=== PATIENT | female | born 1980 | race Two or more races ===

== ENCOUNTER 2020-09-21 13:38 | Outpatient (REF) | payer OTHER, MEDICAID, SELFPAY ==
[2020-09-21 14:56] LABS: Eosinophils Absolute Auto 0.1 X10*3/uL (0.0-0.4); Imm Gran Abs Auto 0.02 X10*3/uL (0.00-0.03); Imm Gran Pct Auto 0.4 % (0.0-0.4); MANUAL DIFF FLAG SCAN; SCAN SMEAR FLAG 1
[2020-09-21 14:58] LABS: Basophils Percent Auto 0.5 % (0-2); Eosinophils Percent Auto 1.9 % (0-4); Hematocrit 33.4 % (37-47); Hemoglobin 10.3 g/dl (12.0-16.0); Lymphocytes Absolute Auto 1.8 X10*3/uL (1.2-4.9); Mean Corpuscular HGB Conc 30.8 g/dl (31.0-35.0); Mean Corpuscular Hemoglobin 25.7 pg (27.0-33.0); Mean Corpuscular Volume 83.3 fL (80-98); Monocytes Absolute Auto 0.4 X10*3/uL (0.1-1.2); Monocytes Percent Auto 7.8 % (2-11); Neutrophils Absolute Auto 3.3 X10*3/uL (2.0-8.3); Neutrophils Percent Auto 58.4 % (45-73); Platelet Count 187 X10*3/uL (160-400); Red Blood Count 4.01 X10*6/uL (4.20-5.50); Red Cell Distribution Width 14.4 % (11.0-16.0); White Blood Count 5.7 X10*3/uL (4.8-10.8)
[2020-09-21 15:04] LABS: PLT ABN DIST 1
[2020-09-21 15:43] LABS: Ferritin 2 ng/mL (10-250)
== END 2020-09-21 13:39 | disposition home or self-care (01) ==
LOC: HO.LAB 13:38
PROVIDERS: Visit Provider Internal Medicine
DX: D64.9 Anemia, unspecified (principal)
CPT/HCPCS: 36415; 82728; 85025

== ENCOUNTER 2020-11-20 10:52 | Outpatient (REF) | payer OTHER, MEDICAID, SELFPAY ==
[2020-11-20 13:19] LABS: Hematocrit 35.5 % (37-47); Mean Corpuscular Hemoglobin 25.4 pg (27.0-33.0); Mean Platelet Volume 12.6 fL (9.4-12.3); Platelet Count 228 X10*3/uL (160-400); Red Blood Count 4.33 X10*6/uL (4.20-5.50)
[2020-11-20 14:15] LABS: Thyroid Stimulating Hormone 2.05 uIU/mL (0.32-4.0)
[2020-11-21 11:32] LABS: BV Int Neg Control Negative (Negative); BV Int Pos Control Positive (Positive)
[2020-11-21 13:52] LABS: C. trachomatis RNA TMA NOT DETECTED (NOT DETECTED); N. gonorrhoeae RNA TMA NOT DETECTED (NOT DETECTED)
[2020-11-22 02:17] LABS: Prolactin 14.9 ng/mL
[2020-11-23 17:56] LABS: DHEA Sulfate 231 mcg/dL (19-231)
[2020-11-26 11:48] LABS: Testosterone, Free 2.1 pg/mL (0.1-6.4); Testosterone, Total 22 ng/dL (2-45)
[2020-11-26 18:32] LABS: HPV mRNA E6/E7 rflx Not Detected (Not Detected)
== END 2020-11-20 10:53 | disposition home or self-care (01) ==
LOC: HO.LAB 10:52
PROVIDERS: PCP Internal Medicine; Referring Provider Internal Medicine; Visit Provider Advanced Practice Midwife
DX: Z12.4 Encounter for screening for malignant neoplasm of cervix (principal); N92.0 Excessive and frequent menstruation with regular cycle; L68.0 Hirsutism
CPT/HCPCS: 36415; 81025; 82627; 83498; 84146; 84402; 84403; 84443; 85027; 87480; 87491; 87510; 87591; 87624; 87660; 88142

== ENCOUNTER 2020-12-01 15:50 | Outpatient (REF) | payer OTHER, MEDICAID, SELFPAY ==
--- NOTE | 2020-12-01 15:55 | US_ITS ---
EXAMINATION: ULTRASOUND PELVIS COMPLETE. CLINICAL INFORMATION: Excessive and frequent menstruation with irregular cycle. COMPARISON: None TECHNIQUE: Transabdominal and transvaginal ultrasound the pelvis is performed. FINDINGS: Uterus is anteverted and heterogenous measuring 14.0 cm in length, 5.8 cm in AP and 6.5 cm in transverse dimension. There is solitary hypoechoic lesion in the posterior body of uterus consistent fibroid measuring 2.4 x 2.2 x 2.1 cm. No additional lesions seen. There are small nabothian cysts in the cervix on transvaginal ultrasound. The right ovary measures 5.1 x 3.2 x 1.8 cm and volume 15.4 mL. Left ovary measures 4.3 x 3.3 x 3.0 cm and volume 22.3 mL. Both ovaries are unremarkable. There is no free fluid in the cul-de-sac. US/US pelvic complete IMPRESSION: 1. Solitary uterine fibroid. Heterogenous and slightly enlarged uterus. 2. Nabothian cysts in cervix. 3. Unremarkable ovaries.
--- NOTE | 2020-12-01 15:55 | US_ITS ---
EXAMINATION: ULTRASOUND PELVIS COMPLETE. CLINICAL INFORMATION: Excessive and frequent menstruation with irregular cycle. COMPARISON: None TECHNIQUE: Transabdominal and transvaginal ultrasound the pelvis is performed. FINDINGS: Uterus is anteverted and heterogenous measuring 14.0 cm in length, 5.8 cm in AP and 6.5 cm in transverse dimension. There is solitary hypoechoic lesion in the posterior body of uterus consistent fibroid measuring 2.4 x 2.2 x 2.1 cm. No additional lesions seen. There are small nabothian cysts in the cervix on transvaginal ultrasound. The right ovary measures 5.1 x 3.2 x 1.8 cm and volume 15.4 mL. Left ovary measures 4.3 x 3.3 x 3.0 cm and volume 22.3 mL. Both ovaries are unremarkable. There is no free fluid in the cul-de-sac. US/US transvaginal IMPRESSION: 1. Solitary uterine fibroid. Heterogenous and slightly enlarged uterus. 2. Nabothian cysts in cervix. 3. Unremarkable ovaries.
== END 2020-12-01 15:51 | disposition home or self-care (01) ==
LOC: HO.US 15:50
PROVIDERS: PCP Internal Medicine; Visit Provider Advanced Practice Midwife
DX: N92.0 Excessive and frequent menstruation with regular cycle (principal)
CPT/HCPCS: 76830; 76856

== ENCOUNTER → 2020-12-07 12:01 | Outpatient (BNVA) | payer OTHER, MEDICAID, SELFPAY | PROVIDERS: PCP Internal Medicine; Visit Provider Advanced Practice Midwife ==

== ENCOUNTER 2020-12-22 13:47 | Outpatient (REF) | payer OTHER, MEDICAID, SELFPAY | END 2020-12-22 13:48 | disposition home or self-care (01) | LOC: HO.LAB 13:47 | PROVIDERS: Visit Provider Advanced Practice Midwife | DX: N93.9 Abnormal uterine and vaginal bleeding, unspecified (principal); Z32.02 Encounter for pregnancy test, result negative | CPT/HCPCS: 88305 ==

== ENCOUNTER 2020-12-22 15:32 | Outpatient (REF) | payer OTHER, MEDICAID, SELFPAY ==
--- NOTE | ~2020-12-22 | MM_ITS ---
EXAMINATION: MM SCREENING DIGITAL BREAST TOMOSYNTHESIS, BILATERAL CLINICAL INFORMATION: Screening. Asymptomatic. The lifetime risk of breast cancer based on the Tyrer-Cuzick Model is 11%. COMPARISON: Mammography: 09/02/2019 (baseline) TECHNIQUE: Digital breast tomosynthesis is performed in both the craniocaudal and mediolateral oblique views along with computer-aided detection (CAD). Synthesized 2D images are generated from the tomosynthesis. Additional exaggerated right CC view is provided. FINDINGS: There are scattered areas of fibroglandular density (ACR BI-RADS breast composition Category b). There are no significant masses, abnormal calcifications, or other abnormalities. Parenchymal pattern is similar to prior baseline exam. The axilla and skin contours are unremarkable. MM/MM tomosynthesis screening BI IMPRESSION: No mammographic evidence of malignancy. ASSESSMENT: BI-RADS 1: Negative RECOMMENDATION: Routine annual mammography screening. This patient's information was entered into a reminder system with a target due date for their next mammogram.
== END 2020-12-22 15:33 | disposition home or self-care (01) ==
LOC: HO.MAMMO 15:32
PROVIDERS: PCP Internal Medicine; Visit Provider Internal Medicine
DX: N93.9 Abnormal uterine and vaginal bleeding, unspecified (principal); Z12.31 Encounter for screening mammogram for malignant neoplasm of breast
CPT/HCPCS: 58100; 77063; 77067; 81025

== ENCOUNTER → 2020-12-29 15:20 | Outpatient (BNVA) | payer OTHER, MEDICAID, SELFPAY | PROVIDERS: PCP Internal Medicine; Visit Provider Advanced Practice Midwife ==

== ENCOUNTER 2021-03-23 11:02 | Emergency (ER) | payer OTHER, MEDICAID, SELFPAY ==
[2021-03-23 11:42] VITALS: BP 131/90; PULSE 86; RESP 18; TEMP 36.4; O2SAT 100; BMI 28.3
--- NOTE | 2021-03-23 12:01 | ED.GENADULT ---
HPI - General Adult General Chief complaint: General Medical Stated complaint: Sinus infection Time Seen by Provider: 03/23/21 12:01 History of Present Illness HPI narrative: Patient complains of frontal sinus headache, mild sinus pain, green nasal discharge, no congestion no other headache no fever no chills, no rash no cough no difficulty breathing no chest pain no sore throat Related Data Home Medications Medication Instructions Recorded Confirmed budesonide-formoterol HFA 80 2 puff INHALATION BID 10/16/20 03/30/21 mcg-4.5 mcg/actuation aerosol inhaler ferrous sulfate 324 mg (65 mg 324 mg PO DAILY 10/23/20 03/30/21 iron) tablet,delayed release Previous Rx's Medication Instructions Recorded ibuprofen 400 mg tablet 400 mg PO BID PRN #60 tab 10/16/20 omeprazole 20 mg capsule,delayed 20 mg PO .qhs 90 Days #90 cap 01/19/21 release amoxicillin 500 mg PO TID 10 Days #30 tab 03/23/21 desogestrel 0.15 mg-ethinyl 1 tab PO DAILY #28 tab 03/29/21 estradiol 0.03 mg tablet albuterol sulfate 90 mcg/actuation 1 puff PO QID PRN #8.5 g 03/30/21 aerosol inhaler cetirizine 10 mg capsule 10 mg PO DAILY PRN 90 Days #90 cap 03/30/21 Allergies Allergy/AdvReac Type Severity Reaction Status Date / Time morphine [Morphine] Allergy Intermediate VOMITING, Verified 03/30/21 15:40 N/V Penicillins Allergy Unknown Rash Verified 03/30/21 15:40 Review of Systems Review of Systems: Positive for frontal headache, sinus pain and green nasal discharge Negatives are no fever no chills no dizziness no weakness no fainting no vision changes no neck pain no stiff neck no sore throat no cough no sputum no shortness of breath PMFSH Past Medical History Source: nursing notes reviewed Medical History Asthma, moderate Chronic GERD Dysfunctional uterine bleeding Iron deficiency anemia Neck pain on left side Paresthesia of hand Surgical History H/O tubal ligation History of carpal tunnel surgery of right wrist Family History Family History Father No problems noted. Mother Breast cancer Diabetes mellitus Brother No problems noted. Brother No problems noted. Son No problems noted. Daughter No problems noted. Social History Social History Alcohol intake: never Smoking Status: Former smoker Sexual orientation: Straight/Heterosexual Physical Exam Vital Signs: Vital Signs: Last Vital Signs Temp 97.5 F 03/23/21 11:42 Pulse 86 03/23/21 11:42 Resp 18 03/23/21 11:42 BP 131/90 H 03/23/21 11:42 Pulse Ox 100 03/23/21 11:42 Body Mass Index 28.3 General appearance no acute distress The pupils equal round reactive to light, extraocular motions are intact, there is no discharge or redness The ears are clear bilaterally The nose there was tenderness over maxillary sinuses bilateral Pain was reproduced by putting the head down Pharynx was clear with no redness swelling or exudate Chest was clear to auscultation bilaterally with full symmetrical equal breath sounds The neck was supple Heart no murmur Skin no rashes Neuro no focal deficit, gait and balance were normal, verbal interaction expression and understanding were normal cranial nerves 2-12 intact as tested Course Course Course Narrative: Patient is treated for possible sinusitis, possible allergies and is well appearing and is discharged Discharge Plan Discharge Clinical Impression: Sinusitis Patient Disposition: Home, Self-Care Additional Instructions: This could be allergy, or possibly sinusitis so we are prescribing antibiotic amoxicillin and antihistamine cetirizine For dry sinuses you can use a humidifier, or if not available you can breathe steam from a warm shower or from boiling water, you can use saline nasal spray you can apply Vaseline inside the nose Return time any concerns Prescriptions: New amoxicillin 500 mg tablet 500 mg PO TID 10 Days Qty: 30 RF: 0 No Action budesonide-formoterol [Symbicort] 80-4.5 mcg/actuation HFA aerosol inhaler 2 puff inhalation BID RF: 0 ibuprofen 400 mg tablet 400 mg PO BID PRN (Reason: pain) Qty: 60 RF: 0 omeprazole 20 mg capsule,delayed release(DR/EC) 20 mg PO .qhs 90 Days Qty: 90 RF: 0 ferrous sulfate 324 mg (65 mg iron) tablet,delayed release (DR/EC) 324 mg PO DAILY RF: 0 cetirizine 10 mg capsule 10 mg PO DAILY PRN (Reason: allergy symptoms) 90 Days Qty: 90 RF: 3 albuterol sulfate 90 mcg/actuation HFA aerosol inhaler 1 puff PO QID PRN (Reason: for dyspnea) Qty: 8.5 RF: 3 desogestrel-ethinyl estradiol [Apri] 0.15-0.03 mg tablet 1 tab PO DAILY Qty: 28 RF: 7 Stand Alone Forms: Work/School Release Interventions: ED Discharge Assessment Last Done: 03/23/21 12:09 Discharge Date/Time: 03/23/21 12:09
== END 2021-03-23 12:09 | disposition home or self-care (01) ==
PROVIDERS: Emergency Provider Emergency Medicine; PCP Internal Medicine
DX: J32.9 Chronic sinusitis, unspecified (principal); Z91.09 Other allergy status, other than to drugs and biological substances; J45.909 Unspecified asthma, uncomplicated; Z87.891 Personal history of nicotine dependence
CPT/HCPCS: 99283

== ENCOUNTER → 2021-03-29 13:37 | Outpatient (BNVA) | payer OTHER, MEDICAID, SELFPAY | PROVIDERS: PCP Internal Medicine; Visit Provider Advanced Practice Midwife ==

== ENCOUNTER 2021-04-27 16:39 | Emergency (ER) | payer OTHER, MEDICAID, SELFPAY ==
[2021-04-27 17:03] VITALS: BP 126/74; PULSE 86; RESP 18; TEMP 35.9; O2SAT 98; BMI 28.8
[2021-04-27 17:58] LABS: MANUAL DIFF FLAG NO
[2021-04-27 18:00] LABS: Basophils Percent Auto 0.3 % (0-2); Eosinophils Absolute Auto 0.2 X10*3/uL (0.0-0.4); Eosinophils Percent Auto 2.1 % (0-4); Hematocrit 37.7 % (37-47); Hemoglobin 12.3 g/dl (12.0-16.0); Imm Gran Abs Auto 0.02 X10*3/uL (0.00-0.03); Imm Gran Pct Auto 0.3 % (0.0-0.4); Lymphocytes Percent Auto 26.3 % (20-40); Mean Corpuscular HGB Conc 32.6 g/dl (31.0-35.0); Mean Corpuscular Hemoglobin 28.9 pg (27.0-33.0); Mean Corpuscular Volume 88.7 fL (80-98); Mean Platelet Volume 12.9 fL (9.4-12.3); Monocytes Absolute Auto 0.6 X10*3/uL (0.1-1.2); Monocytes Percent Auto 7.6 % (2-11); Neutrophils Absolute Auto 4.8 X10*3/uL (2.0-8.3); Neutrophils Percent Auto 63.4 % (45-73); Platelet Count 170 X10*3/uL (160-400); Red Blood Count 4.25 X10*6/uL (4.20-5.50); Red Cell Distribution Width 15.5 % (11.0-16.0); White Blood Count 7.5 X10*3/uL (4.8-10.8)
[2021-04-27 18:28] LABS: Anion Gap 13 (12-20); Blood Urea Nitrogen 9 mg/dL (9-16); Calcium 8.8 mg/dL (8.4-10.2); Carbon Dioxide 25 mmol/L (22-29); Chloride 107 mmol/L (96-108); Creatinine Clr Calc Pharmacy 78.5; Estimated Glomerular Filt Rate > 60; Glucose Random 87 mg/dL (60-115); Potassium 3.9 mmol/L (3.3-5.1); Sodium 141 mmol/L (135-145)
[2021-04-27 22:33] VITALS: BP 118/74; PULSE 91; RESP 16; TEMP 36.9; O2SAT 100
--- NOTE | 2021-04-27 22:34 | ED.SKABFB ---
HPI - Skin/Abscess/Foreign Bdy General Chief complaint: Skin/Abscess/Foreign Body Stated complaint: bug bite Source: patient Mode of arrival: ambulatory Limitations: no limitations History of Present Illness HPI narrative: 40-year-old female presents with pain and swelling to the abdomen after being bit by a bug. She does have a pustule in the center of this area of swelling and redness. She did not report fevers, chills, chest pain or pressure, palpitations, shortness breath, shortness of breath on exertion, abdominal distention, dysuria, hematuria, edema, or any other concerns. MD complaint: insect bite/sting and abscess/boil Onset (ago): day(s) (To) Tetanus up to date: no Location: generalized (Abdomen) Severity: mild Severity scale (1-10): 3 Quality: burning and aching Pain Consistency: constant Relieving factors: none Exacerbating factors: palpation Context: witnessed insect bite Associated symptoms: denies other symptoms Treatments prior to arrival: attempted to drain pus at home and OTC topical medication Related Data Home Medications Medication Instructions Recorded Confirmed budesonide-formoterol HFA 80 2 puff INHALATION BID 10/16/20 03/30/21 mcg-4.5 mcg/actuation aerosol inhaler ferrous sulfate 324 mg (65 mg 324 mg PO DAILY 10/23/20 03/30/21 iron) tablet,delayed release Previous Rx's Medication Instructions Recorded ibuprofen 400 mg tablet 400 mg PO BID PRN #60 tab 10/16/20 omeprazole 20 mg capsule,delayed 20 mg PO .qhs 90 Days #90 cap 01/19/21 release amoxicillin 500 mg PO TID 10 Days #30 tab 03/23/21 desogestrel 0.15 mg-ethinyl 1 tab PO DAILY #28 tab 03/29/21 estradiol 0.03 mg tablet albuterol sulfate 90 mcg/actuation 1 puff PO QID PRN #8.5 g 03/30/21 aerosol inhaler cetirizine 10 mg capsule 10 mg PO DAILY PRN 90 Days #90 cap 03/30/21 doxycycline monohydrate 100 mg PO BID 10 Days #20 tab 04/27/21 Allergies Allergy/AdvReac Type Severity Reaction Status Date / Time morphine [Morphine] Allergy Intermediate VOMITING, Verified 04/27/21 17:03 N/V Penicillins Allergy Unknown Rash Verified 04/27/21 17:03 Review of Systems Review of Systems: Constitutional: No Fever, No Chills ENT/Mouth: No Ear Pain, No Hoarseness, No sore throat Eyes: No Eye Pain, No Swelling, No Redness, No Foreign Body Cardiovascular: No Chest Pain, No SOB Respiratory: No Cough, No Dyspnea Gastrointestinal: No Nausea, No Vomiting, No Diarrhea, No abdominal Pain Genitourinary: No Dysuria, No Hematuria Musculoskeletal: positive joint pain, No Myalgias, No Joint Swelling Skin: Positive cellulitis. No Skin lacerations, No rash Neuro: No Weakness, No Numbness, No Paresthesias, No Loss of Consciousness, No Dizziness, No Headache Psych: No Anxiety/Panic, No Depression Heme/Lymph: no easy bruising, no Lymphadenopathy Endocrine: No Polyuria, No Polydipsia Yes all other systems are reviewed and are negative [facility] Past Medical History Attestation statement: The following information was validated with the patient. Source: old records reviewed Medical History Asthma, moderate Chronic GERD Dysfunctional uterine bleeding Iron deficiency anemia Neck pain on left side Paresthesia of hand Surgical History H/O tubal ligation History of carpal tunnel surgery of right wrist Family History Family History Father No problems noted. Mother Breast cancer Diabetes mellitus Brother No problems noted. Brother No problems noted. Son No problems noted. Daughter No problems noted. Social History Social History Alcohol intake: never Advance Directives: No Advance Directives Information Provided: Yes Patient : No Sexual orientation: Straight/Heterosexual Physical Exam Vital Signs: Vital Signs: Last Vital Signs Temp 98.5 F 04/27/21 22:33 Pulse 91 04/27/21 22:33 Resp 16 04/27/21 22:33 BP 118/74 04/27/21 22:33 Pulse Ox 100 04/27/21 22:33 Body Mass Index 28.8 Appearance: Alert. Oriented X3. No acute distress. Eyes: Pupils equal, round and reactive to light. ENT: Pharynx normal. Neck: Normal inspection. Neck supple. CVS: Normal heart rate and rhythm. Pulses normal. Respiratory: No respiratory distress. Breath sounds normal. Abdomen: Soft and nontender. Skin: 5 cm x 3 cm area of induration and cellulitis to the left side of the abdomen just below the umbilicus. Skin warm and dry. Normal skin color. Normal skin turgor. Extremities: No lower extremity edema. Neuro: No motor deficit. No sensory deficit. Course Course Course Narrative: 40-year-old female presents with cellulitis from insect bite to left lower abdomen beginning at the umbilicus. There is a head, will attempt to incise and drain culture. Prepped and draped in sterile fashion. 0 mL of fluid expressed. Will treat with doxycycline. Patient verbalized understanding of and agrees plan of care discharge home. MDM - Skin/Abscess/Foreign Bdy Differential Diagnosis Differential diagnosis: Likely abscess of skin or subcutaneous tissue and cellulitis Medical Records Attestation: I reviewed the patient's medical records. Lab Data Attestation: I reviewed the patient's lab results. Result diagrams: 04/27/21 17:45 04/27/21 17:45 Labs: Lab Results 04/27/21 04/27/21 Range/Units 17:45 17:45 WBC 7.5 (4.8-10.8) X10*3/uL RBC 4.25 (4.20-5.50) X10*6/uL Hgb 12.3 (12.0-16.0) g/dl Hct 37.7 (37-47) % MCV 88.7 (80-98) fL MCH 28.9 (27.0-33.0) pg MCHC 32.6 (31.0-35.0) g/dl RDW 15.5 (11.0-16.0) % Plt Count 170 D (160-400) X10*3/uL MPV 12.9 H (9.4-12.3) fL Immature Gran % (Auto) 0.3 (0.0-0.4) % Neut % (Auto) 63.4 (45-73) % Lymph % (Auto) 26.3 (20-40) % [place] % (Auto) 7.6 (2-11) % Eos % (Auto) 2.1 (0-4) % Baso % (Auto) 0.3 (0-2) % Lymph # (Auto) 2.0 (1.2-4.9) X10*3/uL [place] # (Auto) 0.6 (0.1-1.2) X10*3/uL Eos # (Auto) 0.2 (0.0-0.4) X10*3/uL Baso # (Auto) 0.0 (0.0-0.2) X10*3/uL Abs Immat Gran (auto) 0.02 (0.00-0.03) X10*3/uL Absolute Neuts (auto) 4.8 (2.0-8.3) X10*3/uL Absolute Nucleated RBC 0.000 (0.0-0.012) X10*3/uL Nucleated RBC % (auto) 0.0 (0.0-0.2) /100WBC Sodium 141 (135-145) mmol/L Potassium 3.9 (3.3-5.1) mmol/L Chloride 107 (96-108) mmol/L Carbon Dioxide 25 (22-29) mmol/L Anion Gap 13 (12-20) BUN 9 (9-16) mg/dL Creatinine 0.94 (0.5-1.4) mg/dL Estim Creat Clear Calc 78.5 Estimated GFR > 60 Random Glucose 87 (60-115) mg/dL Calcium 8.8 (8.4-10.2) mg/dL Discharge Plan Discharge Clinical Impression: Cellulitis Qualifiers: Site of cellulitis: trunk Site of cellulitis of trunk: abdominal wall Qualified Code(s): L03.311 - Cellulitis of abdominal wall Patient Disposition: Home, Self-Care Instructions: Cellulitis (ED) Additional Instructions: you were evaluated for cellulitis around an insect bite to her abdomen. Please take doxycycline twice a day for the next 10 days. Please do not expose Yourself to sunlight as you may experience a significant medication reaction. Thank you for choosing this emergency department for evaluation. Please follow-up with primary care physician as needed. Return to the emergency department for any new, concerning, or worsening symptoms. Prescriptions: New doxycycline monohydrate 100 mg tablet 100 mg PO BID 10 Days Qty: 20 RF: 0 No Action budesonide-formoterol [Symbicort] 80-4.5 mcg/actuation HFA aerosol inhaler 2 puff inhalation BID RF: 0 ibuprofen 400 mg tablet 400 mg PO BID PRN (Reason: pain) Qty: 60 RF: 0 omeprazole 20 mg capsule,delayed release(DR/EC) 20 mg PO .qhs 90 Days Qty: 90 RF: 0 amoxicillin 500 mg tablet 500 mg PO TID 10 Days Qty: 30 RF: 0 ferrous sulfate 324 mg (65 mg iron) tablet,delayed release (DR/EC) 324 mg PO DAILY RF: 0 cetirizine 10 mg capsule 10 mg PO DAILY PRN (Reason: allergy symptoms) 90 Days Qty: 90 RF: 3 albuterol sulfate 90 mcg/actuation HFA aerosol inhaler 1 puff PO QID PRN (Reason: for dyspnea) Qty: 8.5 RF: 3 desogestrel-ethinyl estradiol [Apri] 0.15-0.03 mg tablet 1 tab PO DAILY Qty: 28 RF: 7 Interventions: ED Discharge Assessment Last Done: 04/28/21 00:23 Discharge Date/Time: 04/28/21 00:28
[2021-04-27] MEDS: Diphth,Pertus(ACell),Tet Adult 0.5 ML SYRINGE IM (23:07)
[2021-04-27] MEDS: Lidocaine HCl 2 % MPF 5 ML VIAL SUBCUT (23:07)
== END 2021-04-28 00:28 | disposition home or self-care (01) ==
PROVIDERS: Internal Medicine; Emergency Provider Emergency Medicine; PCP Internal Medicine
DX: L03.311 Cellulitis of abdominal wall (principal); S30.861A Insect bite (nonvenomous) of abdominal wall, initial encounter; L02.211 Cutaneous abscess of abdominal wall; B95.61 Methicillin susceptible Staphylococcus aureus infection as the cause of diseases classified elsewhere; W57.XXXA Bitten or stung by nonvenomous insect and other nonvenomous arthropods, initial encounter; Y93.9 Activity, unspecified; Y92.9 Unspecified place or not applicable; Y99.9 Unspecified external cause status
CPT/HCPCS: 36415; 80048; 85025; 87071; 87147; 87186; 87205; 90471; 90715; 99284

== ENCOUNTER 2021-04-30 13:25 | Emergency (ER) | payer OTHER, MEDICAID, SELFPAY ==
[2021-04-30 15:05] VITALS: BP 108/69; PULSE 77; RESP 18; TEMP 37; O2SAT 100; BMI 28.3
[2021-04-30 16:28] LABS: MANUAL DIFF FLAG NO
[2021-04-30 16:31] LABS: Basophils Percent Auto 0.3 % (0-2); Eosinophils Absolute Auto 0.1 X10*3/uL (0.0-0.4); Hematocrit 37.1 % (37-47); Hemoglobin 12.1 g/dl (12.0-16.0); Imm Gran Abs Auto 0.03 X10*3/uL (0.00-0.03); Imm Gran Pct Auto 0.5 % (0.0-0.4); Lymphocytes Absolute Auto 1.8 X10*3/uL (1.2-4.9); Lymphocytes Percent Auto 29.6 % (20-40); Mean Corpuscular HGB Conc 32.6 g/dl (31.0-35.0); Mean Corpuscular Hemoglobin 28.9 pg (27.0-33.0); Mean Corpuscular Volume 88.5 fL (80-98); Mean Platelet Volume 12.8 fL (9.4-12.3); Monocytes Absolute Auto 0.4 X10*3/uL (0.1-1.2); Monocytes Percent Auto 7.4 % (2-11); Neutrophils Absolute Auto 3.6 X10*3/uL (2.0-8.3); Neutrophils Percent Auto 60.2 % (45-73); Platelet Count 171 X10*3/uL (160-400); Red Blood Count 4.19 X10*6/uL (4.20-5.50); Red Cell Distribution Width 15.2 % (11.0-16.0); White Blood Count 5.9 X10*3/uL (4.8-10.8)
[2021-04-30 16:59] LABS: Alanine Aminotransferase 10 U/L (0-31); Alkaline Phosphatase 74 U/L (39-117); Anion Gap 13 (12-20); Aspartate Amino Transferase 17 U/L (5-31); Bilirubin Total 0.8 mg/dL (0.0-1.0); Blood Urea Nitrogen 9 mg/dL (9-16); Calcium 9.1 mg/dL (8.4-10.2); Carbon Dioxide 24 mmol/L (22-29); Chloride 106 mmol/L (96-108); Creatinine Clr Calc Pharmacy 92.7; Estimated Glomerular Filt Rate > 60; Glucose Random 91 mg/dL (60-115); Potassium 4.2 mmol/L (3.3-5.1); Sodium 139 mmol/L (135-145); Total Protein 7.5 g/dL (6.5-8.0)
--- NOTE | 2021-04-30 17:31 | ED_ITS ---
HPI - General Adult General Chief complaint: Wound/Laceration Stated complaint: wound check Time Seen by Provider: 04/30/21 14:36 Source: patient Mode of arrival: ambulatory Limitations: no limitations History of Present Illness HPI narrative: 1-year-old female here today for wound check. Patient was seen today days ago after she was bit by an insect and was found to have infective wound around her umbilicus. The area was swabbed and sent for micro testing and she was placed on doxycycline b.i.d. for 10 days. Today culture came back showing MRSA. Susceptible to tetracycline patient is already on doxycycline. She was worried that her wound might have been getting worst. Patient reports that it started draining pus. Patient reports that she was called by 1 of that emergency room providers this morning and was told to come back if her symptoms were getting worse. Patient denies any fever or chills. Denies any other concerning symptoms. Reports the area is hard, about 2 cm round with hole in the middle that is draining fluid. Patient denies any odor, blood. Reports to be painful to touch. Related Data Home Medications Medication Instructions Recorded Confirmed budesonide-formoterol HFA 80 2 puff INHALATION BID 10/16/20 03/30/21 mcg-4.5 mcg/actuation aerosol inhaler ferrous sulfate 324 mg (65 mg 324 mg PO DAILY 10/23/20 03/30/21 iron) tablet,delayed release Previous Rx's Medication Instructions Recorded ibuprofen 400 mg tablet 400 mg PO BID PRN #60 tab 10/16/20 omeprazole 20 mg capsule,delayed 20 mg PO .qhs 90 Days #90 cap 01/19/21 release amoxicillin 500 mg PO TID 10 Days #30 tab 03/23/21 desogestrel 0.15 mg-ethinyl 1 tab PO DAILY #28 tab 03/29/21 estradiol 0.03 mg tablet albuterol sulfate 90 mcg/actuation 1 puff PO QID PRN #8.5 g 03/30/21 aerosol inhaler cetirizine 10 mg capsule 10 mg PO DAILY PRN 90 Days #90 cap 03/30/21 doxycycline monohydrate 100 mg PO BID 10 Days #20 tab 04/27/21 cephalexin 500 mg PO BID 10 Days #20 cap 04/30/21 ibuprofen 600 mg PO Q8H PRN #20 tab 06/18/21 Allergies Allergy/AdvReac Type Severity Reaction Status Date / Time morphine [Morphine] Allergy Intermediate VOMITING, Verified 04/27/21 17:03 N/V Penicillins Allergy Unknown Rash Verified 04/27/21 17:03 Review of Systems Review of Systems: Constitutional : No Weight loss, No Fever, No Chills, No Night Sweats, No Fatigue, No Malaise ENT/Mouth : No Hearing loss, No Ear Pain, No Nasal Congestion, No Sinus Pain, No Hoarseness, No sore throat, No Rhinorrhea, No Swallowing Difficulty Eyes: No Eye Pain, No Swelling, No Redness, No Foreign Body, No Discharge, No Vision Changes Cardiovascular : No Chest Pain, No SOB, No Dyspnea on Exertion, No Orthopnea, No Edema, No Palpitations Respiratory : No Cough, No Sputum, No Wheezing, No Smoke Exposure, No Dyspnea Gastrointestinal : No Nausea, No Vomiting, No Diarrhea, No Constipation, No abdominal Pain, No Hematochezia, No Melena Genitourinary : no irregular bleeding, No Dysuria, No Urinary Frequency, No Hematuria, No Urinary Incontinence, No Urgency, No Flank Pain, No Urinary Flow Changes, No Hesitancy Musculoskeletal : No joint pain, No Myalgias, No Joint Swelling Skin : No Skin Lesions, No rash, insect bite to abdominal area Neuro : No Weakness, No Numbness, No Paresthesias, No Loss of Consciousness, No Dizziness, No Headache Psych : No Anxiety/Panic, No Depression, No SI/HI/AH/VH, No Social Issues, Heme/Lymph: No Bruising, No Bleeding,No Lymphadenopathy Endocrine : No Polyuria, No Polydipsia, No Temperature Intolerance Yes all other systems are reviewed and are negative [facility] Past Medical History Medical History Asthma, moderate Chronic GERD Dysfunctional uterine bleeding Iron deficiency anemia Neck pain on left side Paresthesia of hand Surgical History H/O tubal ligation History of carpal tunnel surgery of right wrist Family History Family History Father No problems noted. Mother Breast cancer Diabetes mellitus Brother No problems noted. Brother No problems noted. Son No problems noted. Daughter No problems noted. Social History Social History Alcohol intake: never Advance Directives: No Advance Directives Information Provided: No Patient : No Sexual orientation: Straight/Heterosexual Physical Exam Vital Signs: Vital Signs: Last Vital Signs Temp 98.6 F 04/30/21 15:05 Pulse 77 04/30/21 15:05 Resp 18 04/30/21 15:05 BP 108/69 04/30/21 15:05 Pulse Ox 100 04/30/21 15:05 Body Mass Index 28.3 Const: General: healthy appearing, no acute distress and well developed Nutritional Appearance: well nourished Orientation/consciousness: patient oriented x3 Neck: Neck: Yes normal visual inspection, Yes full ROM and Yes trachea midline Thyroid: Thyroid normal Resp: Auscultation: clear to auscultation bilaterally Cardio: Rate: regular rate Rhythm: regular rhythm GI: Inspection: Yes normal to inspection and No distended Palpation (GI): No hepatosplenomegaly present Auscultation: normal bowel sounds Skin: General skin exam: elasticity normal, turgor normal, dry skin and other (2 cm raised redness with 3 mm open area in the middle that it is draining ) Neuro: General: patient oriented x3 Course Course Course Narrative: 40-year-old here for wound check. Patient was seen here on a 16 for insect bite. She refused states that she scratched the area and the area got infected. Was placed on doxycycline. Today's is 2nd day on it. Results of the culture came back as MRSA. Patient is on appropriate treatment. Wound is draining. Negative for redness or increased warmth. Area painful I will have for go home and continue doxycycline. I will give her script for ibuprofen. Patient was told to monitor her wound. Apply warm compresses to promote drainage. Areas already draining. Patient does not want to have incision to open the area more. She was told to return in 3-4 days if the area will not get better. Patient is agreeable to plan of care and verbalizes understanding. She was given the opportunity to ask questions and all questions answered. Medical Decision Making Lab Data Result diagrams: 04/30/21 16:08 04/30/21 16:08 Labs: Lab Results 04/30/21 04/30/21 Range/Units 16:08 16:08 WBC 5.9 (4.8-10.8) X10*3/uL RBC 4.19 L (4.20-5.50) X10*6/uL Hgb 12.1 (12.0-16.0) g/dl Hct 37.1 (37-47) % MCV 88.5 (80-98) fL MCH 28.9 (27.0-33.0) pg MCHC 32.6 (31.0-35.0) g/dl RDW 15.2 (11.0-16.0) % Plt Count 171 (160-400) X10*3/uL MPV 12.8 H (9.4-12.3) fL Immature Gran % (Auto) 0.5 H (0.0-0.4) % Neut % (Auto) 60.2 (45-73) % Lymph % (Auto) 29.6 (20-40) % [place] % (Auto) 7.4 (2-11) % Eos % (Auto) 2.0 (0-4) % Baso % (Auto) 0.3 (0-2) % Lymph # (Auto) 1.8 (1.2-4.9) X10*3/uL [place] # (Auto) 0.4 (0.1-1.2) X10*3/uL Eos # (Auto) 0.1 (0.0-0.4) X10*3/uL Baso # (Auto) 0.0 (0.0-0.2) X10*3/uL Abs Immat Gran (auto) 0.03 (0.00-0.03) X10*3/uL Absolute Neuts (auto) 3.6 (2.0-8.3) X10*3/uL Absolute Nucleated RBC 0.000 (0.0-0.012) X10*3/uL Nucleated RBC % (auto) 0.0 (0.0-0.2) /100WBC Sodium 139 (135-145) mmol/L Potassium 4.2 (3.3-5.1) mmol/L Chloride 106 (96-108) mmol/L Carbon Dioxide 24 (22-29) mmol/L Anion Gap 13 (12-20) BUN 9 (9-16) mg/dL Creatinine 0.82 (0.5-1.4) mg/dL Estim Creat Clear Calc 92.7 Estimated GFR > 60 Random Glucose 91 (60-115) mg/dL Calcium 9.1 (8.4-10.2) mg/dL Total Bilirubin 0.8 (0.0-1.0) mg/dL AST 17 (5-31) U/L ALT 10 (0-31) U/L Alkaline Phosphatase 74 (39-117) U/L Total Protein 7.5 (6.5-8.0) g/dL Albumin 4.0 (3.5-5.0) g/dL Discharge Plan Discharge Clinical Impression: Abscess, MRSA cellulitis Patient Disposition: Home, Self-Care Instructions: MRSA (Methicillin-Resistant Staphylococcus Aureus) (ED), Abscess (ED) Additional Instructions: You were seen here today for a wound check. Culture came back positive for M RSA. You are on appropriate treatment for that type of an infection. Please apply warm compresses to the area for 15 minutes at the time. Monitor the area for increased redness, fever and chills. Let the wound continue to drain. Please make sure you complete all your antibiotics. You will get script for anti-inflammatory medication that will help with your pain. Please take it as prescribed. Make sure you take the medication on a full stomach. You may return to emergency department if the symptoms will get worse or if he will experience any other concerning symptoms. Prescriptions: New ibuprofen 600 mg tablet 600 mg PO Q8H PRN (Reason: pain) Qty: 20 RF: 0 No Action budesonide-formoterol [Symbicort] 80-4.5 mcg/actuation HFA aerosol inhaler 2 puff inhalation BID RF: 0 ibuprofen 400 mg tablet 400 mg PO BID PRN (Reason: pain) Qty: 60 RF: 0 omeprazole 20 mg capsule,delayed release(DR/EC) 20 mg PO .qhs 90 Days Qty: 90 RF: 0 amoxicillin 500 mg tablet 500 mg PO TID 10 Days Qty: 30 RF: 0 doxycycline monohydrate 100 mg tablet 100 mg PO BID 10 Days Qty: 20 RF: 0 cephalexin 500 mg capsule 500 mg PO BID 10 Days Qty: 20 RF: 0 ferrous sulfate 324 mg (65 mg iron) tablet,delayed release (DR/EC) 324 mg PO DAILY RF: 0 cetirizine 10 mg capsule 10 mg PO DAILY PRN (Reason: allergy symptoms) 90 Days Qty: 90 RF: 3 albuterol sulfate 90 mcg/actuation HFA aerosol inhaler 1 puff PO QID PRN (Reason: for dyspnea) Qty: 8.5 RF: 3 desogestrel-ethinyl estradiol [Apri] 0.15-0.03 mg tablet 1 tab PO DAILY Qty: 28 RF: 7 Interventions: ED Discharge Assessment Last Done: 04/30/21 17:45 Discharge Date/Time: 04/30/21 17:54
== END 2021-04-30 17:54 | disposition home or self-care (01) ==
PROVIDERS: Emergency Provider Internal Medicine; PCP Internal Medicine
DX: L03.316 Cellulitis of umbilicus (principal); B95.62 Methicillin resistant Staphylococcus aureus infection as the cause of diseases classified elsewhere; S30.861D Insect bite (nonvenomous) of abdominal wall, subsequent encounter; W57.XXXD Bitten or stung by nonvenomous insect and other nonvenomous arthropods, subsequent encounter
CPT/HCPCS: 36415; 80053; 85025; 99283

== ENCOUNTER 2021-09-05 10:42 | Emergency (ER) | payer OTHER, MEDICAID, SELFPAY ==
[2021-09-05 10:49] VITALS: BP 120/76; PULSE 88; RESP 18; TEMP 36.1; O2SAT 97; BMI 28.3
--- NOTE | 2021-09-05 11:02 | ED_ITS ---
HPI - General Adult General Chief complaint: Extremity Problem Stated complaint: ?inf toe Time Seen by Provider: 09/05/21 10:52 Source: patient Mode of arrival: ambulatory Limitations: no limitations History of Present Illness HPI narrative: Patient presents to the ED left big toe pain with surround redness near area of pedicure that occurred two days ago. patient states while and soon after pedicure patient had soreness and the day after there was redness. patient denies any pus discharge, fever, chills, blunt trauma, or any other conerning symptoms. Related Data Home Medications Medication Instructions Recorded Confirmed budesonide-formoterol HFA 80 2 puff INHALATION BID 10/16/20 03/30/21 mcg-4.5 mcg/actuation aerosol inhaler (Symbicort) desogestrel 0.15 mg-ethinyl 1 tab PO DAILY 07/12/21 estradiol 0.03 mg tablet (Isibloom) Previous Rx's Medication Instructions Recorded ibuprofen 400 mg tablet 400 mg PO BID PRN #60 tab 10/16/20 amoxicillin 500 mg tablet 500 mg PO TID 10 Days #30 tab 03/23/21 desogestrel 0.15 mg-ethinyl 1 tab PO DAILY #28 tab 03/29/21 estradiol 0.03 mg tablet (Apri) albuterol sulfate 90 mcg/actuation 1 puff PO QID PRN #8.5 g 03/30/21 aerosol inhaler cetirizine 10 mg capsule 10 mg PO DAILY PRN 90 Days #90 cap 03/30/21 doxycycline monohydrate 100 mg 100 mg PO BID 10 Days #20 tab 04/27/21 tablet cephalexin 500 mg capsule 500 mg PO BID 10 Days #20 cap 04/30/21 ibuprofen 600 mg tablet 600 mg PO Q8H PRN #20 tab 04/30/21 prednisone 20 mg tablet 20 mg PO .COMPLEX #18 tab 07/12/21 omeprazole 20 mg capsule,delayed 20 mg PO .qhs 90 Days #90 cap 08/03/21 release ferrous sulfate 325 mg (65 mg 325 mg PO DAILY #30 tab 08/23/21 iron) tablet,delayed release cephalexin 500 mg capsule 500 mg PO QID 7 Days #28 cap 09/05/21 doxycycline hyclate 100 mg tablet 100 mg PO BID 7 Days #14 tab 09/05/21 naproxen 500 mg tablet 500 mg PO BID PRN #28 tab 09/05/21 Allergies Allergy/AdvReac Type Severity Reaction Status Date / Time morphine [Morphine] Allergy Intermediate VOMITING, Verified 07/12/21 14:29 N/V Penicillins Allergy Unknown Rash Verified 04/27/21 17:03 Review of Systems Review of Systems: Yes all other systems are reviewed and are negative Constitutional: Constitutional: Reports as per HPI and Reports no additional constitutional complaints Eyes: Eyes: Reports as per HPI and Reports no additional eye complaints ENT: Reports system reviewed and no additional complaints, except as documented and Reports as per HPI Cardiovascular: Cardiovascular: Reports as per HPI and Reports no additional cardiovascular complaints Respiratory: Respiratory: Reports as per HPI and Reports no additional respiratory complaints Gastrointestinal: Gastrointestinal: Reports as per HPI and Reports no additional gastrointestinal complaints Genitourinary: Genitourinary: Reports no additional female genitourinary complaints and Reports as per HPI Musculoskeletal: Musculoskeletal: Reports no additional musculoskeletal complaints and Reports as per HPI Comments: big toe redness. [facility] [place] Past Medical History Medical History Asthma, moderate Chronic GERD Dysfunctional uterine bleeding Iron deficiency anemia Neck pain on left side Paresthesia of hand Surgical History H/O tubal ligation History of carpal tunnel surgery of right wrist Family History Family History Father No problems noted. Mother Breast cancer Diabetes mellitus Brother No problems noted. Brother No problems noted. Son No problems noted. Daughter No problems noted. Social History Social History Alcohol intake: never Advance Directives: No Patient : No Sexual orientation: Straight/Heterosexual Physical Exam Vital Signs: Vital Signs: Last Vital Signs Temp 97 F 09/05/21 10:49 Pulse 88 09/05/21 10:49 Resp 18 09/05/21 10:49 BP 120/76 09/05/21 10:49 Pulse Ox 97 09/05/21 10:49 Body Mass Index 28.3 Const: General: cooperative, healthy appearing, comfortable, no acute distress, well developed, alert and awake Orientation/consciousness: patient oriented x3 HENMT: Head: Yes normal to inspection, Yes No palpable skull fracture present, Yes normocephalic and Yes atraumatic Eyes: General: appearance normal, both eyes and all related structures Neck: Neck: Yes normal visual inspection, Yes full ROM, Yes no lymphadenopath y, Yes no meningeal signs, Yes trachea midline, Yes supple and No tender Chest: Chest palpation & inspection: normal inspection of the chest and normal palpation of entire chest wall Resp: Effort & Inspection: normal respiratory effort and able to speak in complete sentences Auscultation: clear to auscultation bilaterally Cardio: Jugular venous distension: no JVD Heart sounds: S1 normal heart sound present and S2 normal heart sound present GI: Inspection: Yes normal to inspection and No abdominal wall ecchymosis Palpation (GI): Soft to palpation, not firm, nontender, no guarding and not rigid : General: No CVA tenderness and Yes no CVA tenderness Back/Spine/Pelvis: Back: no CVA tenderness, No CVA tenderness and No back tenderness Neuro: General: patient oriented x3, gait normal, no meningeal signs and CN's II-XI intact bilaterally Extrem: General: Yes normal to inspection and Yes full ROM Ankle/foot/toe images: 1. positive for erythema and tenderness. negative for pus discharge, green disclorcation, deformity, ecchymosis, wounds, ulcers, foul odor, or coldness. motor, neuro, and vascular exam is intact. Psych: Appearance: grossly normal, well kempt and not disheveled Course Course Course Narrative: History and physical exam indicates more early cellulitis vs early parynochia. no I &D indicated. No suspecting ingrown toe nail. No nail extraction indicated. Reevaluation(s) Reevaluation #1: Patient will be discharged with antibiotics, and educated on warm compress and warm soaks. Time: 11:22 Medical Decision Making [facility] [place] Narrative Medical decision making narrative: Early cellulitis vs early paronchia Discharge Plan Discharge Clinical Impression: Cellulitis, Paronychia of great toe Patient Disposition: Home, Self-Care Instructions: Paronychia (ED), Cellulitis (ED), Warm Compress or Soak (ED) Additional Instructions: History and physical exam inidicates more cellulitis vs eary paronychia. No incision or drainage recommedned. Recommed warm compress or warm soaks at least 4 times a day for 15 minutes. Return to the immediately for worsening pain, redness, greeen discloration, pus discharge, foul odor, fever, chills, or any other concerning symptoms. Return to the ED in 4 days if no improvement. Please follow up with PCP. Prescriptions: New cephalexin 500 mg capsule 500 mg PO QID 7 Days Qty: 28 RF: 0 doxycycline hyclate 100 mg tablet 100 mg PO BID 7 Days Qty: 14 RF: 0 naproxen 500 mg tablet 500 mg PO BID PRN (Reason: pain) Qty: 28 RF: 0 No Action budesonide-formoterol [Symbicort] 80-4.5 mcg/actuation HFA aerosol inhaler 2 puff inhalation BID RF: 0 ibuprofen 400 mg tablet 400 mg PO BID PRN (Reason: pain) Qty: 60 RF: 0 omeprazole 20 mg capsule,delayed release(DR/EC) 20 mg PO .qhs 90 Days Qty: 90 RF: 0 ferrous sulfate 325 mg (65 mg iron) tablet,delayed release (DR/EC) 325 mg PO DAILY Qty: 30 RF: 2 amoxicillin 500 mg tablet 500 mg PO TID 10 Days Qty: 30 RF: 0 doxycycline monohydrate 100 mg tablet 100 mg PO BID 10 Days Qty: 20 RF: 0 cephalexin 500 mg capsule 500 mg PO BID 10 Days Qty: 20 RF: 0 ibuprofen 600 mg tablet 600 mg PO Q8H PRN (Reason: pain) Qty: 20 RF: 0 desogestrel-ethinyl estradiol [Isibloom] 0.15-0.03 mg tablet 1 tab PO DAILY RF: 0 prednisone 20 mg tablet 20 mg PO .COMPLEX Qty: 18 RF: 0 cetirizine 10 mg capsule 10 mg PO DAILY PRN (Reason: allergy symptoms) 90 Days Qty: 90 RF: 3 albuterol sulfate 90 mcg/actuation HFA aerosol inhaler 1 puff PO QID PRN (Reason: for dyspnea) Qty: 8.5 RF: 3 desogestrel-ethinyl estradiol [Apri] 0.15-0.03 mg tablet 1 tab PO DAILY Qty: 28 RF: 7 Interventions: ED Discharge Assessment Last Done: 09/05/21 11:41 Discharge Date/Time: 09/05/21 11:41 Print Language: Greenlandic
[2021-09-05] MEDS: Ibuprofen 800 MG TABLET PO (11:12)
== END 2021-09-05 11:41 | disposition home or self-care (01) ==
PROVIDERS: Emergency Provider Emergency Medicine; PCP Internal Medicine
DX: L03.032 Cellulitis of left toe (principal); Z79.899 Other long term (current) drug therapy
CPT/HCPCS: 99283; 99284

== ENCOUNTER 2021-09-15 08:47 | Outpatient (REF) | payer OTHER, MEDICAID, SELFPAY ==
[2021-09-15 11:46] LABS: Basophils Percent Auto 0.4 % (0-2); Imm Gran Abs Auto 0.02 X10*3/uL (0.00-0.03); Imm Gran Pct Auto 0.4 % (0.0-0.4); Red Cell Distribution Width 12.1 % (11.0-16.0)
[2021-09-15 11:48] LABS: Eosinophils Absolute Auto 0.2 X10*3/uL (0.0-0.4); Eosinophils Percent Auto 3.3 % (0-4); Hemoglobin 13.1 g/dl (12.0-16.0); Lymphocytes Absolute Auto 1.5 X10*3/uL (1.2-4.9); Lymphocytes Percent Auto 31.3 % (20-40); Mean Corpuscular HGB Conc 34.5 g/dl (31.0-35.0); Mean Corpuscular Hemoglobin 33.2 pg (27.0-33.0); Mean Corpuscular Volume 96.4 fL (80.0-98.0); Mean Platelet Volume 13.1 fL (9.4-12.3); Monocytes Absolute Auto 0.5 X10*3/uL (0.1-1.2); Monocytes Percent Auto 9.8 % (2-11); Neutrophils Absolute Auto 2.64 x10*3/uL (2.0-8.3); Neutrophils Percent Auto 54.8 % (45-73); Platelet Count 149 X10*3/uL (160-400); Red Blood Count 3.94 X10*6/uL (4.20-5.50); White Blood Count 4.8 X10*3/uL (4.8-10.8)
[2021-09-15 12:34] LABS: Ferritin 45 ng/mL (10-250)
== END 2021-09-15 08:48 | disposition home or self-care (01) ==
LOC: HO.HMGCLDS 08:47
PROVIDERS: Visit Provider Internal Medicine
DX: D64.9 Anemia, unspecified (principal); J45.909 Unspecified asthma, uncomplicated
CPT/HCPCS: 36415; 82728; 85025

== ENCOUNTER 2021-11-11 14:39 | Outpatient (REF) | payer OTHER, MEDICAID, SELFPAY ==
[2021-11-11 16:29] LABS: MANUAL DIFF FLAG NO
[2021-11-11 16:32] LABS: Basophils Percent Auto 0.4 % (0-2); Eosinophils Absolute Auto 0.2 X10*3/uL (0.0-0.4); Eosinophils Percent Auto 2.3 % (0-4); Hematocrit 40.3 % (37.0-47.0); Imm Gran Abs Auto 0.03 X10*3/uL (0.00-0.03); Imm Gran Pct Auto 0.4 % (0.0-0.4); Lymphocytes Absolute Auto 2.4 X10*3/uL (1.2-4.9); Lymphocytes Percent Auto 34.4 % (20-40); Mean Corpuscular HGB Conc 34.7 g/dl (31.0-35.0); Monocytes Absolute Auto 0.6 X10*3/uL (0.1-1.2); Monocytes Percent Auto 8.8 % (2-11); Neutrophils Absolute Auto 3.7 x10*3/uL (2.0-8.3); Neutrophils Percent Auto 53.7 % (45-73); Platelet Count 169 X10*3/uL (160-400); Red Blood Count 4.24 X10*6/uL (4.20-5.50); Red Cell Distribution Width 11.7 % (11.0-16.0)
[2021-11-11 16:43] LABS: Alanine Aminotransferase 49 U/L (0-31); Albumin Level 4.1 g/dL (3.5-5.0); Alkaline Phosphatase 68 U/L (39-117); Anion Gap 11 (12-20); Aspartate Amino Transferase 36 U/L (5-31); Bilirubin Total 0.8 mg/dL (0.0-1.0); Blood Urea Nitrogen 11 mg/dL (9-16); Calcium 9.5 mg/dL (8.4-10.2); Carbon Dioxide 28 mmol/L (22-29); Chloride 103 mmol/L (96-108); Estimated Glomerular Filt Rate > 60; Glucose Random 91 mg/dL (60-115); Potassium 4.1 mmol/L (3.3-5.1); Sodium 138 mmol/L (135-145); Total Protein 7.7 g/dL (6.5-8.0)
== END 2021-11-11 14:40 | disposition home or self-care (01) ==
LOC: HO.HMGCLDS 14:39
PROVIDERS: PCP Internal Medicine; Visit Provider Internal Medicine
DX: J45.909 Unspecified asthma, uncomplicated (principal); K21.9 Gastro-esophageal reflux disease without esophagitis; R21 Rash and other nonspecific skin eruption; Z91.09 Other allergy status, other than to drugs and biological substances
CPT/HCPCS: 36415; 80053; 85025

== ENCOUNTER 2021-11-25 09:01 | Emergency (ER) | payer OTHER, MEDICAID, SELFPAY ==
--- NOTE | ~2021-11-25 | US_ITS ---
EXAMINATION: US PELVIS CLINICAL INFORMATION: Pelvic pain and bleeding. COMPARISON: None TECHNIQUE: Ultrasound of the pelvis is performed using both transabdominal and transvaginal transducers along with Doppler. Patient refused transvaginal ultrasound exam. FINDINGS: UTERUS: The uterus is anteverted, anteflexed and measures 12.0 cm in length, 5.8 cm in AP and 6.5 cm in transverse dimension. The double wall endometrial thickness is 0.3 mm. The uterus is smooth in contour and has normal myometrial echogenicity. There is a hypoechoic lesion in the posterior body of uterus measuring 1.9 x 1.1 x 1.7 cm. Previously it measured 2.4 x 2.2 x 2.1 cm. ADNEXA: Both ovaries are visualized. There is normal color flow to the adnexa. There is no ovarian torsion. There is no pelvic ascites or fluid collection. Right ovary measures 4.2 x 1.4 x 4.1 cm and volume 8.5 Left ovary measures 2.9 x 2.0 x 2.8 cm and volume 12.6 No free fluid in the cul-de-sac. US/US pelvic complete IMPRESSION: Small posterior uterine fibroid, minimally smaller. No new fibroid. Normal ovaries. No free fluid in cul-de-sac.
--- NOTE | ~2021-11-25 | US_ITS ---
EXAMINATION: US PELVIS CLINICAL INFORMATION: Pelvic pain and bleeding. COMPARISON: None TECHNIQUE: Ultrasound of the pelvis is performed using both transabdominal and transvaginal transducers along with Doppler. Patient refused transvaginal ultrasound exam. FINDINGS: UTERUS: The uterus is anteverted, anteflexed and measures 12.0 cm in length, 5.8 cm in AP and 6.5 cm in transverse dimension. The double wall endometrial thickness is 0.3 mm. The uterus is smooth in contour and has normal myometrial echogenicity. There is a hypoechoic lesion in the posterior body of uterus measuring 1.9 x 1.1 x 1.7 cm. Previously it measured 2.4 x 2.2 x 2.1 cm. ADNEXA: Both ovaries are visualized. There is normal color flow to the adnexa. There is no ovarian torsion. There is no pelvic ascites or fluid collection. Right ovary measures 4.2 x 1.4 x 4.1 cm and volume 8.5 Left ovary measures 2.9 x 2.0 x 2.8 cm and volume 12.6 No free fluid in the cul-de-sac. US/US pelvic ovarian doppler IMPRESSION: Small posterior uterine fibroid, minimally smaller. No new fibroid. Normal ovaries. No free fluid in cul-de-sac.
[2021-11-25 09:32] VITALS: BP 127/78; PULSE 74; RESP 16; TEMP 35.9; O2SAT 98; BMI 29.9
[2021-11-25 10:02] LABS: Appearance Urine HAZY; Color Urine YELLOW; Glucose Urine UA NEG (NEG); Leukocyte Esterase Urine TRACE (NEG); Nitrite Urine NEG (NEG); Specific Gravity - Urine >= 1.030 (1.005-1.025); UACC Culture Trigger YES; Urine Blood 3+ (NEG); Urine Ketones 5 MG/DL (NEG); Urine Protein 1+ MG/DL (NEG-TRACE)
[2021-11-25 10:04] LABS: UPreg QC Valid YES; Urine Pregnancy NEGATIVE (NEGATIVE)
[2021-11-25 10:23] LABS: Bacteria Urine 1+ /LPF; Mucus Urine 1+ /LPF; RBC Urine 50-75 /HPF (0); Squamous Epithelial Cell Urine 2+ /LPF
[2021-11-25 14:28] LABS: MANUAL DIFF FLAG NO
[2021-11-25 14:35] LABS: Basophils Percent Auto 0.4 % (0-2); Eosinophils Absolute Auto 0.2 X10*3/uL (0.0-0.4); Eosinophils Percent Auto 2.9 % (0-4); Hematocrit 39.5 % (37.0-47.0); Hemoglobin 13.6 g/dl (12.0-16.0); Imm Gran Abs Auto 0.02 X10*3/uL (0.00-0.03); Imm Gran Pct Auto 0.3 % (0.0-0.4); Lymphocytes Percent Auto 28.7 % (20-40); Mean Corpuscular HGB Conc 34.4 g/dl (31.0-35.0); Mean Corpuscular Hemoglobin 32.6 pg (27.0-33.0); Mean Corpuscular Volume 94.7 fL (80.0-98.0); Mean Platelet Volume 12.3 fL (9.4-12.3); Monocytes Absolute Auto 0.6 X10*3/uL (0.1-1.2); Monocytes Percent Auto 8.1 % (2-11); Neutrophils Absolute Auto 4.1 x10*3/uL (2.0-8.3); Neutrophils Percent Auto 59.6 % (45-73); Platelet Count 172 X10*3/uL (160-400); Red Blood Count 4.17 X10*6/uL (4.20-5.50); Red Cell Distribution Width 11.4 % (11.0-16.0); White Blood Count 6.9 X10*3/uL (4.8-10.8)
[2021-11-25 14:53] LABS: Anion Gap 9 (12-20); Blood Urea Nitrogen 10 mg/dL (9-16); Calcium 9.6 mg/dL (8.4-10.2); Carbon Dioxide 31 mmol/L (22-29); Chloride 106 mmol/L (96-108); Creatinine Clr Calc Pharmacy 89.9; Estimated Glomerular Filt Rate > 60; Glucose Random 93 mg/dL (60-115); Potassium 4.9 mmol/L (3.3-5.1); Sodium 141 mmol/L (135-145)
[2021-11-25 15:05] LABS: IDNOW Serial# 08D9AD1C
[2021-11-25 15:06] LABS: COVID-19 Test Negative (Negative)
--- NOTE | 2021-11-25 15:48 | ED.FEMALEGU ---
HPI - Female Genitourinary General Chief complaint: Vaginal Bleeding Stated complaint: vaginal bleeding Time Seen by Provider: 11/25/21 13:07 History of Present Illness HPI Narrative: Patient complains of prolonged bleeding since last menstruation with crampy pain mild but frequent, no dizziness or weakness, it is been going on for 11 days and most days it is 2 or 3 pads and some clots when she urinates Related Data Previous Rx's Medication Instructions Recorded desogestrel 0.15 mg-ethinyl 1 tab PO DAILY #28 tab 03/29/21 estradiol 0.03 mg tablet (Apri) ibuprofen 600 mg tablet 600 mg PO Q8H PRN #20 tab 04/30/21 ferrous sulfate 325 mg (65 mg 325 mg PO DAILY #30 tab 08/23/21 iron) tablet,delayed release albuterol sulfate 90 mcg/actuation 1 puff PO QID PRN #8.5 g 09/10/21 aerosol inhaler budesonide-formoterol HFA 80 2 puff INHALATION BID 30 Days 09/10/21 mcg-4.5 mcg/actuation aerosol #10.2 g inhaler (Symbicort) cetirizine 10 mg capsule 10 mg PO DAILY PRN 90 Days #90 cap 09/10/21 omeprazole 20 mg capsule,delayed 20 mg PO .qhs 90 Days #90 cap 09/10/21 release fluticasone 232 mcg-salmeterol 14 1 inh INHALATION BID 30 Days #1 ea 09/14/21 mcg/actuation breath activated powdr (AirDuo RespiClick) nitrofurantoin 100 mg PO Q12H 5 Days #10 cap 11/25/21 monohydrate/macrocrystals 100 mg capsule (Macrobid) Allergies Allergy/AdvReac Type Severity Reaction Status Date / Time morphine [Morphine] Allergy Intermediate VOMITING, Verified 09/10/21 15:24 N/V Penicillins Allergy Unknown Rash Verified 09/10/21 15:24 Review of Systems Review of Systems: Positive for vaginal bleeding and crampy pelvic pain Negatives no fever no chills no dizziness no weakness no fainting no feeling faint no headache no neck pain no chest pain no shortness of breath no abdominal pain no nausea vomiting or diarrhea no dysuria no frequency no discharge no skin rashes no bleeding from any other site Yes all other systems are reviewed and are negative PMFSH Past Medical History Source: nursing notes reviewed Medical History Asthma, moderate Chronic GERD Dysfunctional uterine bleeding Iron deficiency anemia Neck pain on left side Paresthesia of hand Surgical History H/O tubal ligation History of carpal tunnel surgery of right wrist Family History Family History Father No problems noted. Mother Breast cancer Diabetes mellitus Brother No problems noted. Brother No problems noted. Son No problems noted. Daughter No problems noted. Social History Social History Housing: House Alcohol intake: never Patient Tobacco Use Status: Former Tobacco user (12 years ) Tobacco use type: Cigarette Years Smoked: 20 years Advance Directives: No Advance Directives Information Provided: No Patient : No Current occupational status: employed Sexual orientation: Straight/Heterosexual Physical Exam Vital Signs: Vital Signs: Last Vital Signs Temp 96.6 F L 11/25/21 09:32 Pulse 74 11/25/21 09:32 Resp 16 11/25/21 09:32 BP 127/78 11/25/21 09:32 Pulse Ox 98 11/25/21 09:32 BMI result Body Mass Index 29.9 General appearance is no acute distress The pupils are anicteric Mucous membranes are moist The neck is supple Chest is clear to auscultation bilateral Abdomen is soft nontender Extremities is full range of motion x4 Pelvic exam was deferred as she has fastener sewing machine operator appointment soon Extremities full range of motion x4 The back no CVA tenderness Skin no rashes Course Course Course Narrative: Pelvic ultrasound showed a fibroid but no evidence of a malignant mass, no evidence of torsion CBC did not show any acute changes or evidence of acute anemia UA did show a number of white cells and patient is treated with Macrobid antibiotic was negative and well-appearing patient tolerating p.o. comfortable throughout visit is discharged to follow next week with her talent acquisition director Pelvic was deferred as patient says she is sexually active with only 1 partner for many years and could follow closely with talent acquisition director for pelvic exam in the clinic MDM - Female Genitourinary Lab Data Attestation: I reviewed the patient's lab results. Result diagrams: 11/25/21 14:19 11/25/21 14:19 Labs: Lab Results 11/25/21 11/25/21 11/25/21 Range/Units 09:46 09:46 14:19 WBC 6.9 (4.8-10.8) X10*3/uL RBC 4.17 L (4.20-5.50) X10*6/uL Hgb 13.6 (12.0-16.0) g/dl Hct 39.5 (37.0-47.0) % MCV 94.7 (80.0-98.0) fL MCH 32.6 (27.0-33.0) pg MCHC 34.4 (31.0-35.0) g/dl RDW 11.4 (11.0-16.0) % Plt Count 172 (160-400) X10*3/uL MPV 12.3 (9.4-12.3) fL Immature Gran % (Auto) 0.3 (0.0-0.4) % Neut % (Auto) 59.6 (45-73) % Lymph % (Auto) 28.7 (20-40) % [place] % (Auto) 8.1 (2-11) % Eos % (Auto) 2.9 (0-4) % Baso % (Auto) 0.4 (0-2) % Lymph # (Auto) 2.0 (1.2-4.9) X10*3/uL [place] # (Auto) 0.6 (0.1-1.2) X10*3/uL Eos # (Auto) 0.2 (0.0-0.4) X10*3/uL Baso # (Auto) 0.0 (0.0-0.2) X10*3/uL Abs Immat Gran (auto) 0.02 (0.00-0.03) X10*3/uL Absolute Neuts (auto) 4.1 (2.0-8.3) x10*3/uL Absolute Nucleated RBC 0.000 (0.0-0.012) X10*3/uL Nucleated RBC % (auto) 0.0 (0.0-0.2) /100WBC Sodium (135-145) mmol/L Potassium (3.3-5.1) mmol/L Chloride (96-108) mmol/L Carbon Dioxide (22-29) mmol/L Anion Gap (12-20) BUN (9-16) mg/dL Creatinine (0.5-1.4) mg/dL Estim Creat Clear Calc Estimated GFR Random Glucose (60-115) mg/dL Calcium (8.4-10.2) mg/dL Urine Color YELLOW Urine Appearance HAZY Urine pH 6.0 (5.0-8.0) Ur Specific [place] >= 1.030 H (1.005-1.025) Urine Protein 1+ H (NEG-TRACE) MG/DL Urine Glucose (UA) NEG (NEG) MG/DL Urine Ketones 5 (NEG) MG/DL Urine Blood 3+ H (NEG) Urine Nitrite NEG (NEG) Ur Leukocyte Esterase TRACE H (NEG) Urine RBC 50-75 H (0) /HPF Urine WBC 1-4 (0-4) /HPF Ur Squamous Epith Cells 2+ /LPF Urine Bacteria 1+ /LPF Urine Mucus 1+ /LPF Urine Test NEGATIVE (NEGATIVE) COVID-19 ([facility]) (Negative) COVID-19 Clin Com 11/25/21 11/25/21 Range/Units 14:19 14:19 WBC (4.8-10.8) X10*3/uL RBC (4.20-5.50) X10*6/uL Hgb (12.0-16.0) g/dl Hct (37.0-47.0) % MCV (80.0-98.0) fL MCH (27.0-33.0) pg MCHC (31.0-35.0) g/dl RDW (11.0-16.0) % Plt Count (160-400) X10*3/uL MPV (9.4-12.3) fL Immature Gran % (Auto) (0.0-0.4) % Neut % (Auto) (45-73) % Lymph % (Auto) (20-40) % [place] % (Auto) (2-11) % Eos % (Auto) (0-4) % Baso % (Auto) (0-2) % Lymph # (Auto) (1.2-4.9) X10*3/uL [place] # (Auto) (0.1-1.2) X10*3/uL Eos # (Auto) (0.0-0.4) X10*3/uL Baso # (Auto) (0.0-0.2) X10*3/uL Abs Immat Gran (auto) (0.00-0.03) X10*3/uL Absolute Neuts (auto) (2.0-8.3) x10*3/uL Absolute Nucleated RBC (0.0-0.012) X10*3/uL Nucleated RBC % (auto) (0.0-0.2) /100WBC Sodium 141 (135-145) mmol/L Potassium 4.9 (3.3-5.1) mmol/L Chloride 106 (96-108) mmol/L Carbon Dioxide 31 H (22-29) mmol/L Anion Gap 9 L (12-20) BUN 10 (9-16) mg/dL Creatinine 0.86 (0.5-1.4) mg/dL Estim Creat Clear Calc 89.9 Estimated GFR > 60 Random Glucose 93 (60-115) mg/dL Calcium 9.6 (8.4-10.2) mg/dL Urine Color Urine Appearance Urine pH (5.0-8.0) Ur Specific [place] (1.005-1.025) Urine Protein (NEG-TRACE) MG/DL Urine Glucose (UA) (NEG) MG/DL Urine Ketones (NEG) MG/DL Urine Blood (NEG) Urine Nitrite (NEG) Ur Leukocyte Esterase (NEG) Urine RBC (0) /HPF Urine WBC (0-4) /HPF Ur Squamous Epith Cells /LPF Urine Bacteria /LPF Urine Mucus /LPF Urine Test (NEGATIVE) COVID-19 ([facility]) Negative (Negative) COVID-19 Clin Com See Note Discharge Plan Discharge Clinical Impression: Abnormal vaginal bleeding Patient Disposition: Home, Self-Care Additional Instructions: Our evaluation today did not show any dangerous condition, but did show likely urinary tract infection We will start antibiotic Macrobid You are not , you are not significantly anemic, your vital signs were fine Ultrasound did show a fibroid so follow with talent acquisition director for further evaluation The irregular bleeding should be evaluated by a talent acquisition director cause there are treatments that can control the bleeding Return to the ER any time for increasing pain, vomiting, fever, feeling dizzy or weak, uncontrolled heavy bleeding any worse condition or any concerns Prescriptions: New nitrofurantoin monohyd/m-cryst [Macrobid] 100 mg capsule 100 mg PO Q12H 5 Days Qty: 10 RF: 0 No Action ferrous sulfate 325 mg (65 mg iron) tablet,delayed release (DR/EC) 325 mg PO DAILY Qty: 30 RF: 2 fluticasone propion-salmeterol [AirDuo RespiClick] 232-14 mcg/actuation aerosol powdr breath activated 1 inh inhalation BID 30 Days Qty: 1 RF: 4 ibuprofen 600 mg tablet 600 mg PO Q8H PRN (Reason: pain) Qty: 20 RF: 0 omeprazole 20 mg capsule,delayed release(DR/EC) 20 mg PO .qhs 90 Days Qty: 90 RF: 0 cetirizine 10 mg capsule 10 mg PO DAILY PRN (Reason: allergy symptoms) 90 Days Qty: 90 RF: 3 budesonide-formoterol [Symbicort] 80-4.5 mcg/actuation HFA aerosol inhaler 2 puff inhalation BID 30 Days Qty: 10.2 RF: 5 albuterol sulfate 90 mcg/actuation HFA aerosol inhaler 1 puff PO QID PRN (Reason: for dyspnea) Qty: 8.5 RF: 3 desogestrel-ethinyl estradiol [Apri] 0.15-0.03 mg tablet 1 tab PO DAILY Qty: 28 RF: 7 Stand Alone Forms: Work/School Release Interventions: ED Discharge Assessment Last Done: 11/25/21 16:27 Discharge Date/Time: 11/25/21 16:28
== END 2021-11-25 16:28 | disposition home or self-care (01) ==
PROVIDERS: Physician Assistant Medical; Emergency Provider Emergency Medicine; PCP Internal Medicine
DX: N93.8 Other specified abnormal uterine and vaginal bleeding (principal); Z20.822 Contact with and (suspected) exposure to COVID-19
CPT/HCPCS: 36415; 76856; 80048; 81001; 81003; 81025; 85025; 87086; 87635; 93975; 99282; 99284

== ENCOUNTER 2021-12-06 07:56 | Outpatient (REF) | payer OTHER, MEDICAID, SELFPAY ==
[2021-12-06 14:09] LABS: CT PCR NOT DETECTED (Not Detect.); NG PCR NOT DETECTED (Not Detect.)
[2021-12-07 09:16] LABS: BV Int Neg Control Negative (Negative); BV Int Pos Control Positive (Positive)
== END 2021-12-06 07:57 | disposition home or self-care (01) ==
LOC: HO.LAB 07:56
PROVIDERS: PCP Internal Medicine; Visit Provider Advanced Practice Midwife
DX: Z30.41 Encounter for surveillance of contraceptive pills (principal); Z20.2 Contact with and (suspected) exposure to infections with a predominantly sexual mode of transmission; N92.1 Excessive and frequent menstruation with irregular cycle; R82.90 Unspecified abnormal findings in urine
CPT/HCPCS: 81003; 87480; 87491; 87510; 87591; 87660

== ENCOUNTER 2022-10-02 08:18 | Emergency (ER) | payer OTHER, MEDICAID, SELFPAY ==
[2022-10-02 08:24] VITALS: BP 120/87; PULSE 87; RESP 16; TEMP 35.6; O2SAT 95; BMI 28.3
[2022-10-02 08:45] VITALS: BP 115/66; PULSE 75; RESP 16; O2SAT 96
--- NOTE | 2022-10-02 10:34 | ED_ITS ---
HPI - Extremity Problem General Chief complaint: Extremity Problem Stated complaint: Ingrown toenail Time Seen by Provider: 10/02/22 08:23 History of Present Illness HPI Narrative: 42-year-old female who presents emergency department for evaluation of right great toe pain. Patient states she has been having pain in the right great toe for 2 days. She states that is constant throbbing pain which is 8/10 at its worst. She has noted redness and swelling over the lateral aspect of the toenail. She states she has had ingrown toenails in the past. The patient denied fever, chills, fatigue or weakness. Related Data Previous Rx's Medication Instructions Recorded ibuprofen 600 mg tablet 600 mg PO Q8H PRN pain #20 tabs 04/30/21 cetirizine 10 mg capsule 10 mg PO DAILY PRN allergy 09/10/21 symptoms 90 days #90 caps omeprazole 20 mg capsule,delayed 20 mg PO .qhs 90 days #90 caps 09/10/21 release ferrous sulfate 325 mg (65 mg 325 mg PO DAILY #30 tabs 12/02/21 iron) tablet,delayed release albuterol sulfate 90 mcg/actuation 1 puff PO QID PRN for dyspnea #8.5 09/16/22 aerosol inhaler grams budesonide-formoterol HFA 80 2 puff inhalation BID 30 days 09/16/22 mcg-4.5 mcg/actuation aerosol #10.2 grams inhaler (Symbicort) cephalexin 500 mg capsule 500 mg PO QID 5 days #20 caps 10/02/22 Allergies Allergy/AdvReac Type Severity Reaction Status Date / Time morphine [Morphine] Allergy Intermediate VOMITING, Verified 03/21/22 09:46 N/V Penicillins Allergy Unknown Rash Verified 03/21/22 09:46 Review of Systems Review of Systems: Yes all other systems are reviewed and are negative [facility] Past Medical History [facility] Narrative: Social history: 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 She denies tobacco and alcohol use. She states she occasionally takes edible marijuana at night for sleep. Medical History Asthma, moderate Chronic GERD Dysfunctional uterine bleeding Iron deficiency anemia Neck pain on left side Paresthesia of hand Surgical History H/O tubal ligation History of carpal tunnel surgery of right wrist Family History Family History Father Colon cancer Mother Diabetes mellitus Brother No problems noted. Brother No problems noted. Son No problems noted. Daughter No problems noted. Social History Social History Housing: House Alcohol intake: never Patient Tobacco Use Status: Former Tobacco user (12 years ) Tobacco use type: Cigarette Years Smoked: 20 years Smoked in Last 30 Days: No Use of substances other than those prescribed or required for medical reasons: No Advance Directives: No Advance Directives Information Provided: No Current occupational status: employed Sexual orientation: Straight/Heterosexual Physical Exam Vital Signs: Vital Signs: Last Vital Signs Temp 96.1 F L 10/02/22 08:24 Pulse 75 10/02/22 08:45 Resp 16 10/02/22 08:45 BP 115/66 10/02/22 08:45 Pulse Ox 96 10/02/22 08:45 O2 Del Method 10/02/22 08:45 BMI result Body Mass Index 28.3 Const: Other: Well-appearing female patient, very pleasant and cooperative, answers all questions appropriately, in no distress Extrem: Other: The patient's right great toe revealed erythema and flocculence over the lateral aspect of the toenail, this area is very tender to palpation is consistent with an ingrown toenail. There is erythema over the tender area as well which is warm to the touch. Course Course Course Narrative: 42-year-old female who presents emergency department for evaluation of pain, swelling and redness in her right great toe. Physical examination is consistent with an infected ingrown toenail over the lateral aspect of the right great toe. The patient's toe was anesthetized using a digital block with 1% lidocaine, the ingrown toenail was elevated and then resected and removed. There is a small amount of purulent material noted as well. The wound was covered with bacitracin and a gauze dressing. Patient was started on Keflex 500 mg 4 times a day for 5 days. She was advised to take Tylenol ibuprofen for pain. She was given printed and verbal instructions and discharged home. She was given a work note as well. Procedures Procedure Narrative Procedure Narrative: Infected ingrown toenail, partial toenail resection/removal. I did discuss the procedure with the patient and she gave me informed verbal consent. The patient's right great toe was prepped with Betadine. The toe is anesthetized using 1% lidocaine, 6 cc was used to obtain a digital block. After the toe was anesthetized I was able to use hemostats and expose the ingrown toenail and this portion was then resected down to its base with removal of the base over the resected part of the toenail as well. A small amount appearance material was expressed from the open area. The patient tolerated the procedure well. The nurse applied bacitracin and a gauze dressing to the toe. Discharge Plan Discharge Clinical Impression: Ingrowing nail, right great toe Patient Disposition: Home, Self-Care Additional Instructions: You had an ingrown toenail that was infected. We removed the ingrown toenail and there was a small amount of pus that drained out of the wound. Apply bacitracin or Neosporin twice a day for 1 week. Keep the wound covered with a Band-Aid. Take Keflex (cephalexin) 500 mg pills, 1 pill 3 times a day for 5 days. Take ibuprofen 200 mg pills, 3 pills every 6 hours as needed for pain. Take Tylenol (acetaminophen) 500 mg pills, 2 pills every 4 to 6 hours as needed for pain. Follow-up with your doctor in 2 days. Please return to the emergency department if your symptoms get worse or if you develop any symptoms that are concerning to you. Please see work note Prescriptions: New cephalexin 500 mg capsule 500 mg PO QID 5 Days Qty: 20 0RF No Action ferrous sulfate 325 mg (65 mg iron) tablet,delayed release (DR/EC) 325 mg PO DAILY Qty: 30 2RF budesonide-formoterol [Symbicort] 80-4.5 mcg/actuation HFA aerosol inhaler 2 puff inhalation BID 30 Days Qty: 10.2 0RF albuterol sulfate 90 mcg/actuation HFA aerosol inhaler 1 puff PO QID PRN (Reason: for dyspnea) Qty: 8.5 0RF ibuprofen 600 mg tablet 600 mg PO Q8H PRN (Reason: pain) Qty: 20 0RF omeprazole 20 mg capsule,delayed release(DR/EC) 20 mg PO .qhs 90 Days Qty: 90 0RF cetirizine 10 mg capsule 10 mg PO DAILY PRN (Reason: allergy symptoms) 90 Days Qty: 90 3RF Stand Alone Forms: Work/School Release
--- NOTE | 2022-10-02 10:41 | PC.NURSE ---
pulled ingrown nail. pt tolerated the procedure well. waiting for disposition.
== END 2022-10-02 10:45 | disposition home or self-care (01) ==
PROVIDERS: Emergency Provider Emergency Medicine Emergency Medical Services; PCP Internal Medicine
DX: L60.0 Ingrowing nail (principal); R60.0 Localized edema; Z79.899 Other long term (current) drug therapy
CPT/HCPCS: 11750; 99284

== ENCOUNTER 2022-11-02 08:27 | Emergency (ER) | payer OTHER, SELFPAY ==
[2022-11-02 08:34] VITALS: BP 136/66; PULSE 92; RESP 18; TEMP 36.9; O2SAT 99; BMI 28.3
--- NOTE | 2022-11-02 09:38 | ED_ITS ---
HPI - Dental/Oral General Chief complaint: Dental/Oral Stated complaint: Dental Infection S/P Root Canal 10/31/22 Time Seen by Provider: 11/02/22 09:18 Source: patient Mode of arrival: ambulatory Limitations: no limitations History of Present Illness HPI Narrative: 42-year-old female who was recently seen by the oral surgeon and had a root canal on 10/31/2022 presenting to the ED with complaints of 2 days of dental pain /left upper jaw swelling now the pain going to her nose/jaw. she reports that she called her oral surgeon yesterday or she went there and they were supposed to prescribe her pain meds and antibiotics although they never did. She woke up this morning with worsening pain therefore she came here for further evaluation treatment. I explained to her why did she not call her oral surgeon she told me that the open up at 09:00. I told her that she is now 930 so she could call them I will only give her 3 pills and she can call them for the rest of her pain medications. MD Complaint: tooth pain Teeth map: 1. Onset (ago): day(s) (2) Duration: constant Severity: moderate Relieving factors: nothing Exacerbating factors: nothing Context: other ( recent root canal on 12) Treatment prior to arrival: none Related Data Previous Rx's Medication Instructions Recorded ibuprofen 600 mg tablet 600 mg PO Q8H PRN pain #20 tabs 04/30/21 cetirizine 10 mg capsule 10 mg PO DAILY PRN allergy 09/10/21 symptoms 90 days #90 caps omeprazole 20 mg capsule,delayed 20 mg PO .qhs 90 days #90 caps 09/10/21 release ferrous sulfate 325 mg (65 mg 325 mg PO DAILY #30 tabs 12/02/21 iron) tablet,delayed release albuterol sulfate 90 mcg/actuation 1 puff PO QID PRN for dyspnea #8.5 09/16/22 aerosol inhaler grams budesonide-formoterol HFA 80 2 puff inhalation BID 30 days 09/16/22 mcg-4.5 mcg/actuation aerosol #10.2 grams inhaler (Symbicort) cephalexin 500 mg capsule 500 mg PO QID 5 days #20 caps 10/02/22 clindamycin HCl 300 mg capsule 300 mg PO TID dental infection 10 12/21/22 days #30 caps ibuprofen 800 mg tablet 800 mg PO Q8H PRN pain #14 tabs 11/02/22 oxycodone 5 mg tablet 5 mg PO Q6H PRN pain #3 tabs 11/02/22 Allergies Allergy/AdvReac Type Severity Reaction Status Date / Time morphine [Morphine] Allergy Intermediate VOMITING, Verified 03/21/22 09:46 N/V Penicillins Allergy Unknown Rash Verified 03/21/22 09:46 Review of Systems Review of Systems: Constitutional : No Fever, No Chills, No changes in PO intake, No difficulty speaking, no recent dental procedure, no heat or cold intolerance while eating, no recent face trauma, ENT/Mouth : + Dental pain, No Sore throat, No Jaw pain, No throat swelling, No swallowing difficulty, no change in voice, No facial swelling, no drooling, no trismus, no bleeding, no lacerations, no tongue swelling, gum swelling, Eyes: No Eye Pain, No periorbital Swelling Cardiovascular : No Chest Pain, No SOB Respiratory : No Cough, No Sputum, No Wheezing, No Smoke Exposure, No Dyspnea Gastrointestinal : No Nausea, No Vomiting, No Diarrhea Genitourinary : No Dysuria Musculoskeletal : No Myalgias Skin : No rash, no facial swelling or redness, Neuro : No Weakness, No Numbness, No Headache Yes all other systems are reviewed and are negative [facility] Past Medical History Attestation statement: The following information was validated with the patient. Source: old records reviewed and nursing notes reviewed Medical History Asthma, moderate Chronic GERD Dysfunctional uterine bleeding Iron deficiency anemia Neck pain on left side Paresthesia of hand Surgical History H/O tubal ligation History of carpal tunnel surgery of right wrist Family History Family History Father Colon cancer Mother Diabetes mellitus Brother No problems noted. Brother No problems noted. Son No problems noted. Daughter No problems noted. Social History Social History Housing: House Alcohol intake: never Patient Tobacco Use Status: Former Tobacco user (12 years ) Tobacco use type: Cigarette Years Smoked: 20 years Advance Directives: No Advance Directives Information Provided: No Current occupational status: employed Sexual orientation: Straight/Heterosexual Physical Exam Vital Signs: Vital Signs: Last Vital Signs Temp 98.4 F 11/02/22 08:34 Pulse 92 11/02/22 08:34 Resp 18 11/02/22 08:34 BP 136/66 11/02/22 08:34 Pulse Ox 99 11/02/22 08:34 O2 Del Method 11/02/22 08:34 BMI result Body Mass Index 28.3 vital signs have been reviewed as normal and appeared to be correct. Blood pressure normal. Heart rate normal. Respiration rate normal. Temperature normal. Oxygen saturation normal. Appearance: Alert. Oriented X3. No acute distress. Head: Normal external exam. Normocephalic. Atraumatic. Eyes: PERRLA. EOMI. Conjunctiva and sclera normal. Eyelids normal. ENT: EAC normal. TM's Normal. Pharynx normal. Uvula midline. Moist mucous membranes. No trismus noted. No drooling noted. No muffled voice noted. Dentition: Patient with poor dentition throughout with multiple old fractured teeth with multiple dental caries. Gingival within normal limits. No fluctuance. Not consistent with peritonsillar abscess. Not consistent with dental abscess. No salivary duct obstruction noted. Neck: Normal inspection. Neck supple. FROM. No adenopathy. Thyroid Normal. No me ningeal signs. No neck mass noted. Trachea midline. CVS: Normal heart rate and rhythm. Heart sound normal. No murmurs noted. Pulses normal throughout. Respiratory: No respiratory distress. Painless inspiration. Breath sounds normal. No wheezes/rales/rhonchi noted. Chest nontender. No accessory muscle usage noted or decreased air movement noted. Back: Full range of motion noted. Skin: Skin warm and dry. Normal skin color. Normal skin turgor. No rashes/lesions/lacerations noted. Extremities:Extremities exhibit normal range of motion. Extremities nontender. Neuro: Oriented X 3. No motor deficit. No sensory deficit. Reflexes normal. Course Course Course Narrative: patient status post root canal x2 days. Did not call her oral surgeon yesterday she called yesterday they were supposed to prescribe her medications and they did not. I explained her that she needs to call them today for the rest the pain meds I will give her 3 pain meds and ibuprofen is and antibiotics and instructions to follow-up with her PCP/ oral surgeon and to return if any new or worsening symptoms. Patient understands agrees with this plan. Discharge Plan Discharge Clinical Impression: Pain, dental Patient Disposition: Home, Self-Care Instructions: Toothache (ED) Prescriptions: New ibuprofen 800 mg tablet 800 mg PO Q8H PRN (Reason: pain) Qty: 14 0RF oxycodone 5 mg tablet 5 mg PO Q6H PRN (Reason: pain) Qty: 3 0RF Rx Instructions: Partial Fill upon patient request. clindamycin HCl 300 mg capsule 300 mg PO TID 10 Days Qty: 30 0RF No Action ferrous sulfate 325 mg (65 mg iron) tablet,delayed release (DR/EC) 325 mg PO DAILY Qty: 30 2RF budesonide-formoterol [Symbicort] 80-4.5 mcg/actuation HFA aerosol inhaler 2 puff inhalation BID 30 Days Qty: 10.2 0RF albuterol sulfate 90 mcg/actuation HFA aerosol inhaler 1 puff PO QID PRN (Reason: for dyspnea) Qty: 8.5 0RF ibuprofen 600 mg tablet 600 mg PO Q8H PRN (Reason: pain) Qty: 20 0RF cephalexin 500 mg capsule 500 mg PO QID 5 Days Qty: 20 0RF omeprazole 20 mg capsule,delayed release(DR/EC) 20 mg PO .qhs 90 Days Qty: 90 0RF cetirizine 10 mg capsule 10 mg PO DAILY PRN (Reason: allergy symptoms) 90 Days Qty: 90 3RF Referrals: Maria R Turner MD [Primary Care Provider] - 11/02/22 ( Follow-up with your dentist today)
== END 2022-11-02 10:21 | disposition home or self-care (01) ==
PROVIDERS: Emergency Provider Student in an Organized Health Care Education/Training Program; PCP Internal Medicine
DX: K08.89 Other specified disorders of teeth and supporting structures (principal); Z87.891 Personal history of nicotine dependence
CPT/HCPCS: 99283

== ENCOUNTER 2023-01-01 13:35 | Emergency (ER) | payer OTHER, SELFPAY ==
--- NOTE | 2023-01-01 13:39 | ED_ITS ---
HPI - Female Genitourinary General Chief complaint: Urogenital-Female Stated complaint: ?uti Related Data Previous Rx's Medication Instructions Recorded ibuprofen 600 mg tablet 600 mg PO Q8H PRN pain #20 tabs 04/30/21 cetirizine 10 mg capsule 10 mg PO DAILY PRN allergy 09/10/21 symptoms 90 days #90 caps omeprazole 20 mg capsule,delayed 20 mg PO .qhs 90 days #90 caps 09/10/21 release ferrous sulfate 325 mg (65 mg 325 mg PO DAILY #30 tabs 12/02/21 iron) tablet,delayed release budesonide-formoterol HFA 80 2 puff inhalation BID 30 days 09/16/22 mcg-4.5 mcg/actuation aerosol #10.2 grams inhaler (Symbicort) cephalexin 500 mg capsule 500 mg PO QID 5 days #20 caps 10/02/22 clindamycin HCl 300 mg capsule 300 mg PO TID dental infection 10 11/02/22 days #30 caps ibuprofen 800 mg tablet 800 mg PO Q8H PRN pain #14 tabs 11/02/22 oxycodone 5 mg tablet 5 mg PO Q6H PRN pain #3 tabs 11/02/22 albuterol sulfate 90 mcg/actuation 1 puff PO QID PRN for dyspnea #8.5 11/08/22 aerosol inhaler grams Allergies Allergy/AdvReac Type Severity Reaction Status Date / Time morphine [Morphine] Allergy Intermediate VOMITING, Verified 03/21/22 09:46 N/V Penicillins Allergy Unknown Rash Verified 03/21/22 09:46 [facility] Past Medical History Medical History Asthma, moderate Chronic GERD Dysfunctional uterine bleeding Iron deficiency anemia Neck pain on left side Paresthesia of hand Surgical History H/O tubal ligation History of carpal tunnel surgery of right wrist Family History Family History Father Colon cancer Mother Diabetes mellitus Brother No problems noted. Brother No problems noted. Son No problems noted. Daughter No problems noted. Social History Social History Housing: House Alcohol intake: never Patient Tobacco Use Status: Former Tobacco user (12 years ) Tobacco use type: Cigarette Years Smoked: 20 years Current occupational status: employed Sexual orientation: Straight/Heterosexual Physical Exam Vital Signs: Vital Signs: Last Vital Signs Temp 97.9 F 01/01/23 13:41 Pulse 76 01/01/23 13:41 Resp 18 01/01/23 13:41 BP 112/57 L 01/01/23 13:41 Pulse Ox 98 01/01/23 13:41 O2 Del Method 01/01/23 13:41 BMI result Body Mass Index 28.3 Course Course Course Narrative: RME - 42 yo female with history of asthma, dysfunctional uterine bleeding, anemia who presents to the ER for evaluation of pain with urination and suprapubic pain that started yesterday. No fever, chills, N/V/D, vaginal discharge or vaginal bleeding. Will get UA for further evaluation. Medical Decision Making Lab Data Labs: Lab Results 01/01/23 Range/Units 13:57 Urine Color Yellow Urine Appearance Clear Urine pH 5.5 (5.0-9.0) Ur Specific [place] 1.020 (1.005-1.025) Urine Protein Negative (Neg-Trace) mg/dL Urine Glucose (UA) Negative (Negative) mg/dL Urine Ketones Negative (Negative) mg/dL Urine Blood Negative (Negative) Urine Nitrite Negative (Negative) Ur Leukocyte Esterase Negative (Negative) Discharge Plan Discharge Clinical Impression: Dysuria Patient Disposition: Elopement Prescriptions: No Action ferrous sulfate 325 mg (65 mg iron) tablet,delayed release (DR/EC) 325 mg PO DAILY Qty: 30 2RF budesonide-formoterol [Symbicort] 80-4.5 mcg/actuation HFA aerosol inhaler 2 puff inhalation BID 30 Days Qty: 10.2 0RF albuterol sulfate 90 mcg/actuation HFA aerosol inhaler 1 puff PO QID PRN (Reason: for dyspnea) Qty: 8.5 0RF ibuprofen 600 mg tablet 600 mg PO Q8H PRN (Reason: pain) Qty: 20 0RF cephalexin 500 mg capsule 500 mg PO QID 5 Days Qty: 20 0RF ibuprofen 800 mg tablet 800 mg PO Q8H PRN (Reason: pain) Qty: 14 0RF oxycodone 5 mg tablet 5 mg PO Q6H PRN (Reason: pain) Qty: 3 0RF Rx Instructions: Partial Fill upon patient request. clindamycin HCl 300 mg capsule 300 mg PO TID 10 Days Qty: 30 0RF omeprazole 20 mg capsule,delayed release(DR/EC) 20 mg PO .qhs 90 Days Qty: 90 0RF cetirizine 10 mg capsule 10 mg PO DAILY PRN (Reason: allergy symptoms) 90 Days Qty: 90 3RF Interventions: LWBS Worksheet Last Done: 01/01/23 17:42 Discharge Date/Time: 01/01/23 17:43
[2023-01-01 13:41] VITALS: BP 112/57; PULSE 76; RESP 18; TEMP 36.6; O2SAT 98; BMI 28.3
[2023-01-01 14:05] LABS: Appearance Urine Clear; Color Urine Yellow; Glucose Urine UA Negative (Negative); Leukocyte Esterase Urine Negative (Negative); Nitrite Urine Negative (Negative); PH 5.5 (5.0-9.0); Urine Blood Negative (Negative); Urine Ketones Negative (Negative); Urine Protein Negative (Neg-Trace)
== END 2023-01-01 17:43 | disposition left against medical advice (07) ==
PROVIDERS: Physician Assistant; Emergency Provider Emergency Medicine; PCP Internal Medicine
DX: R30.0 Dysuria (principal); Z87.891 Personal history of nicotine dependence; Z79.899 Other long term (current) drug therapy
CPT/HCPCS: 81003; 99282

== ENCOUNTER 2023-02-06 05:23 | Emergency (ER) | payer OTHER, SELFPAY ==
--- NOTE | ~2023-02-06 | CT_ITS ---
EXAMINATION: CT ABDOMEN AND PELVIS WITH CONTRAST CLINICAL INFORMATION: Epigastric pain COMPARISON: None available. TECHNIQUE: Multidetector volumetric images were obtained from the superior aspect of the liver through the pubic symphysis following administration 85 mL of Omnipaque 350 intravenous contrast. Sagittal and coronal reformatted images were obtained on the technologist's workstation. Oral contrast: No This CT examination was performed using dose optimization techniques as appropriate, variously including the following: *Automated exposure control *Adjustment of mA and/or kV according to patient size (this includes techniques or standardized protocols for targeted exams where dose is matched to indication/reason for exam; i.e. extremities or head) *Use of iterative reconstruction technique DLP: 508 mGy-cm FINDINGS: LUNG BASES: The visualized lung bases are unremarkable. LIVER, GALLBLADDER, AND BILIARY TREE: The liver is normal in size, shape, and attenuation. No focal hepatic lesion or biliary ductal dilatation is present. The gallbladder is unremarkable with no evidence of radiopaque gallstones, gallbladder wall thickening, or obvious pericholecystic inflammatory changes. PANCREAS: There is focal fatty invagination of the pancreatic tail. The pancreatic parenchyma is otherwise unremarkable. SPLEEN: Unremarkable. ADRENAL GLANDS: Unremarkable. KIDNEYS AND URETERS: The kidneys are normal in size, shape, and attenuation. No hydronephrosis, hydroureter, or calculi seen. No perinephric stranding. BLADDER: Unremarkable. GASTROINTESTINAL TRACT: The stomach is unremarkable. Normal caliber small bowel. No obstruction. No colonic wall thickening or inflammatory change. Normal appendix. No free air or free fluid. ABDOMINAL WALL: No significant hernia is appreciated. LYMPH NODES: Normal. VASCULAR: Unremarkable. PELVIC VISCERA: Anteverted uterus. No adnexal mass. Dominant left ovarian follicle. OSSEOUS STRUCTURES: No acute or suspicious osseous abnormality. CT/CT abdomen pelvis w IV con IMPRESSION: No acute findings of the abdomen or pelvis. No inflammatory changes. Fleischner guidelines were followed.
[2023-02-06 05:38] VITALS: BP 109/76; PULSE 80; RESP 16; TEMP 36.7; O2SAT 98; BMI 28.3
[2023-02-06 05:56] LABS: MANUAL DIFF FLAG NO
[2023-02-06 05:57] LABS: Basophils Percent Auto 0.4 % (0-2); Eosinophils Absolute Auto 0.2 X10*3/uL (0.0-0.4); Eosinophils Percent Auto 3.8 % (0-4); Hemoglobin 11.4 g/dl (12.0-16.0); Imm Gran Abs Auto 0.02 X10*3/uL (0.00-0.03); Imm Gran Pct Auto 0.4 % (0.0-0.4); Lymphocytes Absolute Auto 1.9 X10*3/uL (1.2-4.9); Lymphocytes Percent Auto 40.2 % (20-40); Mean Corpuscular HGB Conc 33.5 g/dl (31.0-35.0); Mean Corpuscular Hemoglobin 29.9 pg (27.0-33.0); Mean Corpuscular Volume 89.2 fL (80.0-98.0); Mean Platelet Volume 12.2 fL (9.4-12.3); Monocytes Absolute Auto 0.5 X10*3/uL (0.1-1.2); Monocytes Percent Auto 10.7 % (2-11); Neutrophils Absolute Auto 2.1 x10*3/uL (2.0-8.3); Neutrophils Percent Auto 44.5 % (45-73); Platelet Count 167 X10*3/uL (160-400); Red Blood Count 3.81 X10*6/uL (4.20-5.50); White Blood Count 4.8 X10*3/uL (4.8-10.8)
--- NOTE | 2023-02-06 06:05 | PC.NURSE ---
20G IV access established R AC.
--- NOTE | 2023-02-06 06:06 | ECG_ITS ---
Test Reason : ABDOMINAL PAIN Blood Pressure : / mmHG Vent. Rate : 077 BPM Atrial Rate : 077 BPM P-R Int : 150 ms QRS Dur : 092 ms QT Int : 424 ms P-R-T Axes : 049 060 063 degrees QTc Int : 479 ms Artifact in tracing Normal sinus rhythm Normal ECG No significant changes when compared with the previous EKG of 14 jun 2005 Referred By: Deena Walden Electronically Signed By:VASU MARTIN
--- NOTE | 2023-02-06 06:15 | ED_ITS ---
HPI - Abdominal Pain General Chief Complaint: Abdominal Pain <Deena Walden MD - Last Filed: 02/06/23 06:34> Stated Complaint: stomach pain <Deena Walden MD - Last Filed: 02/06/23 06:34> Time Seen by Provider: 02/06/23 05:56 <Deena Walden MD - Last Filed: 02/06/23 06:34> History of Present Illness HPI narrative: Patient is a 42-year-old female with a history of borderline diabetes history of GERD presented today with having abdominal pain in the epigastric area burning since Monday. Patient took some Pepto-Bismol on Monday. Doubt a symptom persists. Now the stools black. Patient denies any nausea vomiting. Denies history of being on blood thinners. No fever no chills. No diaphoresis. Not related with food. Seems to be worse on lying down. No chest pain or shortness of breath <Deena Walden MD - Last Filed: 02/06/23 06:34> Related Data Home Medications: Previous Rx's Medication Instructions Recorded ibuprofen 600 mg tablet 600 mg PO Q8H PRN pain #20 tabs 04/30/21 cetirizine 10 mg capsule 10 mg PO DAILY PRN allergy 09/10/21 symptoms 90 days #90 caps omeprazole 20 mg capsule,delayed 20 mg PO .qhs 90 days #90 caps 09/10/21 release ferrous sulfate 325 mg (65 mg 325 mg PO DAILY #30 tabs 12/02/21 iron) tablet,delayed release budesonide-formoterol HFA 80 2 puff inhalation BID 30 days 09/16/22 mcg-4.5 mcg/actuation aerosol #10.2 grams inhaler (Symbicort) cephalexin 500 mg capsule 500 mg PO QID 5 days #20 caps 10/02/22 clindamycin HCl 300 mg capsule 300 mg PO TID dental infection 10 11/02/22 days #30 caps ibuprofen 800 mg tablet 800 mg PO Q8H PRN pain #14 tabs 11/02/22 oxycodone 5 mg tablet 5 mg PO Q6H PRN pain #3 tabs 11/02/22 albuterol sulfate 90 mcg/actuation 1 puff PO QID PRN for dyspnea #8.5 11/08/22 aerosol inhaler grams omeprazole 40 mg capsule,delayed 40 mg PO DAILY #30 caps 02/06/23 release <Deena Walden MD - Last Filed: 02/06/23 06:34> Allergies/Adverse Reactions: Allergies Allergy/AdvReac Type Severity Reaction Status Date / Time morphine [Morphine] Allergy Intermediate VOMITING, Verified 03/21/22 09:46 N/V Penicillins Allergy Unknown Rash Verified 03/21/22 09:46 <Deena Walden MD - Last Filed: 02/06/23 06:34> Review of Systems Review of Systems Positive epigastric pain <Deena Walden MD - Last Filed: 02/06/23 06:34> Yes all other systems are reviewed and are negative <Deena Walden MD - Last Filed: 02/06/23 06:34> [facility] Past Medical History Attestation statement: The following information was validated with the patient. <Deena Walden MD - Last Filed: 02/06/23 06:34> Medical History: Medical History Asthma, moderate Chronic GERD Dysfunctional uterine bleeding Iron deficiency anemia Neck pain on left side Paresthesia of hand <Deena Walden MD - Last Filed: 02/06/23 06:34> Surgical History: Surgical History H/O tubal ligation History of carpal tunnel surgery of right wrist <Deena Walden MD - Last Filed: 02/06/23 06:34> Family History Family History: Family History Father Colon cancer Mother Diabetes mellitus Brother No problems noted. Brother No problems noted. Son No problems noted. Daughter No problems noted. <Deena Walden MD - Last Filed: 02/06/23 06:34> Social History Social History: Social History Housing: House Alcohol intake: never Patient Tobacco Use Status: Former Tobacco user (12 years ) Tobacco use type: Cigarette Years Smoked: 20 years Smoked in Last 30 Days: Yes Use of substances other than those prescribed or required for medical reasons: No Advance Directives: No Patient : No (Tubal ligation 18 years ago) Current occupational status: employed Sexual orientation: Straight/Heterosexual <Deena Walden MD - Last Filed: 02/06/23 06:34> Physical Exam ED Vital Signs: Vital Signs - 24 hr 02/06/23 05:38 Temperature 98.1 F Pulse Rate 80 Respiratory Rate 16 Blood Pressure 109/76 Pulse Oximetry 98 Oxygen Delivery Method Room Air BMI result Body Mass Index 28.3 Appearance: Alert. Oriented X3. No acute distress. Eyes: Pupils equal, round and reactive to light. ENT: Pharynx normal. Neck: Normal inspection. Neck supple. No lymph nodes noted. No crepitus CVS: Normal heart rate and rhythm. Pulses normal. Normal S1 and S2 Respiratory: No respiratory distress. Breath sounds normal. No Wheezing. No rales Abdomen: Soft and nontender. No rigidity. No distention. good BS x4 Rectal the exam done with nurse present. Only mucus was noted. Hemoccult sent off to lab Skin: Skin warm and dry. Normal skin color. Normal skin turgor. Extremities: No lower extremity edema. Neurovascular intact to all extremities. No Lacerations. No Rash Neuro: Oriented X 3. No motor deficit. No sensory deficit. Moving all extermities. No slurred speech <Deena Walden MD - Last Filed: 02/06/23 06:34> Vital Signs - 24 hr 02/06/23 05:38 Temperature 98.1 F Pulse Rate 80 Respiratory Rate 16 Blood Pressure 109/76 Pulse Oximetry 98 Oxygen Delivery Method Room Air BMI result Body Mass Index 28.3 <Jacki Burk MD - Last Filed: 02/06/23 07:13> Course Reevaluation(s) Reevaluation #1: Is a 42-year-old female who was signed out to me for epigastric pain. There was a CT scan to be followed up on, apparently patient was concerned because in addition to the epigastric pain for which she took Pepto-Bismol she noted dark in stools after taking the Pepto-Bismol. I reviewed all of her workup and my interpretation is this is gastritis with the outside possibility of ulcer but this would need to be further evaluated and worked up as an outpatient. This was all communicated with the patient at bedside and she was discharged home on increased acid coverage as well as recommendations for dietary changes. <Jacki Burk MD - Last Filed: 02/06/23 07:13> Time: 07:10 <Jacki Burk MD - Last Filed: 02/06/23 07:13> Medical Decision Making Medical Decision Making [facility] Narrative: Abdominal pain question gastritis versus pancreatitis versus by related issue versus biliary issues. Labs are sent off. Patient less likely to have a GI bleed as she had black stool only after Pepto-Bismol. More likely the black stools caused by the basement. Electrolytes are pending. Will get CT scan of the abdomen as well Patient's hemoglobin came back at 11. Had had previous hemoglobin in the 11 range. Patient's LFTs are normal. Lipase is normal. Making biliary issue less likely unlikely to be secondary to pancreatitis. CT scan of the abdomen still pending. test is pending. Patient's history not consistent with ACS. No chest pain no shortness of breath. Patient's EKG by my interpretation showed a sinus rhythm heart rate is 70 ME QRS QTC within normal limits there is no acute ST segment elevation <Deena Walden MD - Last Filed: 02/06/23 06:34> Differential Diagnosis Differential Diagnoses: The differential diagnosis associated with the presentation includes <Deena Walden MD - Last Filed: 02/06/23 06:34> Gastritis, pancreatitis, biliary issue, related issue, GI bleed <Deena Walden MD - Last Filed: 02/06/23 06:34> Lab Data [facility] Lab Attestation statement: I reviewed the patient's lab results. <Deena Walden MD - Last Filed: 02/06/23 06:34> Result Diagrams: 02/06/23 05:53 02/06/23 05:53 <Deena Walden MD - Last Filed: 02/06/23 06:34> Labs: Lab Results 02/06/23 02/06/23 02/06/23 Range/Units 05:53 05:53 06:18 WBC 4.8 (4.8-10.8) X10*3/uL RBC 3.81 L (4.20-5.50) X10*6/uL Hgb 11.4 L (12.0-16.0) g/dl Hct 34.0 L (37.0-47.0) % MCV 89.2 (80.0-98.0) fL MCH 29.9 (27.0-33.0) pg MCHC 33.5 (31.0-35.0) g/dl RDW 13.0 (11.0-16.0) % Plt Count 167 (160-400) X10*3/uL MPV 12.2 (9.4-12.3) fL Immature Gran % (Auto) 0.4 (0.0-0.4) % Neut % (Auto) 44.5 L (45-73) % Lymph % (Auto) 40.2 H (20-40) % Dolores % (Auto) 10.7 (2-11) % Eos % (Auto) 3.8 (0-4) % Baso % (Auto) 0.4 (0-2) % Lymph # (Auto) 1.9 (1.2-4.9) X10*3/uL Dolores # (Auto) 0.5 (0.1-1.2) X10*3/uL Eos # (Auto) 0.2 (0.0-0.4) X10*3/uL Baso # (Auto) 0.0 (0.0-0.2) X10*3/uL Abs Immat Gran (auto) 0.02 (0.00-0.03) X10*3/uL Absolute Neuts (auto) 2.1 (2.0-8.3) x10*3/uL Absolute Nucleated RBC 0.000 (0.0-0.012) X10*3/uL Nucleated RBC % (auto) 0.0 (0.0-0.2) /100WBC Sodium 140 (135-145) mmol/L Potassium 3.5 D (3.3-5.1) mmol/L Chloride 107 (96-108) mmol/L Carbon Dioxide 24 (22-29) mmol/L Anion Gap 13 (12-20) BUN 8 L (9-16) mg/dL Creatinine 0.79 (0.5-1.4) mg/dL Estim Creat Clear Calc 94.3 Estimated GFR > 60 Random Glucose 107 (60-115) mg/dL Calcium 8.2 L D (8.4-10.2) mg/dL Total Bilirubin 0.6 (0.0-1.0) mg/dL Direct Bilirubin 0.2 (0.0-0.5) mg/dL AST 19 (5-31) U/L ALT 18 (0-31) U/L Alkaline Phosphatase 68 (39-117) U/L Total Protein 6.3 L (6.5-8.0) g/dL Albumin 3.6 (3.5-5.0) g/dL Lipase 35 (8-78) U/L Beta HCG, Quant < 2 mIU/mL Stool Occult Blood NEGATIVE (NEGATIVE) <Deena Walden MD - Last Filed: 02/06/23 06:34> Lab Results 02/06/23 02/06/23 02/06/23 Range/Units 05:53 05:53 06:18 WBC 4.8 (4.8-10.8) X10*3/uL RBC 3.81 L (4.20-5.50) X10*6/uL Hgb 11.4 L (12.0-16.0) g/dl Hct 34.0 L (37.0-47.0) % MCV 89.2 (80.0-98.0) fL MCH 29.9 (27.0-33.0) pg MCHC 33.5 (31.0-35.0) g/dl RDW 13.0 (11.0-16.0) % Plt Count 167 (160-400) X10*3/uL MPV 12.2 (9.4-12.3) fL Immature Gran % (Auto) 0.4 (0.0-0.4) % Neut % (Auto) 44.5 L (45-73) % Lymph % (Auto) 40.2 H (20-40) % Dolores % (Auto) 10.7 (2-11) % Eos % (Auto) 3.8 (0-4) % Baso % (Auto) 0.4 (0-2) % Lymph # (Auto) 1.9 (1.2-4.9) X10*3/uL Dolores # (Auto) 0.5 (0.1-1.2) X10*3/uL Eos # (Auto) 0.2 (0.0-0.4) X10*3/uL Baso # (Auto) 0.0 (0.0-0.2) X10*3/uL Abs Immat Gran (auto) 0.02 (0.00-0.03) X10*3/uL Absolute Neuts (auto) 2.1 (2.0-8.3) x10*3/uL Absolute Nucleated RBC 0.000 (0.0-0.012) X10*3/uL Nucleated RBC % (auto) 0.0 (0.0-0.2) /100WBC Sodium 140 (135-145) mmol/L Potassium 3.5 D (3.3-5.1) mmol/L Chloride 107 (96-108) mmol/L Carbon Dioxide 24 (22-29) mmol/L Anion Gap 13 (12-20) BUN 8 L (9-16) mg/dL Creatinine 0.79 (0.5-1.4) mg/dL Estim Creat Clear Calc 94.3 Estimated GFR > 60 Random Glucose 107 (60-115) mg/dL Calcium 8.2 L D (8.4-10.2) mg/dL Total Bilirubin 0.6 (0.0-1.0) mg/dL Direct Bilirubin 0.2 (0.0-0.5) mg/dL AST 19 (5-31) U/L ALT 18 (0-31) U/L Alkaline Phosphatase 68 (39-117) U/L Total Protein 6.3 L (6.5-8.0) g/dL Albumin 3.6 (3.5-5.0) g/dL Lipase 35 (8-78) U/L Beta HCG, Quant < 2 mIU/mL Stool Occult Blood NEGATIVE (NEGATIVE) <Jacki Burk MD - Last Filed: 02/06/23 07:13> Independent Interpretation I performed an independent interpretation of an: EKG <Deena Walden MD - Last Filed: 02/06/23 06:34> Interpretation: Sinus heart rate is 70 ME QRS QTC within normal limits there is no acute ST segment elevation <Deena Walden MD - Last Filed: 02/06/23 06:34> Medications Administered Discontinued Medications Generic Name Dose Route Start Last Admin Trade Name Freq PRN Reason Stop Dose Admin Iohexol 85 ml 02/06/23 06:42 02/06/23 06:42 Iohexol 350 Mg/Ml 100 Ml Infus..Btl IV 02/06/23 06:43 85 ml ONCE ONE Administration <Deena Walden MD - Last Filed: 02/06/23 06:34> Medications Administered Discontinued Medications Generic Name Dose Route Start Last Admin Trade Name Freq PRN Reason Stop Dose Admin Iohexol 85 ml 02/06/23 06:42 02/06/23 06:42 Iohexol 350 Mg/Ml 100 Ml Infus..Btl IV 02/06/23 06:43 85 ml ONCE ONE Administration <Jacki Burk MD - Last Filed: 02/06/23 07:13> Discharge Plan Discharge Clinical Impression: Gastritis, Epigastric abdominal pain <Deena Walden MD - Last Filed: 02/06/23 06:34> Patient Disposition: Home, Self-Care <Deena Walden MD - Last Filed: 02/06/23 06:34> Instructions: Gastritis (ED), Diet for Stomach Ulcers and Gastritis (ED) <Deena Walden MD - Last Filed: 02/06/23 06:34> Additional Instructions: 1. Limit the amount of NSAIDs that you take as this can contribute to your epigastric pain. 2. Will write a prescription for increased dosage of your omeprazole. 3. Follow-up with your primary care provider to further discuss further outpatient workup/management. Return to the ER for any worsening symptoms. <Deena Walden MD - Last Filed: 02/06/23 06:34> Prescriptions: New omeprazole 40 mg capsule,delayed release(DR/EC) 40 mg PO DAILY Qty: 30 0RF No Action ferrous sulfate 325 mg (65 mg iron) tablet,delayed release (DR/EC) 325 mg PO DAILY Qty: 30 2RF budesonide-formoterol [Symbicort] 80-4.5 mcg/actuation HFA aerosol inhaler 2 puff inhalation BID 30 Days Qty: 10.2 0RF albuterol sulfate 90 mcg/actuation HFA aerosol inhaler 1 puff PO QID PRN (Reason: for dyspnea) Qty: 8.5 0RF ibuprofen 600 mg tablet 600 mg PO Q8H PRN (Reason: pain) Qty: 20 0RF cephalexin 500 mg capsule 500 mg PO QID 5 Days Qty: 20 0RF ibuprofen 800 mg tablet 800 mg PO Q8H PRN (Reason: pain) Qty: 14 0RF oxycodone 5 mg tablet 5 mg PO Q6H PRN (Reason: pain) Qty: 3 0RF Rx Instructions: Partial Fill upon patient request. clindamycin HCl 300 mg capsule 300 mg PO TID 10 Days Qty: 30 0RF omeprazole 20 mg capsule,delayed release(DR/EC) 20 mg PO .qhs 90 Days Qty: 90 0RF cetirizine 10 mg capsule 10 mg PO DAILY PRN (Reason: allergy symptoms) 90 Days Qty: 90 3RF <Deena Walden MD - Last Filed: 02/06/23 06:34>
[2023-02-06 06:17] LABS: Alanine Aminotransferase 18 U/L (0-31); Albumin Level 3.6 g/dL (3.5-5.0); Alkaline Phosphatase 68 U/L (39-117); Anion Gap 13 (12-20); Aspartate Amino Transferase 19 U/L (5-31); Bilirubin Direct 0.2 mg/dL (0.0-0.5); Bilirubin Total 0.6 mg/dL (0.0-1.0); Blood Urea Nitrogen 8 mg/dL (9-16); Calcium 8.2 mg/dL (8.4-10.2); Carbon Dioxide 24 mmol/L (22-29); Chloride 107 mmol/L (96-108); Creatinine Clr Calc Pharmacy 94.3; Estimated Glomerular Filt Rate > 60; Glucose Random 107 mg/dL (60-115); Lipase 35 U/L (8-78); Potassium 3.5 mmol/L (3.3-5.1); Sodium 140 mmol/L (135-145); Total Protein 6.3 g/dL (6.5-8.0)
[2023-02-06 06:23] LABS: OBS Int Ctl Valid YES; OBS1 NEGATIVE (NEGATIVE)
--- NOTE | 2023-02-06 06:30 | PC.NURSE ---
Pt presents to the ED this morning for evaluation of ongoing abd pain since Monday, unrelieved by OTC methods. Pt reports taking Pepto on Monday with no decrease in pain. Pain is presently rated a 7/10, improves with ambulation and direct pressure over the affected area, and worsens with food consumption and lying flat. No similar episodes in the past. Dark stools present since Monday. Some nausea, but denies vomiting. No fever and no recent trauma. PO intake decreased due to discomfort.
[2023-02-06] MEDS: iohexoL 350 MG/ML 100 ML INFUS..BTL 85 ML IV (06:42)
[2023-02-06 06:53] LABS: HCG Quantitative < 2 mIU/mL
--- NOTE | 2023-02-06 07:18 | PC.NURSE ---
Medications given by previous nurse, unable to chart against.
== END 2023-02-06 07:29 | disposition home or self-care (01) ==
PROVIDERS: Emergency Provider Emergency Medicine Emergency Medical Services
DX: K29.70 Gastritis, unspecified, without bleeding (principal); R10.13 Epigastric pain; R07.89 Other chest pain; Z79.899 Other long term (current) drug therapy; Z87.891 Personal history of nicotine dependence
CPT/HCPCS: 36415; 74177; 80053; 80076; 82248; 82272; 83690; 84702; 85025; 93005; 99284; Q9967

== ENCOUNTER 2023-05-21 14:17 | Emergency (ER) | payer OTHER, SELFPAY ==
[2023-05-21 16:08] VITALS: BP 125/86; PULSE 74; RESP 18; TEMP 36.6; O2SAT 100; BMI 28.3
--- NOTE | 2023-05-21 16:12 | ED_ITS ---
HPI - General Adult General Chief complaint: General Medical Stated complaint: SOB. chest pain Time Seen by Provider: 05/21/23 17:47 Source: patient Mode of arrival: ambulatory Limitations: no limitations History of Present Illness HPI narrative: 42-year-old female with a history of asthma, active smoker, anemia, environmental allergies, GERD, dysfunctional uterine bleeding who presents to the ER for evaluation of chest congestion, chest tightness, sore throat and coughing for the last 3 days. 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 She denies any fevers. She reports history of asthma but does not have any inhalers at home. She feels like the congestion settled in her chest and she is unable to get up. She has tried [id number] cold medication and expectorants without any relief. She denies any chest pain or difficulty breathing. MD complaint: Chest congestion Onset (ago): day(s) (3) Location: chest Radiation: non-radiation Severity: moderate Severity scale (1-10): 5 Quality: aching Pain Consistency: intermittent Relieving factors: none Exacerbating factors: other (Coughing) Associated symptoms: cough and shortness of breath Treatments prior to arrival: none Related Data Previous Rx's Medication Instructions Recorded ibuprofen 600 mg tablet 600 mg PO Q8H PRN pain #20 tabs 04/30/21 cetirizine 10 mg capsule 10 mg PO DAILY PRN allergy 09/10/21 symptoms 90 days #90 caps omeprazole 20 mg capsule,delayed 20 mg PO .qhs 90 days #90 caps 09/10/21 release ferrous sulfate 325 mg (65 mg 325 mg PO DAILY #30 tabs 12/02/21 iron) tablet,delayed release budesonide-formoterol HFA 80 2 puff inhalation BID 30 days 09/16/22 mcg-4.5 mcg/actuation aerosol #10.2 grams inhaler (Symbicort) cephalexin 500 mg capsule 500 mg PO QID 5 days #20 caps 10/02/22 clindamycin HCl 300 mg capsule 300 mg PO TID dental infection 10 11/02/22 days #30 caps ibuprofen 800 mg tablet 800 mg PO Q8H PRN pain #14 tabs 11/02/22 oxycodone 5 mg tablet 5 mg PO Q6H PRN pain #3 tabs 11/02/22 albuterol sulfate 90 mcg/actuation 1 puff PO QID PRN for dyspnea #8.5 11/08/22 aerosol inhaler grams omeprazole 40 mg capsule,delayed 40 mg PO DAILY #30 caps 02/06/23 release albuterol sulfate 90 mcg/actuation 1 inh inhalation QID PRN shortness 05/21/23 aerosol inhaler of breath or wheezing #6.7 grams azithromycin 250 mg tablet See Rx Instructions PO .COMPLEX #6 05/21/23 (Zithromax Z-Pascual) tabs benzonatate 100 mg capsule 100 mg PO TID PRN cough #30 caps 05/21/23 prednisone 20 mg tablet 40 mg PO DAILY #10 tabs 05/21/23 Allergies Allergy/AdvReac Type Severity Reaction Status Date / Time morphine [Morphine] Allergy Intermediate VOMITING, Verified 03/21/22 09:46 N/V Penicillins Allergy Unknown Rash Verified 03/21/22 09:46 Review of Systems Review of Systems: Yes all other systems are reviewed and are negative PMFSH Past Medical History Attestation statement: The following information was validated with the patient. Medical History Asthma, moderate Chronic GERD Dysfunctional uterine bleeding Iron deficiency anemia Neck pain on left side Paresthesia of hand Surgical History H/O tubal ligation History of carpal tunnel surgery of right wrist Family History Family History Father Colon cancer Mother Diabetes mellitus Brother No problems noted. Brother No problems noted. Son No problems noted. Daughter No problems noted. Social History Social History Housing: House Alcohol intake: never Patient Tobacco Use Status: Former Tobacco user (12 years ) Tobacco use type: Cigarette Years Smoked: 20 years Smoked in Last 30 Days: Yes Use of substances other than those prescribed or required for medical reasons: Yes Substance Use Type: Marijuana Advance Directives: No Advance Directives Information Provided: No Current occupational status: employed Sexual orientation: Straight/Heterosexual Physical Exam ED Vital Signs: Vital Signs - 24 hr 05/21/23 16:08 05/21/23 18:05 05/21/23 18:29 Temperature 98 F 98.2 F Pulse Rate 74 67 Respiratory Rate 18 18 18 Blood Pressure 125/86 107/75 Pulse Oximetry 100 99 Oxygen Delivery Method Room Air Room Air BMI result Body Mass Index 28.3 Course Course Course Narrative: RME: 42 yold female presents to the ED for sore throat, coughing, nasal congestion, and chest tighness for 3 days. Swabs/chest xray ordered Reevaluation(s) Reevaluation #1: Significant improvement in aeration after nebulizer treatment. Chest x-ray rev iewed, no pneumonia. Stable for discharge home with treatment for acute bronchitis. Time: 19:40 Medications Administered Discontinued Medications Generic Name Dose Route Start Last Admin Trade Name Freq PRN Reason Stop Dose Admin Albuterol Sulfate 10 mg 05/21/23 18:11 05/21/23 18:27 Albuterol Sulfate (0.083%) 2.5 Mg/3 Ml Vial.Neb INHALE 05/21/23 18:12 10 mg ONCE ONE Administration Guaifenesin 1,200 mg 05/21/23 18:11 05/21/23 18:48 Guaifenesin La 600 Mg Tab.Er.12h PO 05/21/23 18:12 1,200 mg ONCE ONE Administration Prednisone 40 mg 05/21/23 18:11 05/21/23 18:48 Prednisone 20 Mg Tablet PO 05/21/23 18:12 40 mg ONCE ONE Administration Medical Decision Making Medical Decision Making [facility] Narrative: 42-year-old female with history of asthma, smoking, anemia, allergies who presents to the ER for evaluation of 3 days of cough, chest tightness, sore throat, wheezing and feeling unwell. Her vital signs are stable, she is saturating 100% on room air. She is able to speak in complete sentences, no respiratory distress. She does have diffuse rhonchi and scattered wheezes on examination. She was given steroids and albuterol nebulizer with improvement in her symptoms. Her chest x-ray was negative for pneumonia. She is negative for COVID, flu, strep. Stable for discharge home with treatment for acute bronchitis. Differential Diagnosis Differential Diagnoses: The differential diagnosis associated with the presentation includes strep, covid, flu, rsv, other viral syndrome, bronchitis, pneumonia, no evidence of peritonsillar abcsess or retropharyngeal abscess Admission/Observation Consideration of admission/observation: Escalation of care including admission/observation considered 42-year-old asthmatic with rhonchi and wheezing requiring 10 mg nebulized treatment in the emergency department nose well as steroids. Considered observation. Lab Data MDM Lab Attestation statement: I reviewed the patient's lab results. Labs: Lab Results 05/21/23 05/21/23 05/21/23 Range/Units 16:27 16:27 16:27 COVID-19 ([facility]) Negative (Negative) COVID-19 Clin Com See Note Influenza Type A ([facility]) Negative (Negative) Influenza Type B ([facility]) Negative (Negative) Influenza A & B Note See Note S. pyogenes GrpA [facility] Negative (Negative) Independent Interpretation I performed an independent interpretation of an: EKG and Plain X-Ray Interpretation: CXR - lungs clear EKG normal sinus rhythm, HR 80 bpm, no ST segment elevations or depressions, no change from prior Radiology Impression Discussion of test interpretation with radiology: I have reviewed the radiologist's reading. Radiologist Impression: XR/XR chest 1V IMPRESSION: Unremarkable chest examination. External Record Review External record reviewed: Office record, Outpatient record, Prior outpatient labs and Prior outpatient radiology Prescription Management I considered prescription management with: Antibiotic Chronic Conditions Patient?s care impacted by: Other (asthma) Critical Care Time Critical Care Time Critical Care Time: No Discharge Plan Discharge Clinical Impression: Acute bronchitis, Asthma Patient Disposition: Home, Self-Care Instructions: Asthma (DC), Acute Bronchitis (ED) Additional Instructions: Your chest x-ray was normal. Your EKG was normal. You tested negative for COVID, influenza, strep throat. Your symptoms most likely viral in etiology. Take the prescribed medications as directed. Rest and drink plenty of fluids. Do your best to quit smoking. Follow-up with your doctor. If you develop new or worsening symptoms call 911 or come back to the ER for further evaluation. Prescriptions: New prednisone 20 mg tablet 40 mg PO DAILY Qty: 10 0RF azithromycin [Zithromax Z-Pascual] 250 mg tablet See Rx Instructions .ROUTE .COMPLEX Qty: 6 0RF Rx Instructions: take 500 mg today (day 1), then 250 mg for 4 days (days 2-5) benzonatate 100 mg capsule 100 mg PO TID PRN (Reason: cough) Qty: 30 0RF albuterol sulfate 90 mcg/actuation HFA aerosol inhaler 1 inh inhalation QID PRN (Reason: shortness of breath or wheezing) Qty: 6.7 0RF No Action ferrous sulfate 325 mg (65 mg iron) tablet,delayed release (DR/EC) 325 mg PO DAILY Qty: 30 2RF budesonide-formoterol [Symbicort] 80-4.5 mcg/actuation HFA aerosol inhaler 2 puff inhalation BID 30 Days Qty: 10.2 0RF albuterol sulfate 90 mcg/actuation HFA aerosol inhaler 1 puff PO QID PRN (Reason: for dyspnea) Qty: 8.5 0RF ibuprofen 600 mg tablet 600 mg PO Q8H PRN (Reason: pain) Qty: 20 0RF cephalexin 500 mg capsule 500 mg PO QID 5 Days Qty: 20 0RF ibuprofen 800 mg tablet 800 mg PO Q8H PRN (Reason: pain) Qty: 14 0RF oxycodone 5 mg tablet 5 mg PO Q6H PRN (Reason: pain) Qty: 3 0RF Rx Instructions: Partial Fill upon patient request. clindamycin HCl 300 mg capsule 300 mg PO TID 10 Days Qty: 30 0RF omeprazole 40 mg capsule,delayed release(DR/EC) 40 mg PO DAILY Qty: 30 0RF omeprazole 20 mg capsule,delayed release(DR/EC) 20 mg PO .qhs 90 Days Qty: 90 0RF cetirizine 10 mg capsule 10 mg PO DAILY PRN (Reason: allergy symptoms) 90 Days Qty: 90 3RF Stand Alone Forms: Work/School Release Interventions: ED Discharge Assessment Last Done: 05/21/23 19:45 Discharge Date/Time: 05/21/23 19:45
[2023-05-21 18:05] VITALS: BP 107/75; RESP 18; TEMP 36.8; O2SAT 99
[2023-05-21 18:29] VITALS: PULSE 67; RESP 18; O2SAT 100
== END 2023-05-21 19:45 | disposition home or self-care (01) ==
PROVIDERS: Emergency Provider Internal Medicine
DX: J40 Bronchitis, not specified as acute or chronic (principal); R07.89 Other chest pain; R06.02 Shortness of breath; R05.9 Cough, unspecified; Z20.822 Contact with and (suspected) exposure to COVID-19; Z20.828 Contact with and (suspected) exposure to other viral communicable diseases; Z87.891 Personal history of nicotine dependence; Z79.899 Other long term (current) drug therapy
CPT/HCPCS: 71045; 87502; 87635; 87651; 93005; 94640; 99284; 99285

== ENCOUNTER → 2023-05-21 14:18 | Outpatient (BNV) | payer SELFPAY | PROVIDERS: Emergency Provider Internal Medicine; Visit Provider Internal Medicine Cardiovascular Disease | DX: R07.9 Chest pain, unspecified (principal) | CPT/HCPCS: 93010 ==

== ENCOUNTER 2023-06-14 11:38 | Emergency (ER) | payer OTHER, SELFPAY ==
[2023-06-14 12:06] VITALS: BP 144/65; PULSE 84; RESP 18; TEMP 35.8; O2SAT 100; BMI 35.1
--- NOTE | 2023-06-14 12:08 | ED.GENADULT ---
HPI - General Adult General Chief complaint: Extremity Problem Stated complaint: Toe infection ? Time Seen by Provider: 06/14/23 12:51 Source: patient and old records reviewed Mode of arrival: ambulatory Limitations: no limitations History of Present Illness HPI narrative: 42-year-old female with a past medical history of asthma, GERD, anemia, presenting to the ED complaining of painful ingrown toenail to right great toe x2 days. Admits to similar symptoms in the past. States tried to cut out herself at home. Denies fever/chills Onset (ago): day(s) Related Data Previous Rx's Medication Instructions Recorded ibuprofen 600 mg tablet 600 mg PO Q8H PRN pain #20 tabs 04/30/21 cetirizine 10 mg capsule 10 mg PO DAILY PRN allergy 09/10/21 symptoms 90 days #90 caps omeprazole 20 mg capsule,delayed 20 mg PO .qhs 90 days #90 caps 09/10/21 release ferrous sulfate 325 mg (65 mg 325 mg PO DAILY #30 tabs 12/02/21 iron) tablet,delayed release budesonide-formoterol HFA 80 2 puff inhalation BID 30 days 09/16/22 mcg-4.5 mcg/actuation aerosol #10.2 grams inhaler (Symbicort) cephalexin 500 mg capsule 500 mg PO QID 5 days #20 caps 10/02/22 clindamycin HCl 300 mg capsule 300 mg PO TID dental infection 10 11/02/22 days #30 caps ibuprofen 800 mg tablet 800 mg PO Q8H PRN pain #14 tabs 11/02/22 oxycodone 5 mg tablet 5 mg PO Q6H PRN pain #3 tabs 11/02/22 albuterol sulfate 90 mcg/actuation 1 puff PO QID PRN for dyspnea #8.5 11/08/22 aerosol inhaler grams omeprazole 40 mg capsule,delayed 40 mg PO DAILY #30 caps 02/06/23 release albuterol sulfate 90 mcg/actuation 1 inh inhalation QID PRN shortness 05/21/23 aerosol inhaler of breath or wheezing #6.7 grams azithromycin 250 mg tablet See Rx Instructions PO .COMPLEX #6 05/21/23 (Zithromax Z-Pascual) tabs benzonatate 100 mg capsule 100 mg PO TID PRN cough #30 caps 05/21/23 prednisone 20 mg tablet 40 mg PO DAILY #10 tabs 05/21/23 Allergies Allergy/AdvReac Type Severity Reaction Status Date / Time morphine [Morphine] Allergy Intermediate VOMITING, Verified 03/21/22 09:46 N/V Penicillins Allergy Unknown Rash Verified 03/21/22 09:46 Review of Systems Review of Systems: Constitutional: No Fever, No Chills ENT/Mouth: No Ear Pain, No Nasal Congestion, No sore throat, No Rhinorrhea, No Swallowing Difficulty Cardiovascular: No Chest Pain, No SOB Respiratory: No Cough, No Sputum, No Wheezing Musculoskeletal: No joint pain, No Myalgias, No Joint Swelling Skin: + Skin Lesions, No rash Neuro: No Weakness Yes all other systems are reviewed and are negative Constitutional: Constitutional: Reports as per [facility] Past Medical History Attestation statement: The following information was validated with the patient. Source: old records reviewed Medical History Asthma, moderate Chronic GERD Dysfunctional uterine bleeding Iron deficiency anemia Neck pain on left side Paresthesia of hand Surgical History H/O tubal ligation History of carpal tunnel surgery of right wrist Family History Family History Father Colon cancer Mother Diabetes mellitus Brother No problems noted. Brother No problems noted. Son No problems noted. Daughter No problems noted. Social History Social History Housing: House Alcohol intake: never Patient Tobacco Use Status: Former Tobacco user (12 years ) Tobacco use type: Cigarette Years Smoked: 20 years Substance Use Type: Marijuana Advance Directives: No Current occupational status: employed Sexual orientation: Straight/Heterosexual Physical Exam ED Vital Signs: Vital Signs - 24 hr 06/14/23 12:06 Temperature 96.5 F L Pulse Rate 84 Respiratory Rate 18 Blood Pressure 144/65 H Pulse Oximetry 100 Oxygen Delivery Method Room Air BMI result Body Mass Index 35.1 Const General: cooperative, healthy appearing and no acute distress Orientation/consciousness: patient oriented x3 Limitations: no limitations HENMT Head: Yes normal to inspection and Yes atraumatic Ears: hearing grossly normal bilaterally General nose exam: Normal external nose present Face and sinus: Yes normal facial exam Eyes General: appearance normal, both eyes and all related structures EOM: EOMs intact bilaterally Neck Neck: Yes normal visual inspection and Yes no meningeal signs Resp Effort & Inspection: normal respiratory effort and no respiratory distress Cardio Rate: regular rate Skin Rashes: no rashes Neuro General: patient oriented x3, tone normal and no meningeal signs Gait exam (Neuro): Normal gait present Extrem Other: + ingrown toenail to medial aspect of right great toe with surrounding swelling / erythema and slight expressible pus drainage. No fluctuance/induration, warmth or circumferential erythema Course Course Course Narrative: This is an RME: Additional HPI, ROS, PE not included below will be deferred to primary provider. This is a [id number]-female presenting to the ER with complaints of right great toe ingrown nails x 2 days. - ingrown toenail removed with a nail elevator and cuticle cutters without complications. Xeroform dressing applied, recommended podiatry follow-up Medications Administered Discontinued Medications Generic Name Dose Route Start Last Admin Trade Name Aman PRN Reason Stop Dose Admin Lidocaine HCl 5 ml 06/14/23 12:34 06/14/23 12:48 Lidocaine Hcl 1 % Mpf 5 Ml Vial INFILTRATI 06/14/23 12:35 5 ml ONCE ONE Administration Procedures Abscess I/D Site: foot Side (if applicable): right Local Anesthetic: lidocaine 1% ( digital block) Amount of anesthesia used (mL): 5 Technique: other ( nail elevator and cuticle cautery is used) Packing used?: none Medical Decision Making Medical Decision Making MDM Narrative: 42-year-old female with a past medical history of asthma, GERD, anemia, presenting to the ED complaining of painful ingrown toenail to right great toe x2 days. on exam vital signs stable, NAD, nontoxic appearing, physical exam as noted above with ingrown toe nail to right great toe. No evidence of cellulitis / abscess, septic drain/arthritis discussed with patient I&D in the ED vs with Podiatry would rather have it performed today Please refer to course for remaining clinical decision making, interpretation of labs/imaging results, and discussions with consultants and/or family members. Differential Diagnosis Differential Diagnoses: The differential diagnosis associated with the presentation includes As above External Record Review External record reviewed: Inpatient record, Office record, Outpatient record, Prior outpatient labs, Prior outpatient radiology, Primary care record and Outside ED record Tests considered The following testing was considered but not selected: As above Prescription Management I considered prescription management with: Pain Medication and Antibiotic Discharge Plan Discharge Clinical Impression: IGTN (ingrowing toe nail) Patient Disposition: Home, Self-Care Instructions: Ingrown Nail (ED) Additional Instructions: Perform daily wound checks and dressing changes. Do NOT soak the affected area. Follow up with your primary care provider and a mold capper helper. Return to the emergency department immediately if your symptoms worsen or if you develop any dizziness, shortness of breath, difficulty breathing, chest pain, blurry vision, loss of vision, nausea, vomiting, abdominal pain, fever, chills, back pain, or any other complaints. Prescriptions: No Action ferrous sulfate 325 mg (65 mg iron) tablet,delayed release (DR/EC) 325 mg PO DAILY Qty: 30 2RF budesonide-formoterol [Symbicort] 80-4.5 mcg/actuation HFA aerosol inhaler 2 puff inhalation BID 30 Days Qty: 10.2 0RF albuterol sulfate 90 mcg/actuation HFA aerosol inhaler 1 puff PO QID PRN (Reason: for dyspnea) Qty: 8.5 0RF ibuprofen 600 mg tablet 600 mg PO Q8H PRN (Reason: pain) Qty: 20 0RF cephalexin 500 mg capsule 500 mg PO QID 5 Days Qty: 20 0RF ibuprofen 800 mg tablet 800 mg PO Q8H PRN (Reason: pain) Qty: 14 0RF oxycodone 5 mg tablet 5 mg PO Q6H PRN (Reason: pain) Qty: 3 0RF Rx Instructions: Partial Fill upon patient request. clindamycin HCl 300 mg capsule 300 mg PO TID 10 Days Qty: 30 0RF omeprazole 40 mg capsule,delayed release(DR/EC) 40 mg PO DAILY Qty: 30 0RF prednisone 20 mg tablet 40 mg PO DAILY Qty: 10 0RF azithromycin [Zithromax Z-Pascual] 250 mg tablet See Rx Instructions .ROUTE .COMPLEX Qty: 6 0RF Rx Instructions: take 500 mg today (day 1), then 250 mg for 4 days (days 2-5) benzonatate 100 mg capsule 100 mg PO TID PRN (Reason: cough) Qty: 30 0RF albuterol sulfate 90 mcg/actuation HFA aerosol inhaler 1 inh inhalation QID PRN (Reason: shortness of breath or wheezing) Qty: 6.7 0RF omeprazole 20 mg capsule,delayed release(DR/EC) 20 mg PO .qhs 90 Days Qty: 90 0RF cetirizine 10 mg capsule 10 mg PO DAILY PRN (Reason: allergy symptoms) 90 Days Qty: 90 3RF Referrals: [facility] [place] [facility] [Provider Group] (Call to establish and follow up with a primary care provider. If you already have a primary care provider, please follow up with them.) [facility] [place] [facility] [place] [Provider Group] (Call to establish and follow up with a primary care provider. If you already have a primary care provider, please follow up with them.) [facility] [place] [facility] [Provider Group] (Call to establish and follow up with a primary care provider. If you already have a primary care provider, please follow up with them.) Aneesh Bernal DPM [Physician] - (Call to establish and follow up with a mold capper helper (counseling specialist).) Stand Alone Forms: Work/School Release Interventions: ED Discharge Assessment Last Done: 06/14/23 13:31 Discharge Date/Time: 06/14/23 13:31 Print Language: Korean
[2023-06-14] MEDS: Lidocaine HCl 1 % MPF 5 ML VIAL INFILTRATI (12:48)
== END 2023-06-14 13:31 | disposition home or self-care (01) ==
PROVIDERS: Emergency Provider Emergency Medicine
DX: L60.0 Ingrowing nail (principal); Z87.891 Personal history of nicotine dependence; Z79.899 Other long term (current) drug therapy
CPT/HCPCS: 11750; 99282; 99284

== ENCOUNTER 2023-08-14 11:43 | Outpatient (REF) | payer OTHER, SELFPAY | END 2023-08-14 11:44 | disposition home or self-care (01) | LOC: HO.MAMMO 11:43 | PROVIDERS: PCP Internal Medicine; Visit Provider Internal Medicine | DX: Z12.31 Encounter for screening mammogram for malignant neoplasm of breast (principal) | CPT/HCPCS: 77063; 77067 ==

== ENCOUNTER → 2023-08-14 12:15 | Outpatient (BNV) | payer OTHER, SELFPAY | PROVIDERS: PCP Internal Medicine; Visit Provider Radiology Diagnostic Radiology | DX: Z12.31 Encounter for screening mammogram for malignant neoplasm of breast (principal) | CPT/HCPCS: 77063; 77067 ==

== ENCOUNTER 2023-12-06 13:32 | Outpatient (AMB) | payer OTHER, SELFPAY ==
[2023-12-06 13:50] VITALS: BP 122/84; PULSE 83; O2SAT 99; BMI 35.0
--- NOTE | 2023-12-06 13:50 | A.OFFPC_ITS ---
Vital Signs 12/06/23 13:50 Height 5 ft Weight 179 lb BMI 35.0 BP 122/84 Blood Pressure Location Rt brachial Position Sitting Pulse 83 Pulse Source Pulse Oximeter Pulse Oximetry (%) 99 Oxygen Delivery Method Room Air Intake Visit Reasons: Annual PE Allergies morphine [Morphine] Allergy (Intermediate, Verified 12/06/23 13:50) VOMITING, N/V Penicillins Allergy (Unknown, Verified 12/06/23 13:50) Rash Medication List - Last Reconciled 12/06/23 by Maria R Turner MD albuterol sulfate 90 mcg/actuation 1 inh inhalation QID PRN albuterol sulfate 90 mcg/actuation 1 puff PO QID PRN benzonatate 100 mg PO TID PRN budesonide-formoterol 80-4.5 mcg/actuation (Symbicort) 2 puffs inhalation BID 30 days cetirizine 10 mg PO DAILY PRN 90 days ibuprofen 600 mg PO Q8H PRN omeprazole 40 mg PO DAILY Tobacco use date assessed: 12/06/23 Dental Screening Dental Screen Date: 12/06/23 Did you have a dental visit in the last 12 months?: No Did you have a dental problem in the last 6 months where you did not have access to dental care?: No Was dental information given to patient?: Patient has dentist HPI Annual PE HPI Details Patient is a 43-year-old female with a history of obesity, chronic skin rash which has been evaluated by dermatology long time ago but no treatment was provided as per patient History of asthma, Iron-deficiency anemia, thrombocytopenia, complaining of bilateral ingrown toenail which is recurrent and is requesting podiatry referral Complaining of pain in her left hand, 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, she has developed a little cyst in the palm of her hand I have placed a referral for her to be evaluated by Orthopedic For her rash which looks like tinea corporis I have prescribed terbinafine for 2 weeks to 50 mg Patient will return in 2 weeks for re-evaluation Symbicort refill sent for asthma Continue omeprazole She is also complaining of dysuria we did a urinalysis-today which shows no signs of infection Need to lose weight BMI is 35.0 PFSH Medical History Dysfunctional uterine bleeding Neck pain on left side Paresthesia of hand Chronic GERD Asthma, moderate Iron deficiency anemia Surgical History H/O tubal ligation History of carpal tunnel surgery of right wrist Family History Father Colon cancer Mother Diabetes mellitus Brother No problems noted. Brother No problems noted. Son No problems noted. Daughter No problems noted. Social History Housing: House Alcohol intake: never Patient Tobacco Use Status: Former Tobacco user Tobacco use type: Cigarette Years Smoked: 20 years e-Cigarette/Vaping Use: Never Used Substance Use Type: Marijuana Current occupational status: employed Sexual orientation: Straight/Heterosexual Cognitive needs: No Hearing needs: No Vision needs: No Female Reproductive History Menstrual Age of Menarche: 13 Questionnaire PHQ-9 Over the last 2 weeks, how often have you been bothered by any of the following problems? 1. Little interest or pleasure in doing things: several days 2. Feeling down, depressed, or hopeless: not at all 3. Trouble falling or staying asleep, or sleeping too much: not at all 4. Feeling tired or having little energy: several days 5. Poor appetite or overeating: not at all 6. Feeling bad about yourself - or that you are a failure or have let yourself or your family down: not at all 7. Trouble concentrating on things, such as reading the newspaper or watching television: not at all 8. Moving or speaking so slowly that other people could have noticed. Or the opposite - being so fidgety or restless that you have been moving around a lot more than usual: not at all 9. Thoughts that you would be better off or of hurting yourself in some way: not at all Total score: 2 Depression Screening Interpretation: Negative Depression Screening Done: Yes 69115 - PHQ-9 Billing: Yes Source: Developed by Drs. Cam Garcia, Lizzie Bridges, Godwin Rodgers and colleagues, with an educational lydia from [employer]. Thrive Questionnaire Date Thrive assessed: 12/06/23 I am a: Patient What is your living situation today?: I have a steady place to live Within the past 12 months, did the food you bought not last and you didn't have the money to get more?: Never true Within the past 12 months, did you worry whether your food would run out before you got money to buy more?: Never true Do you have trouble paying for medicines?: No Do you have trouble getting transportation to medical appointments?: No Do you have trouble paying your heating and electricity bill?: No Do you have trouble taking care of your child, family member or friend?: No Do you have trouble with day-to-day activities such as bathing, preparing meals, shopping, managing finances, etc.?: No Are you currently unemployed and looking for a job?: No Are you interested in more education?: No Please select the resources that you would like help with: None THRIVE Score: 0 AUDIT C Alcohol Use Questionnaire (AUDIT-C) 1. How often do you have a drink containing alcohol?: Never 3. How often do you have six or more drinks on one occasion?: Never Total Score: 0 Score Reviewed/Action Taken: Yes WHIT-7 AMB Questionnaire WHIT-7 Date WHTI - 7 assessed: 12/06/23 Feeling nervous, anxious, or on edge: 0 = Not at all Not being able to stop or control worryin = Not at all Worrying too much about different things: 0 = Not at all Trouble relaxin = Not at all Being so restless that it is hard to sit still: 0 = Not at all Becoming easily annoyed or irritable: 0 = Not at all Feeling afraid as if something awful might happen: 0 = Not at all Total WHIT-7 score (0-4 normal; 5-9 mild; 10-14 moderate; 15-21 severe): 0 Source: Developed by Drs. Cam Garcia, Lizzie Bridges, Godwin Rodgers and colleagues, with an educational lydia from [employer]. WHIT-7 Assessment Billing WHIT-7 Assessment Tool: WHIT-7 Assessment 84957 Review of Systems Const Denies chills, Denies fever(s) and Denies headache(s) Eyes Denies blurry vision ENT Denies headache(s), Denies nasal discharge, Denies nasal obstruction, Denies odynophagia and Denies sinus pain Card Denies chest pain at rest and Denies chest pain with activity Resp Denies cough and Denies hemoptysis GI Denies diarrhea, Denies odynophagia, Denies vomiting and Denies hematemesis Reports as per HPI Musc Denies abnormal gait Skin/Breast Reports as per HPI Neuro Denies Neuro-related abnormal movements, Denies Abnormal speech present, Denies abnormal gait, Denies headache(s) and Denies Sensory deficit (Neuro) Psych Denies mood swings and Denies paranoia Endo Reports as per HPI Jorge L/Lymph Reports as per HPI Aller/Immun Reports as per HPI Physical exam (Primary Care) Vital Signs: Last Vital Signs Pulse 83 12/06/23 13:50 BP 122/84 12/06/23 13:50 Pulse Ox 99 12/06/23 13:50 Oxygen Delivery Method Room Air 12/06/23 13:50 BMI result Body Mass Index 35.0 Tobacco/Smoking Status: Tobacco use Status Tobacco use date assessed 12/06/23 12/06/23 13:57 Patient Tobacco Use Status Former Tobacco user 12/06/23 13:57 Tobacco use type Cigarette 12/06/23 13:57 e-Cigarette/Vaping Use Never Used 12/06/23 13:57 PHQ-9: PHQ-9 Score PHQ-9: Total score 2 12/06/23 14:27 Depression Screening Interpretation: Negative Thrive Assessment: Date of Thrive Assessment Date Thrive assessed 12/06/23 12/06/23 14:16 Const General: cooperative, comfortable and no acute distress Orientation/consciousness: patient oriented x3 HENMT Head: Yes normocephalic and Yes atraumatic Eyes General: appearance normal, both eyes and all related structures Pupils: Equal, round and reactive pupils present EOM: EOMs intact bilaterally Neck Neck: Yes supple and No lymphadenopathy Thyroid: Thyroid normal Lymphatic: no lymphadenopathy noted Resp Effort & Inspection: normal respiratory effort and able to speak in complete sentences Auscultation: clear to auscultation bilaterally Cardio Heart sounds: S1 normal heart sound present and S2 normal heart sound present GI Palpation (GI): Soft to palpation and nontender Auscultation: normal bowel sounds General: Yes no CVA tenderness Back/Spine/Pelvis Back: no CVA tenderness Skin Other: Patchy discolored rash mostly on chest area General skin exam: elasticity normal and turgor normal Neuro General: patient oriented x3 and gait normal Cranial nerves: Yes Equal, round and reactive pupils present Speech: No Abnormal speech present Sensory Exam: No Sensory deficit (Neuro) Coordination: tandem gait normal and Romberg test negative Extrem General: Yes normal exam except as noted and No edema Results AMB Urinalysis, Automated UA Leukoctes 0 [place]/uL Last Edit by Enid Levy CMA on 12/06/23 14:29 UA Nitrite Negative Last Edit by Enid Levy CMA on 12/06/23 14:29 UA Urobilinogen 0.2 mg/dL Last Edit by Enid Levy CMA on 12/06/23 14:29 UA Protein 0 mg/dL Last Edit by Enid Levy CMA on 12/06/23 14: UA pH 6.0 Last Edit by Enid Levy CMA on 12/06/23 14: UA Blood 0 Bert/uL Last Edit by Enid Levy, MANUELA on 12/06/23 14:29 UA Specific [place] 1.005 Last Edit by Enid Levy CMA on 12/06/23 14:29 UA Ketone Negative Last Edit by Enid Levy CMA on 12/06/23 14:29 UA Bilirubin 0 mg/dL Last Edit by Enid Levy CMA on 12/06/23 14:29 UA Glucose 0 mg/dL Last Edit by Enid Levy CMA on 12/06/23 14:29 Results Reviewed Results Reviewed: Laboratory Last Values Urine pH (Auto) 6.0 12/06/23 14: Specific [place] (Auto) 1.005 12/06/23 14:27 Urine Protein (Auto) 0 mg/dL 12/06/23 14:27 Glucose (UA)(Auto) 0 mg/dL 12/06/23 14:27 Urine Ketones (Auto) Negative 12/06/23: Urine Blood (Auto) 0 Bert/uL 12/06/23: Urine Nitrite (Auto) Negative 12/06/23 14:27 Urine Bilirubin (Auto) 0 mg/dL 12/06/23 14:27 Urine Urobilinogen (Auto) 0.2 mg/dL 12/06/23 14:27 Leukocyte Esterase (Auto) 0 [place]/uL 12/06/23 14:27 Assessment and Plan Assessment & Plan (1) Encounter for general adult medical examination with abnormal findings: Code(s): Z00.01 - Encounter for general adult medical examination with abnormal findings (2) Thrombocytopenia: Code(s): D69.6 - Thrombocytopenia, unspecified (3) Obesity due to excess calories: Code(s): E66.09 - Other obesity due to excess calories Qualifiers: Obesity classification: adult class 2 (BMI 35 - 39.9) Serious obesity comorbidity presence: without serious comorbidity Body mass index: BMI 35.0- 35.9 Qualified Code(s): E66.09 - Other obesity due to excess calories; Z68.35 - Body mass index [BMI] 35.0-35.9, adult (4) Environmental allergies: Code(s): Z91.09 - Other allergy status, other than to drugs and biological substances (5) Chronic GERD: Code(s): K21.9 - Gastro-esophageal reflux disease without esophagitis (6) Iron deficiency anemia: Code(s): D50.9 - Iron deficiency anemia, unspecified Qualifiers: Iron deficiency anemia type: other iron deficiency Qualified Code(s): D50.8 - Other iron deficiency anemias (7) Hand pain, right: Code(s): M79.641 - Pain in right hand (8) Ingrown toenail of both feet: Code(s): L60.0 - Ingrowing nail (9) Asthma, moderate: Code(s): J45.909 - Unspecified asthma, uncomplicated Qualifiers: Asthma persistence: persistent Asthma complication type: uncomplicated Qualified Code(s): J45.40 - Moderate persistent asthma, uncomplicated (10) Tinea corporis: Code(s): B35.4 - Tinea corporis (11) Dysuria: Code(s): R30.0 - Dysuria Plan Patient is a 43-year-old female with a history of obesity, chronic skin rash which has been evaluated by dermatology long time ago but no treatment was provided as per patient History of asthma, Iron-deficiency anemia, thrombocytopenia, complaining of bilateral ingrown toenail which is recurrent and is requesting podiatry referral Complaining of pain in her left hand, 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 Panel Fast Today D69.6 - Thrombocytopenia, unspecified, E66.09 - Other obesity due to excess calories, K21.9 - Gastro-esophageal reflux disease without esophagitis, Z00.01 - Encounter for general adult medical examination with abnormal findings, Z91.09 - Other allergy status, other than to drugs and biological substances TSH reflex Free T4 Today D69.6 - Thrombocytopenia, unspecified, E66.09 - Other obesity due to excess calories, K21.9 - Gastro-esophageal reflux disease without esophagitis, Z00.01 - Encounter for general adult medical examination with abnormal findings, Z91.09 - Other allergy status, other than to drugs and biological substances Complete Blood Count Auto Diff Today D69.6 - Thrombocytopenia, unspecified, E66.09 - Other obesity due to excess calories, K21.9 - Gastro-esophageal reflux disease without esophagitis, Z00.01 - Encounter for general adult medical examination with abnormal findings, Z91.09 - Other allergy status, other than to drugs and biological substances Lipid Panel Today D69.6 - Thrombocytopenia, unspecified, E66.09 - Other obesity due to excess calories, K21.9 - Gastro-esophageal reflux disease without esophagitis, Z00.01 - Encounter for general adult medical examination with abnormal findings, Z91.09 - Other allergy status, other than to drugs and biological substances AMB Urinalysis Automated Today Z13.9 - Encounter for screening, unspecified Referrals Podiatry Referral L60.0 - Ingrowing nail Hand Surgery Referral M79.641 - Pain in right hand Medications: New terbinafine HCl 250 mg PO DAILY 14 tabs 0RF Skin rash Changed From budesonide-formoterol 80-4.5 mcg/actuation (Symbicort) 2 puffs inhalation BID 30 days 10.2 grams 0RF To fluticasone propion-salmeterol 100-50 mcg/dose 1 inh inhalation BID 60 ea 3RF 30 days Refilled omeprazole 40 mg PO DAILY 90 caps 1RF Discontinued ibuprofen Discontinued Reason: Doctor's Order 600 mg PO Q8H PRN 20 tabs 0RF pain albuterol sulfate 90 mcg/actuation Discontinued Reason: Doctor's Order 1 inh inhalation QID PRN 6.7 grams 0RF shortness of breath or wheezing benzonatate Discontinued Reason: Doctor's Order 100 mg PO TID PRN 30 caps 0RF cough budesonide-formoterol 80-4.5 mcg/actuation (Symbicort) Discontinued Reason: Doctor's Order 2 puffs inhalation BID 30 days 10.2 grams 0RF J45.909 - Unspecified asthma, uncomplicated Coding Level of Care Code Est Pt Prev Care 40-64y(27772) Diagnoses Encounter for general adult medical examination with abnormal findings Z00.01 Thrombocytopenia D69.6 Class 2 obesity due to excess calories without serious comorbidity with body mass index (BMI) of 35.0 to 35.9 in adult E66.09; Z68.35 Obesity classification: adult class 2 (BMI 35 - 39.9) Serious obesity comorbidity presence: without serious comorbidity Body mass index: BMI 35.0-35.9 Environmental allergies Z91.09 Chronic GERD K21.9 Other iron deficiency anemia D50.8 Iron deficiency anemia type: other iron deficiency Hand pain, right M79.641 Ingrown toenail of both feet L60.0 Moderate persistent asthma without complication J45.40 Asthma persistence: persistent Asthma complication type: uncomplicated Tinea corporis B35.4 Dysuria R30.0 Additional Codes WHIT-7 Assessment Billing - WHIT-7 Assessment Tool: WHIT-7 Assessment 40225 ([id number])
== END 2023-12-06 14:25 | disposition home or self-care (01) ==
PROVIDERS: Visit Provider Internal Medicine
DX: Z00.00 Encounter for general adult medical examination without abnormal findings (principal); D69.6 Thrombocytopenia, unspecified; E66.09 Other obesity due to excess calories; Z68.35 Body mass index [BMI] 35.0-35.9, adult; Z91.09 Other allergy status, other than to drugs and biological substances; K21.9 Gastro-esophageal reflux disease without esophagitis; D50.8 Other iron deficiency anemias; M79.641 Pain in right hand; L60.0 Ingrowing nail; J45.40 Moderate persistent asthma, uncomplicated; B35.4 Tinea corporis; R30.0 Dysuria
CPT/HCPCS: 81003; 99396

== ENCOUNTER 2023-12-08 09:03 | Emergency (ER) | payer OTHER, SELFPAY ==
[2023-12-08 09:20] VITALS: BP 120/75; PULSE 81; RESP 16; TEMP 36.8; O2SAT 99; BMI 28.6
[2023-12-08] MEDS: Lidocaine HCl 1 % MPF 5 ML VIAL INFILTRATI (10:17)
--- NOTE | 2023-12-08 10:27 | ED_ITS ---
HPI - Skin/Abscess/Foreign Bdy General Chief complaint: Skin/Abscess/Foreign Body Stated complaint: Ingrown Nail R Toe Time Seen by Provider: 12/08/23 09:30 Source: patient, RN notes reviewed and old records reviewed Mode of arrival: ambulatory History of Present Illness HPI narrative: 43-year-old female with a past medical history of thrombocytopenia, anemia, GERD, asthma, iron deficiency anemia, presenting to ED complaining of painful ingrown toenail to right great toe x few days. Reports this is reoccurring. Denies numbness, tingling, drainage from area, fever. Denies following up with Podiatry Related Data Previous Rx's Medication Instructions Recorded cetirizine 10 mg capsule 10 mg PO DAILY PRN allergy 09/10/21 symptoms 90 days #90 caps albuterol sulfate 90 mcg/actuation 1 puff PO QID PRN for dyspnea #8.5 11/08/22 aerosol inhaler grams fluticasone 100 mcg-salmeterol 50 1 inh inhalation BID 30 days #60 ea 12/06/23 mcg/dose blistr powdr for inhalation omeprazole 40 mg capsule,delayed 40 mg PO DAILY #90 caps 12/06/23 release terbinafine HCl 250 mg tablet 250 mg PO DAILY Skin rash #14 tabs 12/06/23 bacitracin 500 unit/gram topical 1 appl topical BID #30 grams 12/08/23 ointment Allergies Allergy/AdvReac Type Severity Reaction Status Date / Time morphine [Morphine] Allergy Intermediate VOMITING, Verified 12/06/23 13:50 N/V Penicillins Allergy Unknown Rash Verified 12/06/23 13:50 Review of Systems Review of Systems: Constitutional: No Fever, No Chills ENT/Mouth: No Ear Pain, No Nasal Congestion, No sore throat, No Rhinorrhea, No Swallowing Difficulty Cardiovascular: No Chest Pain, No SOB Respiratory: No Cough, No Sputum, No Wheezing Gastrointestinal: No Nausea, No Vomiting, No Abdominal pain Musculoskeletal: No joint pain, No Myalgias, No Joint Swelling Skin: No Skin Lesions, No rash, +ingrown toenail Neuro: No Weakness, No Numbness, No Paresthesias Yes all other systems are reviewed and are negative Constitutional: Constitutional: Reports as per [facility] Past Medical History Attestation statement: The following information was validated with the patient. Source: old records reviewed Medical History Dysfunctional uterine bleeding Neck pain on left side Paresthesia of hand Chronic GERD Asthma, moderate Iron deficiency anemia Surgical History H/O tubal ligation History of carpal tunnel surgery of right wrist Family History Family History Father Colon cancer Mother Diabetes mellitus Brother No problems noted. Brother No problems noted. Son No problems noted. Daughter No problems noted. Social History Social History Housing: House Alcohol intake: never Patient Tobacco Use Status: Former Tobacco user Tobacco use type: Cigarette Years Smoked: 20 years e-Cigarette/Vaping Use: Never Used Use of substances other than those prescribed or required for medical reasons: Yes Substance Use Type: Marijuana Advance Directives: No Advance Directives Information Provided: No Current occupational status: employed Sexual orientation: Straight/Heterosexual Cognitive needs: No Hearing needs: No Vision needs: No Physical Exam Vital Signs: Vital Signs: Last Vital Signs Temp 98.3 F 12/08/23 09:20 Pulse 81 12/08/23 09:20 Resp 16 12/08/23 09:20 BP 120/75 12/08/23 09:20 Pulse Ox 99 12/08/23 09:20 O2 Del Method Room Air 12/08/23 09:20 BMI result Body Mass Index 28.6 Const: General: cooperative, healthy appearing and no acute distress Limitations: no limitations HEENT: Head: Yes normal to inspection and Yes atraumatic Ears: hearing grossly normal bilaterally General nose exam: Normal external nose present Face and sinus: Yes normal facial exam Eyes: General: appearance normal, both eyes and all related structures EOM: EOMs intact bilaterally Neck: Neck: Yes normal visual inspection Resp: Effort & Inspection: normal respiratory effort and no respiratory distress Cardio: Rate: regular rate Skin: Other: + ingrown toenail medial aspect of right great toe. + surrounding swelling /erythema and slight pus drainage Rashes: no rashes Wounds: no wounds Extrem: General: Yes normal to inspection Medications Administered Discontinued Medications Generic Name Dose Route Start Last Admin Trade Name Freq PRN Reason Stop Dose Admin Lidocaine HCl 5 ml 12/08/23 09:45 12/08/23 10:17 Lidocaine Hcl 1 % Mpf 5 Ml Vial INFILTRATI 12/08/23 09:46 5 ml ONCE ONE Administration Medical Decision Making Medical Decision Making MDM Narrative: 43-year-old female with a past medical history of thrombocytopenia, anemia, GERD, asthma, iron deficiency anemia, presenting to ED complaining of painful ingrown toenail to right great toe x few days. On exam VSS, NAD, nontoxic appearing, PE as above. Low suspicion for cellulitis/abscess Will I&D Please refer to course for remaining clinical decision making, interpretation of labs/imaging results, and discussions with consultants and/or family members. Results discussed with patient including worrisome signs and symptoms and strict return precautions, and when to return to the emergency department. They verbalized understanding and feel safe for discharge at this time. Differential Diagnosis Differential Diagnoses: The differential diagnosis associated with the presentation includes As above External Record Review External record reviewed: Inpatient record, Office record, Outpatient record, Prior outpatient labs, Prior outpatient radiology, Primary care record and Outside ED record Tests considered The following testing was considered but not selected: As above Prescription Management I considered prescription management with: Pain Medication Procedures Procedure Narrative Procedure Narrative: Ingrown Toenail Removal: 4 mL of 1% lidocaine, digital block Scissors and nail elevator used No complications Dressing applied Discharge Plan Discharge Clinical Impression: Ingrowing toenail Patient Disposition: Home, Self-Care Instructions: Ingrown Nail (ED) Additional Instructions: Apply topical bacitracin twice daily You need to follow-up with podiatry If area begins to look infected, is red, there is drainage return to the ED Please take Tylenol and Motrin Prescriptions: New bacitracin 500 unit/gram ointment 1 appl topical BID Qty: 30 0RF No Action albuterol sulfate 90 mcg/actuation HFA aerosol inhaler 1 puff PO QID PRN (Reason: for dyspnea) Qty: 8.5 0RF cetirizine 10 mg capsule 10 mg PO DAILY PRN (Reason: allergy symptoms) 90 Days Qty: 90 3RF fluticasone propion-salmeterol 100-50 mcg/dose blister with device 1 inh inhalation BID 30 Days Qty: 60 3RF omeprazole 40 mg capsule,delayed release(DR/EC) 40 mg PO DAILY Qty: 90 1RF terbinafine HCl 250 mg tablet 250 mg PO DAILY Qty: 14 0RF Referrals: Maria R Turner MD [Primary Care Provider] - Og Lares DPM [Physician] - Stand Alone Forms: Work/School Release
[2023-12-08 10:43] VITALS: RESP 16
== END 2023-12-08 10:48 | disposition home or self-care (01) ==
PROVIDERS: Emergency Provider Emergency Medicine; PCP Internal Medicine
DX: L60.0 Ingrowing nail (principal); M79.674 Pain in right toe(s)
CPT/HCPCS: 64450; 99284

== ENCOUNTER 2023-12-14 10:51 | Outpatient (REF) | payer OTHER, SELFPAY ==
[2023-12-14 11:08] LABS: MANUAL DIFF FLAG NO
[2023-12-14 12:00] LABS: Basophils Percent Auto 0.6 % (0-2); Eosinophils Absolute Auto 0.1 X10*3/uL (0.0-0.4); Eosinophils Percent Auto 2.3 % (0-4); Hematocrit 33.8 % (37.0-47.0); Hemoglobin 10.4 g/dl (12.0-16.0); Imm Gran Abs Auto 0.02 X10*3/uL (0.00-0.03); Imm Gran Pct Auto 0.4 % (0.0-0.4); Lymphocytes Absolute Auto 1.9 X10*3/uL (1.2-4.9); Lymphocytes Percent Auto 38.5 % (20-40); Mean Corpuscular HGB Conc 30.8 g/dl (31.0-35.0); Mean Corpuscular Hemoglobin 25.2 pg (27.0-33.0); Mean Platelet Volume 13.4 fL (9.4-12.3); Monocytes Absolute Auto 0.5 X10*3/uL (0.1-1.2); Monocytes Percent Auto 9.4 % (2-11); Neutrophils Absolute Auto 2.3 x10*3/uL (2.0-8.3); Neutrophils Percent Auto 48.8 % (45-73); Platelet Count 177 X10*3/uL (160-400); Red Blood Count 4.12 X10*6/uL (4.20-5.50); Red Cell Distribution Width 15.2 % (11.0-16.0); White Blood Count 4.8 X10*3/uL (4.8-10.8)
[2023-12-14 12:52] LABS: Alanine Aminotransferase 23 U/L (0-31); Albumin Level 4.1 g/dL (3.5-5.0); Alkaline Phosphatase 77 U/L (39-117); Anion Gap 9 (12-20); Aspartate Amino Transferase 21 U/L (5-31); Bilirubin Total 0.8 mg/dL (0.0-1.0); Blood Urea Nitrogen 12 mg/dL (9-16); Calcium 8.1 mg/dL (8.4-10.2); Carbon Dioxide 29 mmol/L (22-29); Chloride 105 mmol/L (96-108); Cholesterol 173 mg/dL (<200); Estimated Glomerular Filt Rate > 60; Glucose Fasting 91 mg/dL (60-99); HDL Cholesterol 49 mg/dL (>40); LDL Cholesterol Calculated 101 mg/dL (<100); Potassium 3.8 mmol/L (3.3-5.1); Sodium 139 mmol/L (135-145); Total Protein 7.4 g/dL (6.5-8.0); Triglycerides 119 mg/dL (<150)
[2023-12-14 13:08] LABS: TSH reflex Free T4 0.97 uIU/mL (0.32-4.0)
== END 2023-12-14 10:52 | disposition home or self-care (01) ==
LOC: HO.LAB 10:51
PROVIDERS: PCP Internal Medicine; Visit Provider Internal Medicine
DX: Z00.01 Encounter for general adult medical examination with abnormal findings (principal); D69.6 Thrombocytopenia, unspecified; E66.09 Other obesity due to excess calories; K21.9 Gastro-esophageal reflux disease without esophagitis; Z91.09 Other allergy status, other than to drugs and biological substances
CPT/HCPCS: 36415; 80053; 80061; 84443; 85025

== ENCOUNTER 2023-12-20 08:21 | Outpatient (AMB) | payer OTHER, SELFPAY ==
--- NOTE | 2023-12-20 08:24 | MHC.PC.OV ---
Vital Signs 12/20/23 08:26 Height 5 ft 5 in Intake Visit Reasons: Discuss Labs~ Allergies morphine [Morphine] Allergy (Intermediate, Verified 12/20/23 08:26) VOMITING, N/V Penicillins Allergy (Unknown, Verified 12/20/23 08:26) Rash Medication List - Last Reconciled 12/20/23 by Maria R Turner MD albuterol sulfate 90 mcg/actuation 1 puff PO QID PRN cetirizine 10 mg PO DAILY PRN 90 days fluticasone propion-salmeterol 100-50 mcg/dose 1 inh inhalation BID 30 days omeprazole 40 mg PO DAILY Tobacco use date assessed: 12/20/23 Dental Screening Dental Screen Date: 12/20/23 Did you have a dental visit in the last 12 months?: No Did you have a dental problem in the last 6 months where you did not have access to dental care?: No Was dental information given to patient?: Patient has dentist HPI Discuss Labs~ HPI Details Patient is 43-year-old female this is a telemedicine video conference to go over her labs and to follow-up on her asthma Patient says that Symbicort co-pay was too high she could not afford that so she is not using it, still feeling short of breath off and on and is requesting just ProAir inhaler which I have sent for her, she declined a course of prednisone. Her CBC shows iron level of 10.4 it was 11.4 last year Patient have heavy menstrual flow, she has not seen OBGYN since early 2021 but has appointment coming up Meanwhile I have sent iron supplement patient is to take that daily as long as she is having heavy menstrual flow I have also sent MiraLax script to avoid constipation She also have appointment coming up with healthcare management and had specialist Tinea corporis is getting better, patient has started using powder wherever she has a rash. Follow-up after the labs in 3 months [facility] Medical History Dysfunctional uterine bleeding Neck pain on left side Paresthesia of hand Chronic GERD Asthma, moderate Iron deficiency anemia Surgical History H/O tubal ligation History of carpal tunnel surgery of right wrist Family History Father Colon cancer Mother Diabetes mellitus Brother No problems noted. Brother No problems noted. Son No problems noted. Daughter No problems noted. Social History Housing: House Alcohol intake: never Patient Tobacco Use Status: Former Tobacco user Tobacco use type: Cigarette Years Smoked: 20 years e-Cigarette/Vaping Use: Never Used Substance Use Type: Marijuana Current occupational status: employed Sexual orientation: Straight/Heterosexual Cognitive needs: No Hearing needs: No Vision needs: No Female Reproductive History Menstrual Age of Menarche: 13 Questionnaire Thrive Questionnaire Date Thrive assessed: 12/06/23 AUDIT C Alcohol Use Questionnaire (AUDIT-C) 1. How often do you have a drink containing alcohol?: Never 3. How often do you have six or more drinks on one occasion?: Never Total Score: 0 Score Reviewed/Action Taken: Yes WHIT-7 AMB Questionnaire WHIT-7 Date WHIT - 7 assessed: 12/06/23 Source: Developed by Drs. Cam Garcia, Lizzie Bridges, Godwin Rodgers and colleagues, with an educational lydia from [employer]. Review of Systems Const Denies chills and Denies fever(s) ENT Denies epistaxis and Denies nasal discharge Card Denies chest pain Resp Denies chest congestion, Denies cough and Denies hemoptysis GI Denies diarrhea and Denies nausea Skin/Breast Denies rash Neuro Reports no additional complaints Psych Reports no additional complaints Endo Reports no additional complaints Physical exam (Primary Care) Tobacco/Smoking Status: Tobacco use Status Tobacco use date assessed 12/20/23 12/20/23 08:27 Patient Tobacco Use Status Former Tobacco user 12/20/23 08:27 Tobacco use type Cigarette 12/20/23 08:27 e-Cigarette/Vaping Use Never Used 12/20/23 08:27 Thrive Assessment: Date of Thrive Assessment Date Thrive assessed 12/06/23 12/20/23 08:27 Telehealth Telehealth Location of provider rendering services: practice address Location of patient: address on file Patient Identification confirmed using: Name, : Yes Telehealth method: video Patient verbally consented to treatment: Yes Patient verbally consented to billing insurance company: Yes Patient informed of any privacy concerns related to visit: Yes Minutes spent on Phone/Video with Pt.: 14 Assessment and Plan Assessment & Plan (1) Iron deficiency anemia: Code(s): D50.9 - Iron deficiency anemia, unspecified Qualifiers: Iron deficiency anemia type: other iron deficiency Qualified Code(s): D50.8 - Other iron deficiency anemias (2) Hand pain, right: Code(s): M79.641 - Pain in right hand (3) Asthma, moderate: Code(s): J45.909 - Unspecified asthma, uncomplicated Qualifiers: Asthma persistence: persistent Asthma complication type: uncomplicated Qualified Code(s): J45.40 - Moderate persistent asthma, uncomplicated (4) Tinea corporis: Code(s): B35.4 - Tinea corporis (5) Heavy menstrual bleeding: Code(s): N92.0 - Excessive and frequent menstruation with regular cycle Qualifiers: Menorrhagia type: with regular cycle Qualified Code(s): N92.0 - Excessive and frequent menstruation with regular cycle Plan Patient is 43-year-old female this is a telemedicine video conference to go over her labs and to follow-up on her asthma Patient says that Symbicort co-pay was too high she could not afford that so she is not using it, still feeling short of breath off and on and is requesting just ProAir inhaler which I have sent for her, she declined a course of prednisone. Her CBC shows iron level of 10.4 it was 11.4 last year Patient have heavy menstrual flow, she has not seen OBGYN since early 2021 but has appointment coming up Meanwhile I have sent iron supplement patient is to take that daily as long as she is having heavy menstrual flow I have also sent MiraLax script to avoid constipation She also have appointment coming up with healthcare management and had specialist Tinea corporis is getting better, patient has started using powder wherever she has a rash. Follow-up after the labs in 3 months Medications: New ferrous sulfate 324 mg PO BID 90 days 180 tabs 0RF polyethylene glycol 3350 (Miralax) 17 grams PO DAILY 90 days 1,530 grams 0RF Refilled albuterol sulfate 90 mcg/actuation 1 puff PO QID PRN 8.5 grams 2RF for dyspnea Coding Level of Care Code Tele Est Pt Level 3 (39152) Diagnoses Other iron deficiency anemia D50.8 Iron deficiency anemia type: other iron deficiency Hand pain, right M79.641 Moderate persistent asthma without complication J45.40 Asthma persistence: persistent Asthma complication type: uncomplicated Tinea corporis B35.4 Menorrhagia with regular cycle N92.0 Menorrhagia type: with regular cycle
== END 2023-12-20 13:06 | disposition home or self-care (01) ==
LOC: HO.HMGC 08:22
PROVIDERS: PCP Internal Medicine; Visit Provider Internal Medicine
DX: D50.8 Other iron deficiency anemias (principal); M79.641 Pain in right hand; J45.40 Moderate persistent asthma, uncomplicated; B35.4 Tinea corporis; N92.0 Excessive and frequent menstruation with regular cycle
CPT/HCPCS: 99213

== ENCOUNTER 2024-01-10 12:52 | Outpatient (AMB) | payer OTHER, SELFPAY ==
[2024-01-10 12:55] VITALS: BP 100/66; BMI 28.6
--- NOTE | 2024-01-10 12:55 | MHC.OFFVIS ---
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 Doing well with no concerns: fungal skin rash treated by her PCP. Started iron supplementations due to her anemia. She tries to eat healthy and stays active with exercise. Regular monthly menses x 4-5d, heavy in the first few days, overall shorter than in the past. Currently is sexually active. She denies vaginal itching and irritation. STI screening offered; she accepts. Denies family history of breast or ovarian. FH colon cancer-father. Last pap smear 2020, negative. Mammogram: 08/2023. [facility] Medical History Dysfunctional uterine bleeding Neck pain on left side Paresthesia of hand Chronic GERD Asthma, moderate Iron deficiency anemia Surgical History H/O tubal ligation History of carpal tunnel surgery of right wrist Family History Father Colon cancer Mother Diabetes mellitus Brother No problems noted. Brother No problems noted. Son No problems noted. Daughter No problems noted. Paternal Aunt History of breast cancer Social History Housing: House Alcohol intake: never Patient Tobacco Use Status: Former Tobacco user Tobacco use type: Cigarette Years Smoked: 20 years e-Cigarette/Vaping Use: Never Used Substance Use Type: Marijuana Current occupational status: employed Sexual orientation: Straight/Heterosexual Cognitive needs: No Hearing needs: No Vision needs: No Female Reproductive History Menstrual Age of Menarche: 13 Duration of menses: 3-5 days Date of last menstrual period: 01/02/24 control method: permanent sterilization Permanent Sterilization: BTL Total pregnancies: 5 Full term: 3 Number of Living Children: 3 Date of last pap smear: 11/23/20 (neg pap and hpv) Date of Mammogram: 08/14/23 (Birad 1) Review of Systems Const All systems reviewed & are unremarkable except as noted in HPI and below Reports as per HPI Eyes Reports no additional complaints ENT Reports no additional complaints Card Reports no additional complaints Resp Reports no additional complaints GI Reports as per HPI and Reports no additional complaints Reports as per HPI Musc Reports no additional complaints Skin/Breast Reports as per HPI Neuro Reports no additional complaints Psych Reports no additional complaints Endo Reports no additional complaints Jorge L/Lymph Reports no additional complaints Aller/Immun Reports no additional complaints Physical Exam Vital Signs: Last Vital Signs BP 100/66 01/10/24 12:55 BMI result Body Mass Index 28.6 Const General: cooperative, healthy appearing, no acute distress, well developed and alert Orientation/consciousness: patient oriented x3 HEENT Head: Yes normal to inspection Eyes General: appearance normal, both eyes and all related structures Neck Neck: Yes normal visual inspection Thyroid: Thyroid normal Chest Chest palpation & inspection: normal inspection of the chest and other (no puckering, dimpling, peau de orange, retraction, discharge, masses) Breast/axilla inspection: normal inspection of the breasts Breast/axilla palpation: normal palpation of the breasts Resp Effort & Inspection: normal respiratory effort GI Inspection: Yes normal to inspection Palpation (GI): Soft to palpation Rectal Exam - Female: deferred Other: Tinea rash extended to the mons pubis region General: Yes bladder normal to palpation External Female Exam: normal external appearance and normal appearance of the urethra Speculum Exam - Vagina: normal appearance of the vagina, normal palpation and normal vaginal discharge Speculum Exam - Cervix: normal appearance of the cervix and normal palpation Bimanual exam- vagina & uterus: normal bimanual exam, normal palpation, uterine size normal, bladder normal to palpation, normal palpation and non-tender Bimanual Exam- Adnexa, other: no masses Skin General skin exam: no rashes or lesions noted Rashes: no rashes Neuro General: patient oriented x3 Cognition (Neuro): normal cognition Extrem General: Yes normal to inspection Psych Attitude: cooperative Thought process: Normal thought process present Assessment & Plan Assessment & Plan (1) Encounter for well woman exam with routine gynecological exam: Code(s): Z01.419 - Encounter for gynecological examination (general) (routine) without abnormal findings (2) Heavy menstrual bleeding: Code(s): N92.0 - Excessive and frequent menstruation with regular cycle Qualifiers: Menorrhagia type: with regular cycle Qualified Code(s): N92.0 - Excessive and frequent menstruation with regular cycle Plan Discussed: Current recommendations for pap smears per ASCCP guidelines. Breast awareness and periodic breast exams. Maintain a healthy lifestyle including a well balanced diet and routine exercise. Follow up with Dr. Turner for other medical concerns. Strongly encouraged her to consider having the Mirena IUD for cycle control. Handout given, advised to call the office if she decides she wants to do the Mirena for a consult visit. Skin rash: Can try Selsun blue shampoo on her skin per recommendations Web ., also consider seeing Dr. Turner again for treatment. Mammogram yearly. Colonoscopy >45, or at risk sooner. Patient verbalizes understanding and agrees to the plan of care. She was given opportunity to ask questions and all questions were answered to the best of my ability. RTO in one year for annual orthotics prosthetics assistant examination. This note is constructed using voice recognition software. While every effort has been made to ensure accuracy, criminal justice program director errors may have been included. Coding Level of Care Code Est Pt Prev Care 40-64y(91398) Diagnoses Encounter for well woman exam with routine gynecological exam Z01.419 Menorrhagia with regular cycle N92.0 Menorrhagia type: with regular cycle
== END 2024-01-10 14:12 | disposition home or self-care (01) ==
PROVIDERS: PCP Internal Medicine; Visit Provider Advanced Practice Midwife
DX: Z01.419 Encounter for gynecological examination (general) (routine) without abnormal findings (principal); N92.0 Excessive and frequent menstruation with regular cycle
CPT/HCPCS: 99396

== ENCOUNTER → 2024-01-10 12:52 | Outpatient (BNVA) | payer OTHER, SELFPAY | PROVIDERS: PCP Internal Medicine; Visit Provider Advanced Practice Midwife | DX: Z01.419 Encounter for gynecological examination (general) (routine) without abnormal findings (principal); N92.0 Excessive and frequent menstruation with regular cycle | CPT/HCPCS: 99396 ==

== ENCOUNTER 2024-01-17 07:54 | Outpatient (AMB) | payer OTHER, SELFPAY ==
--- NOTE | 2024-01-17 08:20 | A.OFFVIS_ITS ---
Intake Vital Signs 01/17/24 08:24 Height 5 ft 5 in Weight 172 lb BMI 28.6 Intake Visit Reasons: N/P left hand pain Intake Note: Genie 43 yr old right hand dominant female presents today for a new patient visit for pain in her left hand. States her pain is between index and middle finger at base of her MCP on volar aspect of hand. Patient reports a painful lump present for about a year, in between her IF and MF at her MCP. States numbness and tingling in her whole hand. Denies injury. No previous tx. 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 She complains of a painful mass between her index & middle finger, which has been present for ~1 year and has been causing her pain. She says she feels pain throughout her hand She also complains of numbness to all digits of her left hand. Symptoms intermittent, but daily, primarily with activity. She reports having a prior right carpal tunnel release in ~2013 She works as a [employer] and says she has discomfort and pain when driving or pushing a wheelchair. N/P left hand pain HPI Details Genie is a 43 year old year old right hand dominant woman who presents with complaints of left hand pain & numbness. She complains of a painful mass in the volar aspect of the 2nd webspace, as well as pain around the base of the left thumb. She says this mass causes her pain and discomfort throughout her hand with use, or when the mass is bumped against something. She also complains of numbness to all digits of her left hand, but primarily affecting the ring & small fingers. Symptoms intermittent, but daily, worse primarily with activities. She has a hx of a right carpal tunnel release in ~2013. 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 She has difficulty pushing heavy wheelchairs and with driving due to her pain & numbness. [facility] Medical History Dysfunctional uterine bleeding Neck pain on left side Paresthesia of hand Chronic GERD Asthma, moderate Iron deficiency anemia Surgical History H/O tubal ligation History of carpal tunnel surgery of right wrist Family History Father Colon cancer Mother Diabetes mellitus Brother No problems noted. Brother No problems noted. Son No problems noted. Daughter No problems noted. 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, [employer], right hand dominant Sexual orientation: Straight/Heterosexual Cognitive needs: No Hearing needs: No Vision needs: No Female Reproductive History Menstrual Age of Menarche: 13 Review of Systems Const All systems reviewed & are unremarkable except as noted in HPI and below Physical Exam Vital Signs: BMI result Body Mass Index 28.6 Const General: cooperative, healthy appearing and no acute distress Orientation/consciousness: patient oriented x3 HEENT Head: Yes normocephalic and Yes atraumatic Eyes EOM: EOMs intact bilaterally Resp Effort & Inspection: normal respiratory effort and able to speak in complete sentences Cardio Jugular venous distension: no JVD Skin General skin exam: turgor normal Rashes: no rashes Neuro General: patient oriented x3 Extrem Other: Evaluation of Right Upper Extremity: The patient is alert, oriented, and in no acute distress Neuro: Median, Ulnar, Radial nerves motor and sensory intact and sensation is normal to the tips of all digits No intrinsic or thenar wasting Vascular: Cap refill brisk ROM: She can make a fist and extend all of her digits. No locking or catching. Skin: No lacerations or abrasions. General: No Ecchymosis. No Erythema or evidence of infection. She has a spherical shaped mass measuring perhaps 6 mm in diameter deep in the volar aspect of the left hand 2nd webspace. The mass is somewhat mobile and mildly tender. No Tinel's sign when palpating the mass. No numbness in the distribution of the 2nd common digital nerve. It is not sitting on either the index or middle flexor tendon sheaths, but rather is in between the metacarpal heads. No overlying skin changes. She also has some mild tenderness over the basal joint of the left thumb. Good active range of motion of the thumb. Radiographs: 3 views of the right hand were taken and viewed by me today in clinic. They show no fractures or dislocations. She has some basal joint arthritis with joint space narrowing, subluxation and early osteophyte formation. Psych Appearance: grossly normal Affect: normal affect Attitude: cooperative Assessment & Plan Assessment & Plan (1) Mass of left hand: Code(s): R22.32 - Localized swelling, mass and lump, left upper limb (2) Mass of left hand: Code(s): R22.32 - Localized swelling, mass and lump, left upper limb (3) Numbness of left hand: Code(s): R20.0 - Anesthesia of skin (4) Osteoarthritis of carpometacarpal joint of left thumb: Code(s): M18.12 - Unilateral primary osteoarthritis of first carpometacarpal joint, left hand Plan Assessment & Plan: 1. Left hand mass In the volar aspect of the 2nd webspace Measuring ~6mm in diameter I educated her about this condition I discussed operative and non-operative treatment options I ordered an MRI, with contrast, of her right hand to better identify this mass before discussing surgery in greater detail 2. Left hand numbness In all digits Symptoms intermittent, but daily, worse with activity I ordered a NCS to assess for peripheral nerve compression She will follow up when completed for review 3. Left basal joint arthritis I educated her about this condition I discussed activity modification, she should limit or avoid any heavy or r epetitive pinching or gripping activities She will follow up when completed for MRI review, as well as review of her NCS. This should be a 30 minute appointment. Scribed for Emmy Lane MD by Lio Ugalde, medical assistant dermatology, on 01/17/24 at 8:46 AM, EST. Orders: Orders NE nerve conduction velocity Today R20.0 - Anesthesia of skin, R20.2 - Paresthesia of skin MR hand RT wo/w con Today R22.32 - Localized swelling, mass and lump, left upper limb Coding Level of Care Code New Pt Level 3 (67991) Diagnoses Mass of left hand R22.32 Numbness of left hand R20.0 Osteoarthritis of carpometacarpal joint of left thumb M18.12
[2024-01-17 08:24] VITALS: BMI 28.6
== END 2024-01-17 08:45 | disposition home or self-care (01) ==
PROVIDERS: PCP Internal Medicine; Visit Provider Orthopaedic Surgery
DX: R22.32 Localized swelling, mass and lump, left upper limb (principal); R20.0 Anesthesia of skin; M18.12 Unilateral primary osteoarthritis of first carpometacarpal joint, left hand
CPT/HCPCS: 99203

== ENCOUNTER 2024-01-17 12:03 | Outpatient (REF) | payer OTHER, SELFPAY ==
--- NOTE | ~2024-01-17 | XR_ITS ---
EXAMINATION: XR HAND, LEFT CLINICAL INFORMATION: Pain. COMPARISON: None available. TECHNIQUE: PA, lateral, and oblique views of the left hand. FINDINGS: Bony alignment and mineralization are normal. There is a neutral ulnar variance. There is moderate osteoarthritic change of the first carpometacarpal joint. No fracture or dislocation is seen. The proximal and distal carpal rows are intact. There is no abnormal bony erosive change. No focal soft tissue swelling, gas or foreign body is seen. XR/XR hand LT min 3V IMPRESSION: 1. No fracture or dislocation is seen. 2. There is no abnormal bone erosion. 3. There is moderate osteoarthritic change of the left first carpometacarpal joint..
== END 2024-01-17 12:04 | disposition home or self-care (01) ==
LOC: HO.HOSX 12:03
PROVIDERS: Visit Provider Orthopaedic Surgery
DX: R22.32 Localized swelling, mass and lump, left upper limb (principal); R20.0 Anesthesia of skin; M18.12 Unilateral primary osteoarthritis of first carpometacarpal joint, left hand
CPT/HCPCS: 73130; 99202

== ENCOUNTER 2024-02-01 14:28 | Outpatient (REF) | payer OTHER, SELFPAY ==
--- NOTE | 2024-02-01 14:32 | EMG_ITS ---
Chief complaint: Left hand numbness Reason for referral: Evaluate for Carpal Tunnel Syndrome Referred by: Dr. Lane Procedure done: Left upper extremity NCS/EMG Precautions and/or limitations: None The limb temperature was monitored continuously and remained between 32-36 degrees C during the performance of the NCS. Nerve Conduction Studies Anti Sensory Summary Table ?Stim Site NR Onset (ms) Norm Onset (ms) Peak (ms) Norm Peak (ms) O-P Amp (?V) Norm O-P Amp Site1 Site2 Delta-0 (ms) Dist (cm) Ishmael (m/s) Norm Ishmael (m/s) Left Median Anti Sensory (2nd Digit) Wrist ? 4.3 5.0 <3.6 15.3 >10 Wrist 2nd Digit 4.3 14.0 33 Left Radial Anti Sensory (Thumb) Forearm ? 1.9 2.1 <3.1 14.8 Forearm Thumb 1.9 0.0 Left Ulnar Anti Sensory (5th Digit) Wrist ? 2.8 3.2 <3.7 15.9 >15.0 Wrist 5th Digit 2.8 14.0 50 Motor Summary Table ?Stim Site NR Onset (ms) Norm Onset (ms) O-P Amp (mV) Norm O-P Amp iAmp (mV) Amp (1st) (%) Site1 Site2 Delta-0 (ms) Dist (cm) Ishmael (m/s) Norm Ishmael (m/s) Left Median Motor (Abd Poll Brev) Wrist ? 7.2 <3.9 9.3 >4.5 11.1 100.0 Elbow Wrist 4.0 18.5 46 >45 Elbow ? 11.2 8.2 9.6 88.2 Left Ulnar Motor (Abd Dig Minimi) Wrist ? 2.9 <3.0 9.7 >5 11.0 100.0 B Elbow Wrist 2.9 18.0 62 >45 B Elbow ? 5.8 8.7 10.3 89.7 A Elbow B Elbow 1.1 10.0 91 >45 A Elbow ? 6.9 8.7 10.3 89.7 EMG ?Side Muscle Nerve Root Ins Act Fibs Psw Amp Dur Poly Recrt Int Pat Comment Left 1stDorInt Ulnar C8-T1 Nml Nml Nml Nml Nml 0 Nml Complete Left FlexCarRad Median C6-7 Nml Nml Nml Nml Nml 0 Nml Complete Left Biceps Musculocut C5-6 Nml Nml Nml Nml Nml 0 Nml Complete Left Triceps Radial C6-7-8 Nml Nml Nml Nml Nml 0 Nml Complete Left Deltoid Axillary C5-6 Nml Nml Nml Nml Nml 0 Nml Complete FINDINGS: Left median motor nerve showed prolonged distal latency, normal amplitude and normal conduction velocity. Left median sensory nerve showed prolonged peak latency. All other nerves tested were within normal. Concentric needle EMG was performed in selected muscles of the left upper extremity. Study did not reveal signs of electric abnormalities as shown in the table below. IMPRESSION: 1. This is an abnormal study. 2. There is electrodiagnostic evidence for left moderate-severe median neuropathy at the wrist, consistent with carpal tunnel syndrome. 3. There is no electrodiagnostic evidence for ulnar neuropathy, brachial plexopathy, or cervical radiculopathy. Thank you for your kind referral. Daniela Mauricio MD, CHRISTIANO Board Certified, [place] Board [employer] and Rehabilitation (ABPMR) Board Certified, [place] Board of Electrodiagnostic Medicine (ABEM) [place] [id number] [facility]
== END 2024-02-01 14:29 | disposition home or self-care (01) ==
LOC: HO.NEURO 14:28
PROVIDERS: PCP Internal Medicine; Visit Provider Orthopaedic Surgery
DX: R20.0 Anesthesia of skin (principal); R20.2 Paresthesia of skin
CPT/HCPCS: 95886; 95909

== ENCOUNTER → 2024-02-01 14:32 | Outpatient (BNV) | payer OTHER, SELFPAY | PROVIDERS: PCP Internal Medicine; Visit Provider Physical Medicine & Rehabilitation | DX: G56.02 Carpal tunnel syndrome, left upper limb (principal); G56.12 Other lesions of median nerve, left upper limb | CPT/HCPCS: 95886; 95909 ==

== ENCOUNTER 2024-02-19 15:03 | Outpatient (REF) | payer OTHER, SELFPAY ==
--- NOTE | ~2024-02-19 | MR_ITS ---
EXAMINATION: MR HAND WITHOUT AND WITH CONTRAST, LEFT CLINICAL INFORMATION: Pain and soft tissue mass at the volar aspect of the second web space. COMPARISON: Left hand radiographs dated 01/17/2024. TECHNIQUE: Multisequence MR imaging of the left hand was obtained before and after the IV administration of 7.5 mL Gadavist contrast on a high-field strength scanner. FINDINGS: BONE: No acute fracture or dislocation. Normal carpal alignment. Articular cartilage loss with small marginal osteophytes and mild subchondral cystic change at the 1st carpometacarpal joint. No concerning lytic or blastic osseous lesion. No postcontrast marrow enhancement. MUSCLES/TENDONS: The visualized flexor and extensor tendons are intact. Along the ulnar aspect of the second flexor digitorum tendon at the level of the interphalangeal joint there is an ovoid focus of slightly increased T2 and isointense T1 signal measuring 0.5 x 0.4 x 0.6 cm. This demonstrates mild homogeneous postcontrast enhancement. This is in the region of the overlying skin markers. LIGAMENTS: Intact collateral ligaments. SOFT TISSUES: No additional soft tissue mass or fluid collection. No significant joint effusion. MR/MR hand LT wo/w con IMPRESSION: 1. Ovoid, mildly enhancing soft tissue mass along the ulnar aspect of the second flexor digitorum tendon at the level of the interphalangeal joint measuring up to 0.6 cm. This is in the region of the overlying skin markers. Differential diagnosis includes a giant cell tumor of the tendon sheath or a fibroma of the tendon sheath. 2. [id number] osteoarthritis at the 1st carpometacarpal joint.
[2024-02-19] MEDS: gadobutroL 7.5 ML VIAL IVPUSH (16:04)
== END 2024-02-19 15:04 | disposition home or self-care (01) ==
LOC: HO.MRI 15:03
PROVIDERS: PCP Internal Medicine; Visit Provider Orthopaedic Surgery
DX: R22.32 Localized swelling, mass and lump, left upper limb (principal)
CPT/HCPCS: 73220; A9585

== ENCOUNTER 2024-08-19 10:46 | Outpatient (REF) | payer OTHER, SELFPAY | END 2024-08-19 10:47 | disposition home or self-care (01) | LOC: HO.MAMMO 10:46 | PROVIDERS: PCP Internal Medicine; Visit Provider Internal Medicine | DX: Z13.89 Encounter for screening for other disorder (principal) ==

== ENCOUNTER 2024-08-28 09:55 | Outpatient (AMB) | payer OTHER, SELFPAY ==
[2024-08-28 09:56] VITALS: BP 110/70; PULSE 86; O2SAT 99; BMI 29.5
--- NOTE | 2024-08-28 09:56 | A.OFFPC_ITS ---
Vital Signs 08/28/24 09:56 Height 5 ft 5 in Weight 177 lb 8 oz BMI 29.5 BP 110/70 Blood Pressure Location Rt brachial Position Sitting Pulse 86 Pulse Source Pulse Oximeter Pulse Oximetry (%) 99 Oxygen Delivery Method Room Air Intake Visit Reasons: mammogram F/U Allergies morphine [Morphine] Allergy (Intermediate, Verified 08/28/24 09:57) VOMITING, N/V Penicillins Allergy (Unknown, Verified 08/28/24 09:57) Rash Medication List - Last Reconciled 08/28/24 by Maria R Turner MD albuterol sulfate 90 mcg/actuation 1 puff PO QID PRN budesonide-formoterol 160-4.5 mcg/actuation (Symbicort) 1 inh inhalation BID cetirizine (Zyrtec) 10 mg PO DAILY 90 days ferrous sulfate 324 mg PO BID 90 days omeprazole 40 mg PO DAILY Tobacco use date assessed: 08/28/24 Dental Screening Dental Screen Date: 08/28/24 Did you have a dental visit in the last 12 months?: Yes Did you have a dental problem in the last 6 months where you did not have access to dental care?: No Was dental information given to patient?: Patient has dentist HPI mammogram F/U HPI Details Patient is a 43-year-old female who was last seen in December came in today to talk about multiple medical problems Patient says that she snores very loud at night, and wake up frequently And then she feels tired all day and feel fatigued She also feel very dry in her mouth and have to take sip of water all night long I am ordering home sleep study for the patient She also have a GERD and is taking omeprazole 40 mg which she is not taking regularly We talked about it and I would recommend that she start taking it regularly, and keep a food diary, avoid the foods which making her symptoms worse Patient says that at time she feels tingling around her breast She went for mammogram and mentioned that, and they said that they can not do the mammogram she need to have doctor's exam 1st Breast exam is benign today, patient will go ahead and book her mammogram Lab order placed Patient is also anemic We need to monitor that Patient need to return in 3 months for follow-up [facility] Medical History Dysfunctional uterine bleeding Neck pain on left side Paresthesia of hand Chronic GERD Asthma, moderate Iron deficiency anemia Surgical History H/O tubal ligation History of carpal tunnel surgery of right wrist Family History Father Colon cancer Mother Diabetes mellitus Brother No problems noted. Brother No problems noted. Son No problems noted. Daughter No problems noted. Paternal Aunt History of breast cancer Social History Housing: House Alcohol intake: never Patient Tobacco Use Status: Former Tobacco user Tobacco use type: Cigarette Years Smoked: 20 years e-Cigarette/Vaping Use: Never Used Substance Use Type: Marijuana service: No Current occupational status: employed Current occupation: [employer], [employer], right hand dominant Sexual orientation: Straight/Heterosexual Cognitive needs: No Hearing needs: No Vision needs: No Female Reproductive History Menstrual Age of Menarche: 13 Questionnaire PHQ-9 Over the last 2 weeks, how often have you been bothered by any of the following problems? 1. Little interest or pleasure in doing things: several days 2. Feeling down, depressed, or hopeless: not at all 3. Trouble falling or staying asleep, or sleeping too much: several days 4. Feeling tired or having little energy: several days 5. Poor appetite or overeating: several days 6. Feeling bad about yourself - or that you are a failure or have let yourself or your family down: not at all 7. Trouble concentrating on things, such as reading the newspaper or watching television: not at all 8. Moving or speaking so slowly that other people could have noticed. Or the opposite - being so fidgety or restless that you have been moving around a lot more than usual: not at all 9. Thoughts that you would be better off or of hurting yourself in some way: not at all Total score: 4 Depression Screening Interpretation: Negative Depression Screening Done: Yes 27163 - PHQ-9 Billing: Yes Source: Developed by Drs. Cam Garcia, Lizzie Bridges, Godwin Rodgers and colleagues, with an educational lydia from [employer]. Thrive Questionnaire Date Thrive assessed: 08/28/24 I am a: Patient What is your living situation today?: I have a steady place to live Within the past 12 months, did the food you bought not last and you didn't have the money to get more?: Never true Within the past 12 months, did you worry whether your food would run out before you got money to buy more?: Never true Do you have trouble paying for medicines?: Yes Do you have trouble getting transportation to medical appointments?: No Do you have trouble paying your heating and electricity bill?: No Do you have trouble taking care of your child, family member or friend?: No Do you have trouble with day-to-day activities such as bathing, preparing meals, shopping, managing finances, etc.?: No Are you interested in more education?: No Please select the resources that you would like help with: None Currently or been in a relationship where the following occur: No concerns reported THRIVE Score: 0 AUDIT C Alcohol Use Questionnaire (AUDIT-C) 1. How often do you have a drink containing alcohol?: Monthly or less 2. How many drinks containing alcohol do you have on a typical day when you are drinking?: 1 or 2 3. How often do you have six or more drinks on one occasion?: Never Total Score: 1 Score Reviewed/Action Taken: Yes WHIT-7 AMB Questionnaire WHIT-7 Date WHIT - 7 assessed: 08/28/24 Feeling nervous, anxious, or on edge: 0 = Not at all Not being able to stop or control worryin = Not at all Worrying too much about different things: 0 = Not at all Trouble relaxin = Several days Being so restless that it is hard to sit still: 1 = Several days Becoming easily annoyed or irritable: 1 = Several days Feeling afraid as if something awful might happen: 0 = Not at all Total WHIT-7 score (0-4 normal; 5-9 mild; 10-14 moderate; 15-21 severe): 3 Source: Developed by Drs. Cam Garcia, Lizzie Bridges, Godwin Rodgers and colleagues, with an educational lydia from [employer]. WHIT-7 Assessment Billing WHIT-7 Assessment Tool: WHIT-7 Assessment 44411 Review of Systems Const Denies chills and Denies fever(s) ENT Denies epistaxis and Denies nasal discharge Card Denies chest pain Resp Denies chest congestion, Denies cough and Denies hemoptysis GI Denies diarrhea and Denies nausea Skin/Breast Denies rash Neuro Reports no additional complaints Psych Reports no additional complaints Endo Reports no additional complaints Physical exam (Primary Care) Vital Signs: Last Vital Signs Pulse 86 08/28/24 09:56 BP 110/70 08/28/24 09:56 Pulse Ox 99 08/28/24 09:56 Oxygen Delivery Method Room Air 08/28/24 09:56 BMI result Body Mass Index 29.5 Tobacco/Smoking Status: Tobacco use Status Tobacco use date assessed 08/28/24 08/28/24 10:05 Patient Tobacco Use Status Former Tobacco user 08/28/24 10:05 Tobacco use type Cigarette 08/28/24 10:05 e-Cigarette/Vaping Use Never Used 08/28/24 10:05 PHQ-9: PHQ-9 Score PHQ-9: Total score 4 08/28/24 10:23 Depression Screening Interpretation: Negative Thrive Assessment: Date of Thrive Assessment Date Thrive assessed 08/28/24 08/28/24 10:05 Currently or been in a relationship where the following occur: No concerns reported Const General: cooperative, comfortable and no acute distress Orientation/consciousness: patient oriented x3 [facility] Head: Yes normocephalic Eyes General: appearance normal, both eyes and all related structures Neck Neck: Yes supple Chest Breast/axilla palpation: normal palpation of the breasts Resp Effort & Inspection: normal respiratory effort, no cough and no stridor Cardio Rhythm: regular rhythm Heart sounds: S1 normal heart sound present and S2 normal heart sound present Skin General skin exam: turgor normal Neuro General: patient oriented x3, tone normal and moves all extremities Extrem Right lower extremity: no edema Left lower extremity: no edema Coding Level of Care Code Est Pt Level 4 (89977) Diagnoses Other iron deficiency anemia D50.8 Iron deficiency anemia type: other iron deficiency Moderate persistent asthma without complication J45.40 Asthma complication type: uncomplicated Asthma persistence: persistent Chronic GERD K21.9 Environmental allergies Z91.09 Class 2 obesity due to excess calories without serious comorbidity with body mass index (BMI) of 35.0 to 35.9 in adult E66.09; Z68.35 Body mass index: BMI 35.0-35.9 Obesity classification: adult class 2 (BMI 35 - 39.9) Serious obesity comorbidity presence: without serious comorbidity Loud snoring R06.83 Daytime somnolence R40.0 Other fatigue R53.83 Fatigue type: other Additional Codes WHIT-7 Assessment Billing - WHIT-7 Assessment Tool: WHIT-7 Assessment 58200 ([id number]) Assessment & Plan Assessment & Plan (1) Iron deficiency anemia: Code(s): D50.9 - Iron deficiency anemia, unspecified Category: Medical Qualifiers: Iron deficiency anemia type: other iron deficiency Qualified Code(s): D50.8 - Other iron deficiency anemias (2) Asthma, moderate: Code(s): J45.909 - Unspecified asthma, uncomplicated Category: Medical Qualifiers: Asthma complication type: uncomplicated Asthma persistence: persistent Qualified Code(s): J45.40 - Moderate persistent asthma, uncomplicated (3) Chronic GERD: Code(s): K21.9 - Gastro-esophageal reflux disease without esophagitis Category: Medical (4) Environmental allergies: Code(s): Z91.09 - Other allergy status, other than to drugs and biological substances Category: Medical (5) Obesity due to excess calories: Code(s): E66.09 - Other obesity due to excess calories Category: Medical Qualifiers: Body mass index: BMI 35.0-35.9 Obesity classification: adult class 2 (BMI 35 - 39.9) Serious obesity comorbidity presence: without serious comorbidity Qualified Code(s): E66.09 - Other obesity due to excess calories; Z68.35 - Body mass index [BMI] 35.0-35.9, adult (6) Loud snoring: Code(s): R06.83 - Snoring Category: Medical (7) Daytime somnolence: Code(s): R40.0 - Somnolence Category: Medical (8) Fatigue: Code(s): R53.83 - Other fatigue Category: Medical Qualifiers: Fatigue type: other Qualified Code(s): R53.83 - Other fatigue Plan Patient is a 43-year-old female who was last seen in December came in today to talk about multiple medical problems Patient says that she snores very loud at night, and wake up frequently And then she feels tired all day and feel fatigued She also feel very dry in her mouth and have to take sip of water all night long I am ordering home sleep study for the patient She also have a GERD and is taking omeprazole 40 mg which she is not taking regularly We talked about it and I would recommend that she start taking it regularly, and keep a food diary, avoid the foods which making her symptoms worse Patient says that at time she feels tingling around her breast She went for mammogram and mentioned that, and they said that they can not do the mammogram she need to have doctor's exam 1st Breast exam is benign today, patient will go ahead and book her mammogram Lab order placed Patient is also anemic We need to monitor that Patient need to return in 3 months for follow-up Orders: Orders Comprehensive Met. Panel Today D50.8 - Other iron deficiency anemias, E66.09 - Other obesity due to excess calories, J45.40 - Moderate persistent asthma, uncomplicated, K21.9 - Gastro-esophageal reflux disease without esophagitis, Z68.35 - Body mass index [BMI] 35.0-35.9, adult, Z91.09 - Other allergy status, other than to drugs and biological substances TSH reflex Free T4 Today D50.8 - Other iron deficiency anemias, E66.09 - Other obesity due to excess calories, J45.40 - Moderate persistent asthma, uncomplicated, K21.9 - Gastro-esophageal reflux disease without esophagitis, Z68.35 - Body mass index [BMI] 35.0-35.9, adult, Z91.09 - Other allergy status, other than to drugs and biological substances Complete Blood Count Auto Diff Today D50.8 - Other iron deficiency anemias, E66.09 - Other obesity due to excess calories, J45.40 - Moderate persistent asthma, uncomplicated, K21.9 - Gastro-esophageal reflux disease without esophagitis, Z68.35 - Body mass index [BMI] 35.0-35.9, adult, Z91.09 - Other allergy status, other than to drugs and biological substances Vitamin D 25-OH (D2 and D3) Today D50.8 - Other iron deficiency anemias, E66.09 - Other obesity due to excess calories, J45.40 - Moderate persistent asthma, uncomplicated, K21.9 - Gastro-esophageal reflux disease without esophagitis, Z68.35 - Body mass index [BMI] 35.0-35.9, adult, Z91.09 - Other allergy status, other than to drugs and biological substances RT home sleep study Today R06.83 - Snoring, R40.0 - Somnolence, R53.83 - Other fatigue
== END 2024-08-28 10:26 | disposition home or self-care (01) ==
PROVIDERS: PCP Internal Medicine; Visit Provider Internal Medicine
DX: D50.8 Other iron deficiency anemias (principal); J45.40 Moderate persistent asthma, uncomplicated; K21.9 Gastro-esophageal reflux disease without esophagitis; Z91.09 Other allergy status, other than to drugs and biological substances; E66.09 Other obesity due to excess calories; Z68.35 Body mass index [BMI] 35.0-35.9, adult; R06.83 Snoring; R40.0 Somnolence; R53.83 Other fatigue

== ENCOUNTER → 2024-08-28 09:55 | Outpatient (BNVA) | payer OTHER, SELFPAY | PROVIDERS: PCP Internal Medicine; Visit Provider Internal Medicine | DX: D50.8 Other iron deficiency anemias (principal); J45.40 Moderate persistent asthma, uncomplicated; K21.9 Gastro-esophageal reflux disease without esophagitis; Z91.09 Other allergy status, other than to drugs and biological substances; E66.09 Other obesity due to excess calories; Z68.35 Body mass index [BMI] 35.0-35.9, adult; Z71.3 Dietary counseling and surveillance; R06.83 Snoring; R40.0 Somnolence; R53.83 Other fatigue | CPT/HCPCS: 96127; 99212 ==

== ENCOUNTER 2024-08-28 10:27 | Outpatient (REF) | payer OTHER, SELFPAY ==
[2024-08-28 13:13] LABS: MANUAL DIFF FLAG NO
[2024-08-28 13:52] LABS: Basophils Percent Auto 0.4 % (0-2); Eosinophils Absolute Auto 0.1 X10*3/uL (0.0-0.4); Eosinophils Percent Auto 2.6 % (0-4); Hematocrit 36.9 % (37.0-47.0); Hemoglobin 11.8 g/dl (12.0-16.0); Imm Gran Abs Auto 0.02 X10*3/uL (0.00-0.03); Imm Gran Pct Auto 0.4 % (0.0-0.4); Lymphocytes Absolute Auto 1.2 X10*3/uL (1.2-4.9); Lymphocytes Percent Auto 22.6 % (20-40); Mean Corpuscular Hemoglobin 28.1 pg (27.0-33.0); Mean Corpuscular Volume 87.9 fL (80.0-98.0); Mean Platelet Volume 13.2 fL (9.4-12.3); Monocytes Absolute Auto 0.5 X10*3/uL (0.1-1.2); Monocytes Percent Auto 9.9 % (2-11); Neutrophils Absolute Auto 3.4 x10*3/uL (2.0-8.3); Neutrophils Percent Auto 64.1 % (45-73); Platelet Count 175 X10*3/uL (160-400); Red Cell Distribution Width 13.7 % (11.0-16.0); White Blood Count 5.4 X10*3/uL (4.8-10.8)
[2024-08-28 14:25] LABS: Alanine Aminotransferase 64 U/L (0-31); Albumin Level 4.2 g/dL (3.5-5.0); Alkaline Phosphatase 72 U/L (39-117); Anion Gap 10 (12-20); Aspartate Amino Transferase 43 U/L (5-31); Blood Urea Nitrogen 11 mg/dL (9-16); Calcium 9.3 mg/dL (8.4-10.2); Carbon Dioxide 25 mmol/L (22-29); Chloride 108 mmol/L (96-108); Estimated Glomerular Filt Rate > 60; Glucose Random 130 mg/dL (60-115); Potassium 3.9 mmol/L (3.3-5.1); Sodium 139 mmol/L (135-145); Total Protein 7.6 g/dL (6.5-8.0)
[2024-08-28 14:27] LABS: TSH reflex Free T4 1.05 uIU/mL (0.32-4.0)
[2024-09-01 16:58] LABS: Vitamin D 25-OH, D2 <4 ng/mL; Vitamin D 25-OH, D3 36 ng/mL; Vitamin D 25-OH, Total 36 ng/mL (30-100)
== END 2024-08-28 10:28 | disposition home or self-care (01) ==
LOC: HO.HMGCLDS 10:27
PROVIDERS: PCP Internal Medicine; Visit Provider Internal Medicine
DX: D50.8 Other iron deficiency anemias (principal); J45.40 Moderate persistent asthma, uncomplicated; K21.9 Gastro-esophageal reflux disease without esophagitis; Z91.09 Other allergy status, other than to drugs and biological substances; E66.09 Other obesity due to excess calories; Z68.35 Body mass index [BMI] 35.0-35.9, adult
CPT/HCPCS: 36415; 80053; 82306; 84443; 85025

== ENCOUNTER 2024-09-28 10:22 | Outpatient (REF) | payer OTHER, SELFPAY ==
--- NOTE | ~2024-09-28 | MM_ITS ---
EXAMINATION: MM SCREENING DIGITAL BREAST TOMOSYNTHESIS, BILATERAL CLINICAL INFORMATION: Screening. Asymptomatic. COMPARISON: Mammography: Comparison is made with available priors TECHNIQUE: Digital breast mammography with tomosynthesis is performed in both the craniocaudal and mediolateral oblique views along with computer-aided detection (CAD). FINDINGS: The breasts are heterogeneously dense, which may obscure small masses (ACR BI-RADS breast composition Category c). There are no significant masses, abnormal calcifications, or other abnormalities. MM/MM tomosynthesis screening BI IMPRESSION: No mammographic evidence of malignancy. ASSESSMENT: BI-RADS BI-RADS 1 - Negative RECOMMENDATION: Routine annual mammography screening. 1 year F/U This examination should not preclude the clinical evaluation of a suspicious palpable abnormality. This patient's information was entered into a reminder system with a target due date for their next mammogram. Electronically signed by: Gege Jc DO 10/08/2024 11:06 AM [facility]
== END 2024-09-28 10:23 | disposition home or self-care (01) ==
LOC: HO.MAMMO 10:22
PROVIDERS: PCP Internal Medicine; Visit Provider Internal Medicine
DX: Z12.31 Encounter for screening mammogram for malignant neoplasm of breast (principal)
CPT/HCPCS: 77063; 77067

== ENCOUNTER → 2024-09-28 10:30 | Outpatient (BNV) | payer OTHER, SELFPAY | PROVIDERS: PCP Internal Medicine; Visit Provider Internal Medicine | DX: Z12.31 Encounter for screening mammogram for malignant neoplasm of breast (principal) | CPT/HCPCS: 77063; 77067 ==

== ENCOUNTER 2024-12-13 14:16 | Outpatient (AMB) | payer OTHER, SELFPAY ==
--- NOTE | 2024-12-13 14:21 | MHC.PC.OV ---
Vital Signs 12/13/24 14:23 Height 5 ft 5 in Weight 175 lb 6 oz BMI 29.2 BP 120/66 Blood Pressure Location Rt brachial Position Sitting Pulse 86 Pulse Source Pulse Oximeter Pulse Oximetry (%) 97 Oxygen Delivery Method Room Air Intake Visit Reasons: Annual PE Allergies morphine [Morphine] Allergy (Intermediate, Verified 12/13/24 14:26) VOMITING, N/V Penicillins Allergy (Unknown, Verified 12/13/24 14:26) Rash Medication List - Last Reconciled 12/13/24 by Maria R Turner MD albuterol sulfate 90 mcg/actuation 1 puff PO QID PRN budesonide-formoterol 160-4.5 mcg/actuation (Symbicort) 1 inh inhalation BID cetirizine (Zyrtec) 10 mg PO DAILY 90 days ferrous sulfate 324 mg PO BID 90 days omeprazole 40 mg PO DAILY Tobacco use date assessed: 12/13/24 Dental Screening Dental Screen Date: 12/13/24 Did you have a dental visit in the last 12 months?: Yes Did you have a dental problem in the last 6 months where you did not have access to dental care?: No Was dental information given to patient?: Patient has dentist HPI Annual PE HPI Details Physical exam appointment - The patient is a 44-year-old female presenting with concerns about elevated blood sugar readings. Patient is prediabetic without diagnosis of diabetes - Reports elevated blood glucose levels during episodes of shakiness, with specific readings of 311 mg/dL, 305 mg/dL, and 295 mg/dL. Used [id number] glucometer - Symptoms manifest as shakiness in hands and knees, prompting self-monitoring before meals which demonstrates stable readings. - Reports chronic fatigue and low energy, despite implementing sleep aids and iron supplements - No sleep study completed; cited aversion to using potential sleep apnea treatment equipment. Order was placed but patient never picked up the equipment and she does not want to pursue - Asthma managed effectively regarding nocturnal issues, except occasional mild coughing episodes. 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 Health Maintenance - Flu vaccine administered with patient's job. - Mammogram completed in August. - OBGYN appointment required; not recently consulted. Patient will give them a call [facility] - Asthma successfully managed, reports improvement in symptoms. - Encouraged to schedule and complete pending sleep study to explore fatigue cause. - Upcoming COVID-19 vaccination discussed. 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 - Book an appointment with OBGYN for annual exam. - Consider setting up a sleep study to assess possible sleep apnea. - Continue taking current medications as prescribed. Review of Systems - General: Reports feeling consistently fatigued and low energy. - Cardiovascular: Reports intermittent shakiness. - Respiratory: Denies recent asthma exacerbations; reports occasional nocturnal coughing. - Musculoskeletal: Reports pain in knees and shoulder. - Gastrointestinal: Reports ongoing GERD; managed with medication. - Neurological: No headaches no dizziness - Ear nose throat: No sore throat no hearing difficulty no ear pain - Endocrine: No polyuria polydipsia no heat intolerance - Genitourinary: No dysuria - Skin: No new complaints Physical Exam General: Cooperative, healthy appearing, comfortable, no acute distress Orientation: Patient oriented x3 Limitations: None Head: Normal to inspection Ears: Within normal limit visually Nose: Normal external nose present Face and sinus: Normal facial exam Eyes: Appearance normal, extraocular movement intact pupils reactive Neck: Normal visual inspection and supple Respiratory: Normal respiratory effort and able to speak in complete sentences. Clear to auscultation, no stridor Breast exam through OBGYN as per patient Cardiovascular: S1 and S2 GI: Normal to inspection. Soft to palpation and nontender Skin: Turgor normal, no acute findings Neuro: Patient oriented x3, motor sensory intact, balance intact, tandem pass Extremities: Knees are still bothering the patient, otherwise normal to inspection [facility] Medical History Dysfunctional uterine bleeding Neck pain on left side Paresthesia of hand Chronic GERD Asthma, moderate Iron deficiency anemia Surgical History H/O tubal ligation History of carpal tunnel surgery of right wrist Family History Father Colon cancer Mother Diabetes mellitus Brother No problems noted. Brother No problems noted. Son No problems noted. Daughter No problems noted. 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 1. Little interest or pleasure in doing things: not at all 2. Feeling down, depressed, or hopeless: not at all 3. Trouble falling or staying asleep, or sleeping too much: several days 4. Feeling tired or having little energy: several days 5. Poor appetite or overeating: not at all 6. Feeling bad about yourself - or that you are a failure or have let yourself or your family down: not at all 7. Trouble concentrating on things, such as reading the newspaper or watching television: not at all 8. Moving or speaking so slowly that other people could have noticed. Or the opposite - being so fidgety or restless that you have been moving around a lot more than usual: not at all 9. Thoughts that you would be better off or of hurting yourself in some way: not at all Total score: 2 Depression Screening Interpretation: Negative Depression Screening Done: Yes 33435 - PHQ-9 Billing: Yes Source: Developed by Drs. Cam Garcia, Lizzie Bridges, Godwin Rodgers and colleagues, with an educational lydia from [employer]. Thrive Questionnaire Date Thrive assessed: 12/13/24 I am a: Patient What is your living situation today?: I have a steady place to live Within the past 12 months, did the food you bought not last and you didn't have the money to get more?: Never true Within the past 12 months, did you worry whether your food would run out before you got money to buy more?: Never true Do you have trouble paying for medicines?: No Do you have trouble getting transportation to medical appointments?: No Do you have trouble paying your heating and electricity bill?: No Do you have trouble taking care of your child, family member or friend?: No Do you have trouble with day-to-day activities such as bathing, preparing meals, shopping, managing finances, etc.?: No Are you currently unemployed and looking for a job?: No Are you interested in more education?: No Please select the resources that you would like help with: None Currently or been in a relationship where the following occur: No concerns reported THRIVE Score: 0 AUDIT C Alcohol Use Questionnaire (AUDIT-C) 1. How often do you have a drink containing alcohol?: Monthly or less 2. How many drinks containing alcohol do you have on a typical day when you are drinking?: 1 or 2 3. How often do you have six or more drinks on one occasion?: Never Total Score: 1 Score Reviewed/Action Taken: Yes WHIT-7 AMB Questionnaire WHIT-7 Date WHIT - 7 assessed: 12/13/24 Feeling nervous, anxious, or on edge: 0 = Not at all Not being able to stop or control worryin = Not at all Worrying too much about different things: 0 = Not at all Trouble relaxin = Several days Being so restless that it is hard to sit still: 1 = Several days Becoming easily annoyed or irritable: 1 = Several days Feeling afraid as if something awful might happen: 0 = Not at all Total WHIT-7 score (0-4 normal; 5-9 mild; 10-14 moderate; 15-21 severe): 3 Source: Developed by Drs. Cam Garcia, Lizzie Bridges, Godwin Rodgers and colleagues, with an educational lydia from [employer]. WHIT-7 Assessment Billing WHIT-7 Assessment Tool: WHIT-7 Assessment 98601 Physical exam (Primary Care) Vital Signs: Last Vital Signs Pulse 86 12/13/24 14:23 BP 120/66 12/13/24 14:23 Pulse Ox 97 12/13/24 14:23 Oxygen Delivery Method Room Air 12/13/24 14:23 BMI result Body Mass Index 29.2 Tobacco/Smoking Status: Tobacco use Status Tobacco use date assessed 12/13/24 12/13/24 14:26 Patient Tobacco Use Status Former Tobacco user 12/13/24 14:22 Tobacco use type Cigarette 12/13/24 14:22 e-Cigarette/Vaping Use Never Used 12/13/24 14:22 PHQ-9: PHQ-9 Score PHQ-9: Total score 2 12/13/24 14:26 Depression Screening Interpretation: Negative Thrive Assessment: Date of Thrive Assessment Date Thrive assessed 12/13/24 12/13/24 14:26 Currently or been in a relationship where the following occur: No concerns reported Coding Level of Care Code Est Pt Level 4 (86703) Est Pt Prev Care 40-64y(45311) Diagnoses Encounter for general adult medical examination with abnormal findings Z00.01 Thrombocytopenia D69.6 Class 2 obesity due to excess calories without serious comorbidity with body mass index (BMI) of 35.0 to 35.9 in adult E66.09; Z68.35 Body mass index: BMI 35.0-35.9 Obesity classification: adult class 2 (BMI 35 - 39.9) Serious obesity comorbidity presence: without serious comorbidity Environmental allergies Z91.09 Chronic GERD K21.9 LFT elevation R79.89 Other iron deficiency anemia D50.8 Iron deficiency anemia type: other iron deficiency Moderate persistent asthma without complication J45.40 Asthma complication type: uncomplicated Asthma persistence: persistent Daytime somnolence R40.0 Additional Codes WHIT-7 Assessment Billing - WHIT-7 Assessment Tool: WHIT-7 Assessment 89994 ([id number]) PHQ-9 - 14885 - PHQ-9 Billing: Yes ([id number]) Assessment & Plan Assessment & Plan (1) Encounter for general adult medical examination with abnormal findings: Code(s): Z00.01 - Encounter for general adult medical examination with abnormal findings Category: Medical (2) Thrombocytopenia: Code(s): D69.6 - Thrombocytopenia, unspecified Category: Medical (3) Obesity due to excess calories: Code(s): E66.09 - Other obesity due to excess calories Category: Medical Qualifiers: Body mass index: BMI 35.0-35.9 Obesity classification: adult class 2 (BMI 35 - 39.9) Serious obesity comorbidity presence: without serious comorbidity Qualified Code(s): E66.09 - Other obesity due to excess calories; Z68.35 - Body mass index [BMI] 35.0-35.9, adult (4) Environmental allergies: Code(s): Z91.09 - Other allergy status, other than to drugs and biological substances Category: Medical (5) Chronic GERD: Code(s): K21.9 - Gastro-esophageal reflux disease without esophagitis Category: Medical (6) LFT elevation: Code(s): R79.89 - Other specified abnormal findings of blood chemistry Category: Medical (7) Iron deficiency anemia: Code(s): D50.9 - Iron deficiency anemia, unspecified Category: Medical Qualifiers: Iron deficiency anemia type: other iron deficiency Qualified Code(s): D50.8 - Other iron deficiency anemias (8) Asthma, moderate: Code(s): J45.909 - Unspecified asthma, uncomplicated Category: Medical Qualifiers: Asthma complication type: uncomplicated Asthma persistence: persistent Qualified Code(s): J45.40 - Moderate persistent asthma, uncomplicated (9) Daytime somnolence: Code(s): R40.0 - Somnolence Category: Medical Plan Physical exam appointment - The patient is a 44-year-old female presenting with concerns about elevated blood sugar readings. Patient is prediabetic without diagnosis of diabetes - Reports elevated blood glucose levels during episodes of shakiness, with specific readings of 311 mg/dL, 305 mg/dL, and 295 mg/dL. Used [id number] glucometer - Symptoms manifest as shakiness in hands and knees, prompting self-monitoring before meals which demonstrates stable readings. - Reports chronic fatigue and low energy, despite implementing sleep aids and iron supplements - No sleep study completed; cited aversion to using potential sleep apnea treatment equipment. Order was placed but patient never picked up the equipment and she does not want to pursue - Asthma managed effectively regarding nocturnal issues, except occasional mild coughing episodes. 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 Health Maintenance - Flu vaccine administered with patient's job. - Mammogram completed in August. - OBGYN appointment required; not recently consulted. Patient will give them a call [facility] - Asthma successfully managed, reports improvement in symptoms. - Encouraged to schedule and complete pending sleep study to explore fatigue cause. - Upcoming COVID-19 vaccination discussed. 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 - Book an appointment with OBGYN for annual exam. - Consider setting up a sleep study to assess possible sleep apnea. - Continue taking current medications as prescribed. Orders: Orders Complete Blood Count Auto Diff Today D69.6 - Thrombocytopenia, unspecified, E66.09 - Other obesity due to excess calories, K21.9 - Gastro-esophageal reflux disease without esophagitis, R79.89 - Other specified abnormal findings of blood chemistry, Z00.01 - Encounter for general adult medical examination with abnormal findings, Z68.35 - Body mass index [BMI] 35.0-35.9, adult, Z91.09 - Other allergy status, other than to drugs and biological substances Hemoglobin A1c Today D69.6 - Thrombocytopenia, unspecified, E66.09 - Other obesity due to excess calories, K21.9 - Gastro-esophageal reflux disease without esophagitis, R79.89 - Other specified abnormal findings of blood chemistry, Z00.01 - Encounter for general adult medical examination with abnormal findings, Z68.35 - Body mass index [BMI] 35.0-35.9, adult, Z91.09 - Other allergy status, other than to drugs and biological substances TSH reflex Free T4 Today D69.6 - Thrombocytopenia, unspecified, E66.09 - Other obesity due to excess calories, K21.9 - Gastro-esophageal reflux disease without esophagitis, R79.89 - Other specified abnormal findings of blood chemistry, Z00.01 - Encounter for general adult medical examination with abnormal findings, Z68.35 - Body mass index [BMI] 35.0-35.9, adult, Z91.09 - Other allergy status, other than to drugs and biological substances Comprehensive Met. Panel Today D69.6 - Thrombocytopenia, unspecified, E66.09 - Other obesity due to excess calories, K21.9 - Gastro-esophageal reflux disease without esophagitis, R79.89 - Other specified abnormal findings of blood chemistry, Z00.01 - Encounter for general adult medical examination with abnormal findings, Z68.35 - Body mass index [BMI] 35.0-35.9, adult, Z91.09 - Other allergy status, other than to drugs and biological substances LDL Cholesterol Direct Today D69.6 - Thrombocytopenia, unspecified, E66.09 - Other obesity due to excess calories, K21.9 - Gastro-esophageal reflux disease without esophagitis, R79.89 - Other specified abnormal findings of blood chemistry, Z00.01 - Encounter for general adult medical examination with abnormal findings, Z68.35 - Body mass index [BMI] 35.0-35.9, adult, Z91.09 - Other allergy status, other than to drugs and biological substances UA CC w/rflx Micro + Cult Today D69.6 - Thrombocytopenia, unspecified, E66.09 - Other obesity due to excess calories, K21.9 - Gastro-esophageal reflux disease without esophagitis, R79.89 - Other specified abnormal findings of blood chemistry, Z00.01 - Encounter for general adult medical examination with abnormal findings, Z68.35 - Body mass index [BMI] 35.0-35.9, adult, Z91.09 - Other allergy status, other than to drugs and biological substances Ferritin Today D50.8 - Other iron deficiency anemias, J45.40 - Moderate persistent asthma, uncomplicated, R40.0 - Somnolence
[2024-12-13 14:23] VITALS: BP 120/66; PULSE 86; O2SAT 97; BMI 29.2
== END 2024-12-13 14:42 | disposition home or self-care (01) ==
PROVIDERS: PCP Internal Medicine; Visit Provider Internal Medicine
DX: Z00.00 Encounter for general adult medical examination without abnormal findings (principal); D69.6 Thrombocytopenia, unspecified; E66.09 Other obesity due to excess calories; Z68.35 Body mass index [BMI] 35.0-35.9, adult; R79.89 Other specified abnormal findings of blood chemistry; D50.8 Other iron deficiency anemias; Z91.09 Other allergy status, other than to drugs and biological substances; K21.9 Gastro-esophageal reflux disease without esophagitis; J45.40 Moderate persistent asthma, uncomplicated; R40.0 Somnolence

== ENCOUNTER 2024-12-13 14:16 | Outpatient (REF) | payer OTHER, SELFPAY ==
[2024-12-13 15:58] LABS: MANUAL DIFF FLAG NO
[2024-12-13 16:08] LABS: Basophils Percent Auto 0.4 % (0-2); Eosinophils Absolute Auto 0.1 X10*3/uL (0.0-0.4); Eosinophils Percent Auto 2.8 % (0-4); Hematocrit 32.1 % (37.0-47.0); Hemoglobin 10.1 g/dl (12.0-16.0); Imm Gran Abs Auto 0.02 X10*3/uL (0.00-0.03); Imm Gran Pct Auto 0.4 % (0.0-0.4); Lymphocytes Absolute Auto 1.9 X10*3/uL (1.2-4.9); Lymphocytes Percent Auto 37.1 % (20-40); Mean Corpuscular HGB Conc 31.5 g/dl (31.0-35.0); Mean Corpuscular Hemoglobin 25.7 pg (27.0-33.0); Mean Corpuscular Volume 81.7 fL (80.0-98.0); Mean Platelet Volume 12.9 fL (9.4-12.3); Monocytes Absolute Auto 0.5 X10*3/uL (0.1-1.2); Monocytes Percent Auto 9.4 % (2-11); Neutrophils Absolute Auto 2.5 x10*3/uL (2.0-8.3); Neutrophils Percent Auto 49.9 % (45-73); Platelet Count 203 X10*3/uL (160-400); Red Blood Count 3.93 X10*6/uL (4.20-5.50); Red Cell Distribution Width 14.2 % (11.0-16.0)
[2024-12-13 16:16] LABS: Appearance Urine Clear; Color Urine Yellow; Glucose Urine UA Negative (Negative); Leukocyte Esterase Urine Negative (Negative); Nitrite Urine Negative (Negative); Specific Gravity - Urine >= 1.030 (1.005-1.025); Urine Blood Negative (Negative); Urine Ketones Trace mg/dL (Negative); Urine Protein Negative (Neg-Trace)
[2024-12-13 16:21] LABS: Estimated Average Glucose 117 mg/dL; Hemoglobin A1C 105.5511 umol/L; Hemoglobin A1c % 5.7 % (<6.0); Total Hemoglobin (HGBA1C) 2692.3608 umol/L
[2024-12-13 18:01] LABS: Alanine Aminotransferase 44 U/L (0-31); Anion Gap 11 (12-20); Aspartate Amino Transferase 33 U/L (5-31); Bilirubin Total 0.6 mg/dL (0.0-1.0); Blood Urea Nitrogen 13 mg/dL (9-16); Calcium 8.9 mg/dL (8.4-10.2); Carbon Dioxide 26 mmol/L (22-29); Chloride 109 mmol/L (96-108); Estimated Glomerular Filt Rate > 60; Glucose Random 87 mg/dL (60-115); Potassium 3.9 mmol/L (3.3-5.1); Sodium 142 mmol/L (135-145); Total Protein 7.8 g/dL (6.5-8.0)
[2024-12-13 18:17] LABS: Alkaline Phosphatase 74 U/L (39-117)
[2024-12-13 18:20] LABS: Ferritin 6 ng/mL (10-250); TSH reflex Free T4 2.04 uIU/mL (0.32-4.0)
[2024-12-15 03:54] LABS: LDL Cholesterol Direct 122 mg/dL (<100)
== END 2024-12-13 14:17 | disposition home or self-care (01) ==
LOC: HO.HMGCLDS 14:16
PROVIDERS: PCP Internal Medicine; Visit Provider Internal Medicine
DX: Z00.01 Encounter for general adult medical examination with abnormal findings (principal); D69.6 Thrombocytopenia, unspecified; E66.09 Other obesity due to excess calories; Z68.35 Body mass index [BMI] 35.0-35.9, adult; Z91.09 Other allergy status, other than to drugs and biological substances; K21.9 Gastro-esophageal reflux disease without esophagitis; R79.89 Other specified abnormal findings of blood chemistry; D50.8 Other iron deficiency anemias; J45.40 Moderate persistent asthma, uncomplicated; R40.0 Somnolence
CPT/HCPCS: 36415; 80053; 81003; 82728; 83036; 83721; 84443; 85025; 96127; 99212; 99396

== ENCOUNTER 2024-12-19 08:06 | Outpatient (AMB) | payer OTHER, SELFPAY ==
--- NOTE | 2024-12-19 08:39 | A.OFFPC_ITS ---
Intake Visit Reasons: 1w f/u Allergies morphine [Morphine] Allergy (Intermediate, Verified 12/19/24 08:40) VOMITING, N/V Penicillins Allergy (Unknown, Verified 12/19/24 08:40) Rash Medication List - Last Reconciled 12/19/24 by Maria R Turner MD albuterol sulfate 90 mcg/actuation 1 puff PO QID PRN budesonide-formoterol 160-4.5 mcg/actuation (Symbicort) 1 inh inhalation BID cetirizine (Zyrtec) 10 mg PO DAILY 90 days ferrous sulfate 324 mg PO BID 90 days omeprazole 40 mg PO DAILY Tobacco use date assessed: 12/19/24 Dental Screening Dental Screen Date: 12/19/24 Did you have a dental visit in the last 12 months?: Yes Did you have a dental problem in the last 6 months where you did not have access to dental care?: No Was dental information given to patient?: Patient has dentist HPI 1w f/u HPI Details History - The patient is a 44-year-old female pr esenting for a review of her recent blood test results. - Blood test results show a discrepancy between her personal glucose monitor and laboratory results, with A1c at 5.7% suggesting controlled glucose levels contrary to her self-reported high values. - Liver function has seen improvement, w yousife LDL cholesterol remains at 122 mg/dL, indicating a need for monitoring but no immediate intervention. - Anemia is a concern given her current hemoglobin of 10.1 g/dL, which has decreased from previous levels attributed to heavy menstrual bleeding. - She follows a regimen of iron suppleme ntation twice daily but deals with resultant constipation through dietary means. Problem List - Diabetes Mellitus (unspecified) - Anemia - Heavy Menstrual Bleeding Patient Instructions - Continue taking iron supplements twice daily as prescribed. - Maintain a diet that helps alleviate c onstipation associated with iron supplements. - Schedule a repeat blood test for february to monitor blood parameters. Review of Systems. - General: No fever no chills - Neurological: No headaches no dizziness - Ear nose throat: No sore throat no hearing difficulty no ear pain - Cardiovascular: No syncope, no chest pain, no palpitations - Gastrointestinal: No nausea vomiting or diarrhea - Endocrine: No polyuria polydipsia no heat intolerance - Genitourinary: No dysuria , no blood in urine [facility] Medical History Dysfunctional uterine bleeding Neck pain on left side Paresthesia of hand Chronic GERD Asthma, moderate Iron deficiency anemia Surgical History H/O tubal ligation History of carpal tunnel surgery of right wrist Family History Father Colon cancer Mother Diabetes mellitus Brother No problems noted. Brother No problems noted. Son No problems noted. Daughter No problems noted. 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 How often do you have a drink containing alcohol?: Monthly or less 2. How many drinks containing alcohol do you have on a typical day when you are drinking?: 1 or 2 3. How often do you have six or more drinks on one occasion?: Never Total Score: 1 Score Reviewed/Action Taken: Yes WHIT-7 AMB Questionnaire WHIT-7 Date WHIT - 7 assessed: 12/13/24 Source: Developed by Drs. Cam Garcia, Lizzie Bridges, Godwin Rodgers and colleagues, with an educational lydia from [employer]. Physical exam (Primary Care) Tobacco/Smoking Status: Tobacco use Status Tobacco use date assessed 12/19/24 12/19/24 08:41 Patient Tobacco Use Status Former Tobacco user 12/19/24 08:41 Tobacco use type Cigarette 12/19/24 08:41 e-Cigarette/Vaping Use Never Used 12/19/24 08:41 Thrive Assessment: Date of Thrive Assessment Date Thrive assessed 12/13/24 12/19/24 08:41 Telehealth [facility] Location of provider rendering services: practice address Location of patient: address on file Patient Identification confirmed using: Name, : Yes Telehealth method: video (attempted) Patient verbally consented to treatment: Yes Patient verbally consented to billing insurance company: Yes Patient informed of any privacy concerns related to visit: Yes Minutes spent on Phone/Video with Pt.: 13 Coding Level of Care Code Tele Est Pt Level 3 (68276) Diagnoses Other iron deficiency anemia D50.8 Iron deficiency anemia type: other iron deficiency Other fatigue R53.83 Fatigue type: other Menorrhagia with regular cycle N92.0 Menorrhagia type: with regular cycle Assessment & Plan Assessment & Plan (1) Iron deficiency anemia: Code(s): D50.9 - Iron deficiency anemia, unspecified Category: Medical Qualifiers: Iron deficiency anemia type: other iron deficiency Qualified Code(s): D50.8 - Other iron deficiency anemias (2) Fatigue: Code(s): R53.83 - Other fatigue Category: Medical Qualifiers: Fatigue type: other Qualified Code(s): R53.83 - Other fatigue (3) Heavy menstrual bleeding: Code(s): N92.0 - Excessive and frequent menstruation with regular cycle Category: Medical Qualifiers: Menorrhagia type: with regular cycle Qualified Code(s): N92.0 - Excessive and frequent menstruation with regular cycle Plan History - The patient is a 44-year-old female presenting for a review of her recent blood test results. - Blood test results show a discrepancy between her personal glucose monitor and laboratory results, with A1c at 5.7% suggesting controlled glucose levels contrary to her self-reported high values. - Liver function has seen improvement, while LDL cholesterol remains at 122 mg/dL, indicating a need for monitoring but no immediate intervention. - Anemia is a concern given her current hemoglobin of 10.1 g/dL, which has decreased from previous levels attributed to heavy menstrual bleeding. - She follows a regimen of iron supplementation twice daily but deals with resultant constipation through dietary means. Problem List - Diabetes Mellitus (unspecified) - Anemia - Heavy Menstrual Bleeding Patient Instructions - Continue taking iron supplements twice daily as prescribed. - Maintain a diet that helps alleviate constipation associated with iron supplements. - Schedule a repeat blood test for end february to monitor blood parameters. Orders: Orders Complete Blood Count Auto Diff 2 Months D50.8 - Other iron deficiency anemias, N92.0 - Excessive and frequent menstruation with regular cycle, R53.83 - Other fatigue Comprehensive Met. Panel 2 Months D50.8 - Other iron deficiency anemias, N92.0 - Excessive and frequent menstruation with regular cycle, R53.83 - Other fatigue Ferritin 2 Months D50.8 - Other iron deficiency anemias, N92.0 - Excessive and frequent menstruation with regular cycle, R53.83 - Other fatigue
== END 2024-12-19 09:33 | disposition home or self-care (01) ==
LOC: HO.HMCC 08:06
PROVIDERS: PCP Internal Medicine; Visit Provider Internal Medicine
DX: D50.8 Other iron deficiency anemias (principal); R53.83 Other fatigue; N92.0 Excessive and frequent menstruation with regular cycle

== ENCOUNTER 2025-07-10 08:59 | Outpatient (AMB) | payer OTHER, SELFPAY ==
--- NOTE | 2025-07-10 09:12 | AM.OFFWIN_ITS ---
Intake Vital Signs 07/10/25 09:13 Height 5 ft 5 in Weight 173 lb BMI 28.8 BP 116/74 Blood Pressure Location Rt brachial Position Sitting Pulse 73 Pulse Source Pulse Oximeter Pulse Oximetry (%) 98 Oxygen Delivery Method Room Air Intake Visit Reasons: discomfort in gential area cut with razor infected Intake Note: pt is here for concern regarding a cut from shaving genital area, she states its been less then a week. Patient Tobacco Use Status: Former Tobacco user Allergies morphine (Morphine) Allergy (Intermediate, Verified 07/10/25 09:13) VOMITING, N/V Penicillins Allergy (Unknown, Verified 07/10/25 09:13) Rash Do you need a note to return to daycare/school/sports/work: Yes HPI HPI Comments History of Present Illness Details History of Present Illness - The patient is a 44-year-old female pr esenting with pain to the clitoris. - She has a hard, tender mass on the cli toris, suspected to be a cyst. - The issue began less than a week ago f ollowing the use of a razor for trimming, which the patient has used for years without prior issues. - The mass is described as hard and cyst -like, causing significant discomfort and tenderness in the area. - The patient has attempted warm roselia ses as an intervention, but there is no visible head or pus. - The patient reports no redness or swel ling in the area, and there is no history of similar occurrences. - She has never had anything like this. - She states that the razor is not new. - She denies fever, chills, discharge or bleeding. Physical Exam General: Cooperative, healthy appearing, uncomfortable, no acute distress and well developed Respiratory: Normal respiratory effort and able to speak in complete sentences. Clear to auscultation bilaterally Cardiovascular: Regular rate and rhythm. Normal S1 and S2 GI: Normal to inspection. Soft to palpation and nontender Skin: No rashes or lesions noted : Hard, flesh colored, tender mass in the clitoris. No induration or fluctuance noted. No redness or warmth noted. No discharge noted in the vaginal introitus. No labial swelling noted. Patient was informed and verbally consented to the use of an ambient scribe for clinic note documentation during this visit. [facility] Medical History Dysfunctional uterine bleeding Neck pain on left side Paresthesia of hand Chronic GERD Asthma, moderate Iron deficiency anemia Surgical History H/O tubal ligation History of carpal tunnel surgery of right wrist Family History Father Colon cancer Mother Diabetes mellitus Brother No problems noted. Brother No problems noted. Son No problems noted. Daughter No problems noted. 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 Sexual orientation: Straight/Heterosexual Cognitive needs: No Hearing needs: No Vision needs: No Female Reproductive History Menstrual Age of Menarche: 13 Review of Systems Const All systems reviewed & are unremarkable except as noted in HPI and below Physical Exam Vital Signs: Last Vital Signs Pulse 73 07/10/25 09:13 BP 116/74 07/10/25 09:13 Pulse Ox 98 07/10/25 09:13 Oxygen Delivery Method Room Air 07/10/25 09:13 BMI result Body Mass Index 28.8 Assessment & Plan Assessment & Plan (1) Vaginal mass: Code(s): N89.8 - Other specified noninflammatory disorders of vagina Plan Most likely a Possible Cyst On Clitoris vs abscess vs folliculitis plan - Prescribed antibiotics to address potential infection. - Advised warm baths with Epsom salt to alleviate symptoms. - Recommended follow-up with [employer] to rule out abscess formation. Medications: New sulfamethoxazole-trimethoprim 800-160 mg (Bactrim DS) 1 tab PO q12h 14 tabs 0RF 7 days Coding Level of Care Code Est Pt Level 3 (44626) Diagnoses Vaginal mass N89.8
[2025-07-10 09:13] VITALS: BP 116/74; PULSE 73; O2SAT 98; BMI 28.8
== END 2025-07-10 10:06 | disposition home or self-care (01) ==
PROVIDERS: PCP Internal Medicine; Visit Provider Physician Assistant Medical
DX: N89.8 Other specified noninflammatory disorders of vagina (principal)

== ENCOUNTER → 2025-07-10 08:59 | Outpatient (BNVA) | payer OTHER, SELFPAY | PROVIDERS: PCP Internal Medicine; Visit Provider Physician Assistant Medical | DX: K21.9 Gastro-esophageal reflux disease without esophagitis (principal); N89.8 Other specified noninflammatory disorders of vagina | CPT/HCPCS: 99212 ==

== ENCOUNTER 2025-07-16 13:30 | Outpatient (AMB) | payer OTHER, SELFPAY ==
[2025-07-16 13:37] VITALS: BP 118/72; PULSE 84; O2SAT 99; BMI 28.8
--- NOTE | 2025-07-16 13:37 | MHC.PC.OV ---
Vital Signs 07/16/25 13:37 Height 5 ft 5 in Weight 173 lb BMI 28.8 BP 118/72 Blood Pressure Location Lt brachial Position Sitting Pulse 84 Pulse Source Pulse Oximeter Pulse Oximetry (%) 99 Intake Visit Reasons: Groin Discomfort Allergies morphine (Morphine) Allergy (Intermediate, Verified 07/16/25 13:37) VOMITING, N/V Penicillins Allergy (Unknown, Verified 07/16/25 13:37) Rash Medication List - Last Reconciled 07/16/25 by Maria R Turner MD albuterol sulfate 90 mcg/actuation 1 puff PO QID PRN budesonide-formoterol 160-4.5 mcg/actuation (Symbicort) 1 inh inhalation BID cetirizine (Zyrtec) 10 mg PO DAILY 90 days ferrous sulfate 324 mg PO BID 90 days omeprazole 40 mg PO DAILY sulfamethoxazole-trimethoprim 800-160 mg (Bactrim DS) 1 tab PO q12h 7 days Tobacco use date assessed: 12/19/24 Dental Screening Dental Screen Date: 12/19/24 HPI Groin Discomfort HPI Details Interval History The patient is a 44-year-old female presenting with concerns about recurrent genital lesions. Patient has a history of asthma and chronic GERD along with allergies Recurrent Genital Lesions: - The patient noticed an initial mass on the clitoris approximately six days prior to the presentation, described as painful, and possibly filled with pus or fluid, which subsequently resolved. - Patient reports two additional masses have appeared near the clitoris following resolution of the initial lesion. - The patient has no prior history of similar episodes and has been in a monogamous relationship for 26 years. - Patient recalls using a tremor but suspected only a minor nicking incident. - The patient was previously prescribed a seven-day course of antibiotics. Through the walk-in clinic for this problem Medications: - Symbicort - Allergic reactions (presumably for allergy conditions) - Omeprazole (presumably for gastrointestinal issues) Social History: - The patient is in a monogamous relationship, with one partner for approximately 26 years. Problem List - Recurrent Genital Lesions - Suspected Herpes Simplex Virus Patient Instructions - Discontinue the antibiotic previously prescribed. - Take prescribed antiviral medication when symptoms occur. - Follow through with blood tests including STD panel. - Monitor for recurrence of lesions and take medication promptly. - Seek guidance for daily medicine if episodes become frequent. Review of Systems - Respiratory: Reports use of Symbicort. - General: No fever no chills - Neurological: No headaches no dizziness - Ear nose throat: No sore throat no hearing difficulty no ear pain - Cardiovascular: No syncope, no chest pain, no palpitations - Gastrointestinal: No nausea vomiting or diarrhea - Endocrine: No polyuria polydipsia no heat intolerance - Genitourinary: No dysuria , no blood in urine Physical Exam - General: No acute distress - HEENT: No acute findings - Neck: Supple - Respiratory system: Able to talk in full sentences, no audible wheeze - Cardiovascular: S1-S2 regular in rate and rhythm - Gastrointestinal: No pain - genital exam reveals couple of sores close to clitoris painful to touch - 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 Brother No problems noted. Son No problems noted. Daughter No problems noted. 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 Sexual orientation: Straight/Heterosexual Cognitive needs: No Hearing needs: No Vision needs: No Female Reproductive History Menstrual Age of Menarche: 13 Questionnaire Thrive Questionnaire Date Thrive assessed: 11/23/24 I am a: Patient What is your living situation today?: I have a steady place to live Within the past 12 months, did the food you bought not last and you didn't have the money to get more?: Never true Within the past 12 months, did you worry whether your food would run out before you got money to buy more?: Never true Do you have trouble paying for medicines?: No Do you have trouble getting transportation to medical appointments?: No Do you have trouble paying your heating and electricity bill?: No Do you have trouble taking care of your child, family member or friend?: No Do you have trouble with day-to-day activities such as bathing, preparing meals, shopping, managing finances, etc.?: No Are you currently unemployed and looking for a job?: No Are you interested in more education?: No Please select the resources that you would like help with: None Currently or been in a relationship where the following occur: No concerns reported THRIVE Score: 0 WHIT-7 AMB Questionnaire WHIT-7 Date WHIT - 7 assessed: 12/13/24 Source: Developed by Drs. Cam Garcia, Lizzie Bridges, Godwin Rodgers and colleagues, with an educational lydia from [place]. Physical exam (Primary Care) Vital Signs: Last Vital Signs Pulse 84 07/16/25 13:37 BP 118/72 07/16/25 13:37 Pulse Ox 99 07/16/25 13:37 BMI result Body Mass Index 28.8 Tobacco/Smoking Status: Tobacco use Status Tobacco use date assessed 12/19/24 07/16/25 13:39 Patient Tobacco Use Status Former Tobacco user 07/16/25 13:39 Tobacco use type Cigarette 07/16/25 13:39 e-Cigarette/Vaping Use Never Used 07/16/25 13:39 Thrive Assessment: Date of Thrive Assessment Date Thrive assessed 11/23/24 07/16/25 13:39 Currently or been in a relationship where the following occur: No concerns reported Coding Level of Care Code Est Pt Level 4 (72708) Diagnoses Genital lesion, female N94.9 STD exposure Z20.2 Moderate persistent asthma without complication J45.40 Asthma complication type: uncomplicated Asthma persistence: persistent Chronic GERD K21.9 Class 2 obesity due to excess calories without serious comorbidity with body mass index (BMI) of 35.0 to 35.9 in adult E66.09; Z68.35 Body mass index: BMI 35.0-35.9 Obesity classification: adult class 2 (BMI 35 - 39.9) Serious obesity comorbidity presence: without serious comorbidity Assessment & Plan Assessment & Plan (1) Genital lesion, female: Code(s): N94.9 - Unspecified condition associated with female genital organs and menstrual cycle Category: Medical (2) STD exposure: Code(s): Z20.2 - Contact with and (suspected) exposure to infections with a predominantly sexual mode of transmission Category: Medical (3) Asthma, moderate: Code(s): J45.909 - Unspecified asthma, uncomplicated Category: Medical Qualifiers: Asthma complication type: uncomplicated Asthma persistence: persistent Qualified Code(s): J45.40 - Moderate persistent asthma, uncomplicated (4) Chronic GERD: Code(s): K21.9 - Gastro-esophageal reflux disease without esophagitis Category: Medical (5) Obesity due to excess calories: Code(s): E66.09 - Other obesity due to excess calories Category: Medical Qualifiers: Body mass index: BMI 35.0-35.9 Obesity classification: adult class 2 (BMI 35 - 39.9) Serious obesity comorbidity presence: without serious comorbidity Qualified Code(s): E66.09 - Other obesity due to excess calories; Z68.35 - Body mass index [BMI] 35.0-35.9, adult Plan Interval History The patient is a 44-year-old female presenting with concerns about recurrent genital lesions. Patient has a history of asthma and chronic GERD along with allergies Recurrent Genital Lesions: - The patient noticed an initial mass on the clitoris approximately six days prior to the presentation, described as painful, and possibly filled with pus or fluid, which subsequently resolved. - Patient reports two additional masses have appeared near the clitoris following resolution of the initial lesion. - The patient has no prior history of similar episodes and has been in a monogamous relationship for 26 years. - Patient recalls using a tremor but suspected only a minor nicking incident. - The patient was previously prescribed a seven-day course of antibiotics. Through the walk-in clinic for this problem Medications: - Symbicort - Allergic reactions (presumably for allergy conditions) - Omeprazole (presumably for gastrointestinal issues) Social History: - The patient is in a monogamous relationship, with one partner for approximately 26 years. Problem List - Recurrent Genital Lesions - Suspected Herpes Simplex Virus Patient Instructions - Discontinue the antibiotic previously prescribed. - Take prescribed antiviral medication when symptoms occur. - Follow through with blood tests including STD panel. - Monitor for recurrence of lesions and take medication promptly. - Seek guidance for daily medicine if episodes become frequent. Orders: Orders Comprehensive Met. Panel Today D69.6 - Thrombocytopenia, unspecified, E66.09 - Other obesity due to excess calories, J45.40 - Moderate persistent asthma, uncomplicated, K21.9 - Gastro-esophageal reflux disease without esophagitis, N94.9 - Unspecified condition associated with female genital organs and menstrual cycle, Z20.2 - Contact with and (suspected) exposure to infections with a predominantly sexual mode of transmission, Z68.35 - Body mass index [BMI] 35.0-35.9, adult HIV Ab/Ag Today D69.6 - Thrombocytopenia, unspecified, E66.09 - Other obesity due to excess calories, J45.40 - Moderate persistent asthma, uncomplicated, K21.9 - Gastro-esophageal reflux disease without esophagitis, N94.9 - Unspecified condition associated with female genital organs and menstrual cycle, Z20.2 - Contact with and (suspected) exposure to infections with a predominantly sexual mode of transmission, Z68.35 - Body mass index [BMI] 35.0-35.9, adult Herpes Simplex Virus Ab IgG Today D69.6 - Thrombocytopenia, unspecified, E66.09 - Other obesity due to excess calories, J45.40 - Moderate persistent asthma, uncomplicated, K21.9 - Gastro-esophageal reflux disease without esophagitis, N94.9 - Unspecified condition associated with female genital organs and menstrual cycle, Z20.2 - Contact with and (suspected) exposure to infections with a predominantly sexual mode of transmission, Z68.35 - Body mass index [BMI] 35.0-35.9, adult Hepatitis B Surface Antibody Today D69.6 - Thrombocytopenia, unspecified, E66.09 - Other obesity due to excess calories, J45.40 - Moderate persistent asthma, uncomplicated, K21.9 - Gastro-esophageal reflux disease without esophagitis, N94.9 - Unspecified condition associated with female genital organs and menstrual cycle, Z20.2 - Contact with and (suspected) exposure to infections with a predominantly sexual mode of transmission, Z68.35 - Body mass index [BMI] 35.0-35.9, adult Syphilis Screen Today D69.6 - Thrombocytopenia, unspecified, E66.09 - Other obesity due to excess calories, J45.40 - Moderate persistent asthma, uncomplicated, K21.9 - Gastro-esophageal reflux disease without esophagitis, N94.9 - Unspecified condition associated with female genital organs and menstrual cycle, Z20.2 - Contact with and (suspected) exposure to infections with a predominantly sexual mode of transmission, Z68.35 - Body mass index [BMI] 35.0-35.9, adult Complete Blood Count Auto Diff Today D69.6 - Thrombocytopenia, unspecified, E66.09 - Other obesity due to excess calories, J45.40 - Moderate persistent asthma, uncomplicated, K21.9 - Gastro-esophageal reflux disease without esophagitis, N94.9 - Unspecified condition associated with female genital organs and menstrual cycle, Z20.2 - Contact with and (suspected) exposure to infections with a predominantly sexual mode of transmission, Z68.35 - Body mass index [BMI] 35.0-35.9, adult Hepatitis C Antibody Today D69.6 - Thrombocytopenia, unspecified, E66.09 - Other obesity due to excess calories, J45.40 - Moderate persistent asthma, uncomplicated, K21.9 - Gastro-esophageal reflux disease without esophagitis, N94.9 - Unspecified condition associated with female genital organs and menstrual cycle, Z20.2 - Contact with and (suspected) exposure to infections with a predominantly sexual mode of transmission, Z68.35 - Body mass index [BMI] 35.0-35.9, adult LDL Cholesterol Direct Today D69.6 - Thrombocytopenia, unspecified, E66.09 - Other obesity due to excess calories, J45.40 - Moderate persistent asthma, uncomplicated, K21.9 - Gastro-esophageal reflux disease without esophagitis, N94.9 - Unspecified condition associated with female genital organs and menstrual cycle, Z20.2 - Contact with and (suspected) exposure to infections with a predominantly sexual mode of transmission, Z68.35 - Body mass index [BMI] 35.0-35.9, adult TSH reflex Free T4 Today D69.6 - Thrombocytopenia, unspecified, E66.09 - Other obesity due to excess calories, J45.40 - Moderate persistent asthma, uncomplicated, K21.9 - Gastro-esophageal reflux disease without esophagitis, N94.9 - Unspecified condition associated with female genital organs and menstrual cycle, Z20.2 - Contact with and (suspected) exposure to infections with a predominantly sexual mode of transmission, Z68.35 - Body mass index [BMI] 35.0-35.9, adult Medications: New valacyclovir 1,000 mg PO BID 14 tabs 0RF Discontinued sulfamethoxazole-trimethoprim 800-160 mg (Bactrim DS) Discontinued Reason: Doctor's Order 1 tab PO q12h 7 days 14 tabs 0RF
== END 2025-07-16 14:02 | disposition home or self-care (01) ==
LOC: HO.HMCC 13:31
PROVIDERS: PCP Internal Medicine; Visit Provider Internal Medicine
DX: N94.9 Unspecified condition associated with female genital organs and menstrual cycle (principal); Z20.2 Contact with and (suspected) exposure to infections with a predominantly sexual mode of transmission; J45.40 Moderate persistent asthma, uncomplicated; K21.9 Gastro-esophageal reflux disease without esophagitis; E66.09 Other obesity due to excess calories; Z68.35 Body mass index [BMI] 35.0-35.9, adult

== ENCOUNTER 2025-07-16 13:30 | Outpatient (REF) | payer OTHER, SELFPAY ==
[2025-07-16 16:18] LABS: MANUAL DIFF FLAG NO
[2025-07-16 16:27] LABS: Hematocrit 33.0 % (37.0-47.0); Hemoglobin 10.4 g/dl (12.0-16.0); Imm Gran Abs Auto 0.01 X10*3/uL (0.00-0.03); Imm Gran Pct Auto 0.3 % (0.0-0.4); Lymphocytes Absolute Auto 0.6 X10*3/uL (1.2-4.9); Mean Corpuscular HGB Conc 31.5 g/dl (31.0-35.0); Mean Corpuscular Hemoglobin 25.7 pg (27.0-33.0); Mean Corpuscular Volume 81.7 fL (80.0-98.0); NRBC Abs Auto 0.000 X10*3/uL (0.0-0.012); NRBC Pct Auto 0.0 /100WBC (0.0-0.2); Platelet Count 171 X10*3/uL (160-400); Red Blood Count 4.04 X10*6/uL (4.20-5.50); White Blood Count 3.3 X10*3/uL (4.8-10.8)
[2025-07-16 16:43] LABS: Alanine Aminotransferase 87 U/L (0-31); Albumin Level 4.4 g/dL (3.5-5.0); Alkaline Phosphatase 104 U/L (39-117); Anion Gap 10 (12-20); Aspartate Amino Transferase 60 U/L (5-31); Blood Urea Nitrogen 10 mg/dL (9-16); Calcium 8.6 mg/dL (8.4-10.2); Carbon Dioxide 24 mmol/L (22-29); Chloride 106 mmol/L (96-108); Estimated Glomerular Filt Rate 52; Potassium 4.0 mmol/L (3.3-5.1); Sodium 136 mmol/L (135-145); Total Protein 7.8 g/dL (6.5-8.0)
[2025-07-16 17:06] LABS: Ferritin 16 ng/mL (10-250)
[2025-07-17 08:03] LABS: HBS Num1 3.01 mIU/mL (0-7.99); HIV Num 1 0.06 S/CO (0.00-0.99); ~HepC Num1 0.37 S/CO (0.00-0.79); ~Hepatitis B Surface Antibody NONREACTIVE (Nonreactive); ~Hepatitis C Antibody Nonreactive (Nonreactive)
[2025-07-17 08:11] LABS: Syphilis Screen Nonreactive (Nonreactive)
== END 2025-07-16 13:31 | disposition home or self-care (01) ==
LOC: HO.HMGCLDS 13:30
PROVIDERS: PCP Internal Medicine; Visit Provider Internal Medicine
DX: Z20.2 Contact with and (suspected) exposure to infections with a predominantly sexual mode of transmission (principal); N94.9 Unspecified condition associated with female genital organs and menstrual cycle; J45.40 Moderate persistent asthma, uncomplicated; K21.9 Gastro-esophageal reflux disease without esophagitis; D69.6 Thrombocytopenia, unspecified; E66.09 Other obesity due to excess calories; R53.83 Other fatigue; N92.0 Excessive and frequent menstruation with regular cycle; D50.8 Other iron deficiency anemias; Z79.899 Other long term (current) drug therapy; Z68.28 Body mass index [BMI] 28.0-28.9, adult
CPT/HCPCS: 36415; 80053; 82728; 83721; 84443; 85025; 86695; 86696; 86706; 86780; 86803; 87389; 99212

== ENCOUNTER 2025-07-17 14:15 | Outpatient (AMB) | payer OTHER, SELFPAY ==
[2025-07-17 14:21] VITALS: BMI 28.8
--- NOTE | 2025-07-17 14:21 | MHC.OFFVIS ---
Vital Signs 07/17/25 14:21 Height 5 ft 5 in Weight 173 lb BMI 28.8 Intake Visit Reasons: Follow up vaginal abscess New Accounts Representative Required: No Information Interpreted: non-clinical & clinical Vp Training: Vp Training Present (Juani ZARAGOZA) Accompanied by: Self / Same As Patient Allergies morphine (Morphine) Allergy (Intermediate, Verified 07/17/25 14:21) VOMITING, N/V Penicillins Allergy (Unknown, Verified 07/17/25 14:21) Rash HPI Comments Details: The patient is presenting c/o vulvar lesions that appeared few days ago. They started as few blisters and became ulcers. They are tender to touch STD screening done by PCP was negative, herpes simplex IgG pending The patient was prescribed Valtrex 1 g p.o. b.i.d. [facility] Medical History Dysfunctional uterine bleeding Neck pain on left side Paresthesia of hand Chronic GERD Asthma, moderate Iron deficiency anemia Surgical History H/O tubal ligation History of carpal tunnel surgery of right wrist Family History Father Colon cancer Mother Diabetes mellitus Brother No problems noted. Brother No problems noted. Son No problems noted. Daughter No problems noted. 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 Sexual orientation: Straight/Heterosexual Cognitive needs: No Hearing needs: No Vision needs: No Female Reproductive History Menstrual Age of Menarche: 13 Review of Systems Const All systems reviewed & are unremarkable except as noted in HPI and below Physical Exam Vital Signs: BMI result Body Mass Index 28.8 General: Yes no CVA tenderness External Female Exam: No normal external appearance (Bilateral periclitoral herpetic lesion) and normal appearance of the urethra Speculum Exam - Vagina: normal appearance of the vagina, normal palpation, no lesions and no masses Speculum Exam - Cervix: normal appearance of the cervix, normal palpation, no lesions, no masses and nontender Bimanual exam- vagina & uterus: normal bimanual exam, normal palpation, uterine size normal, normal palpation, uterine shape normal, No Cervical tenderness present and non-tender Bimanual Exam- Adnexa, other: normal adnexae Back/Spine/Pelvis Back: no CVA tenderness Assessment & Plan Assessment & Plan (1) Herpes genitalia: Code(s): A60.00 - Herpesviral infection of urogenital system, unspecified Category: Medical Plan: Discussed with the patient the findings on physical exam, diagnosis being suspicious for herpes and the mode of transmission. STDs including RPR, hep B and C, HIV were done yesterday and negative GC and chlamydia and Trichomonas collected. Valtrex Prescription 1 g p.o. b.i.d. for 10 days for initial outbreak was sent to the patient pharmacy, follow-up in 2 weeks for re-evaluation. all questions answered patient verbalized understanding. Orders: Orders Bacterial Vaginosis Panel Today N93.9 - Abnormal uterine and vaginal bleeding, unspecified, N94.9 - Unspecified condition associated with female genital organs and menstrual cycle Herpes Virus Culture Today N93.9 - Abnormal uterine and vaginal bleeding, unspecified, N94.9 - Unspecified condition associated with female genital organs and menstrual cycle CT NG by PCR Vag/Cerv Today N93.9 - Abnormal uterine and vaginal bleeding, unspecified, N94.9 - Unspecified condition associated with female genital organs and menstrual cycle Coding Level of Care Code Est Pt Level 3 (68717) Diagnoses Herpes genitalia A60.00
== END 2025-07-17 14:47 | disposition home or self-care (01) ==
LOC: HO.HWS 14:15
PROVIDERS: PCP Internal Medicine; Visit Provider Obstetrics & Gynecology
DX: A60.00 Herpesviral infection of urogenital system, unspecified (principal)
CPT/HCPCS: 99213

== ENCOUNTER 2025-07-17 14:15 | Outpatient (REF) | payer OTHER, SELFPAY ==
[2025-07-17 16:27] LABS: Bacterial Vaginosis PCR NEGATIVE (Negative); Candida Group PCR NOT DETECTED (Not Detect); Candida glab krusei PCR NOT DETECTED (Not Detect); Trichomonas vaginalis PCR NOT DETECTED (Not Detect)
[2025-07-17 17:00] LABS: CT PCR NOT DETECTED (Not Detect.); NG PCR NOT DETECTED (Not Detect.)
== END 2025-07-17 14:16 | disposition home or self-care (01) ==
LOC: HO.LNP 14:15
PROVIDERS: PCP Internal Medicine; Visit Provider Obstetrics & Gynecology
DX: A60.00 Herpesviral infection of urogenital system, unspecified (principal); N93.9 Abnormal uterine and vaginal bleeding, unspecified; Z11.3 Encounter for screening for infections with a predominantly sexual mode of transmission; Z11.8 Encounter for screening for other infectious and parasitic diseases
CPT/HCPCS: 81515; 87255; 87491; 87591; 99212

== ENCOUNTER 2025-07-24 08:16 | Outpatient (AMB) | payer OTHER, SELFPAY ==
--- NOTE | 2025-07-24 10:55 | A.OFFPC_ITS ---
Intake Visit Reasons: lab review Allergies morphine (Morphine) Allergy (Intermediate, Verified 07/17/25 14:21) VOMITING, N/V Penicillins Allergy (Unknown, Verified 07/17/25 14:21) Rash Medication List - Last Reconciled 07/24/25 by Maria R Turner MD albuterol sulfate 90 mcg/actuation 1 puff PO QID PRN budesonide-formoterol 160-4.5 mcg/actuation (Symbicort) 1 inh inhalation BID cetirizine (Zyrtec) 10 mg PO DAILY 90 days ferrous sulfate 324 mg PO BID 90 days omeprazole 40 mg PO DAILY valacyclovir 1,000 mg PO BID Tobacco use date assessed: 12/19/24 Dental Screening Dental Screen Date: 12/19/24 HPI lab review HPI Details History of Present Illness The patient is a 44-year-old female presenting with genital lesions and iron deficiency anemia. Genital Herpes: - Patient had lab tests confirming posit yasemin herpes simplex virus type 1 (HSV-1) antibody. - Initial treatment included Valtrex, wh ich improved symptoms significantly. - Was instructed to take Valtrex 1 gram twice daily for 2 days in case of future outbreaks. Iron Deficiency Anemia: - Ongoing issue with anemia, current hem oglobin level at 10.4. - Previous hemoglobin measurement was 10 .1 in November. - Patient has increased iron intake to t wo times daily. - Plan to reevaluate with labs in 3 theresa hs. LFT has gotten worse Problem List - Herpes Simplex Virus Type 1 (HSV-1) - Iron Deficiency Anemia - elevated Liver enzymes Patient Instructions - Continue taking Velacyclovir 1 gram tw ice daily for 2 days if a breakout occurs. - Continue iron supplements as directed, twice daily. - Follow up with lab work and liver ultr asound as recommended. in 3 M with f.u apt Review of Systems - Gen : no fever no chills - Neurological: No headaches no dizziness - Ear nose throat: No sore throat no hearing difficulty no ear pain - Cardiovascular: No syncope, no chest pain, no palpitations - Gastrointestinal: No nausea vomiting or diarrhea [facility] Medical History Dysfunctional uterine bleeding Neck pain on left side Paresthesia of hand Chronic GERD Asthma, moderate Iron deficiency anemia Surgical History H/O tubal ligation History of carpal tunnel surgery of right wrist Family History Father Colon cancer Mother Diabetes mellitus Brother No problems noted. Brother No problems noted. Son No problems noted. Daughter No problems noted. 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 Cam Garcia, Lizzie Bridges, Godwin Rodgers and colleagues, with an educational lydia from [employer]. Physical exam (Primary Care) Tobacco/Smoking Status: Tobacco use Status Tobacco use date assessed 12/19/24 07/24/25 10:56 Patient Tobacco Use Status Former Tobacco user 07/24/25 10:56 Tobacco use type Cigarette 07/24/25 10:56 e-Cigarette/Vaping Use Never Used 07/24/25 10:56 Thrive Assessment: Date of Thrive Assessment Date Thrive assessed 11/23/24 07/24/25 10:56 Telehealth Telehealth Telehealth Platform: [facility] Location of provider rendering services: practice address Location of patient: address on file Patient Identification confirmed using: Name, : Yes Telehealth method: video Patient verbally consented to treatment: Yes Patient verbally consented to billing insurance company: Yes Patient informed of any privacy concerns related to visit: Yes Minutes spent on Phone/Video with Pt.: 14 Coding Level of Care Code Tele Est Pt Level 3 (99046) Diagnoses Herpes genitalia A60.00 LFT elevation R79.89 Other iron deficiency anemia D50.8 Iron deficiency anemia type: other iron deficiency Assessment & Plan Assessment & Plan (1) Herpes genitalia: Code(s): A60.00 - Herpesviral infection of urogenital system, unspecified Category: Medical (2) LFT elevation: Code(s): R79.89 - Other specified abnormal findings of blood chemistry Category: Medical (3) Iron deficiency anemia: Code(s): D50.9 - Iron deficiency anemia, unspecified Category: Medical Qualifiers: Iron deficiency anemia type: other iron deficiency Qualified Code(s): D50.8 - Other iron deficiency anemias Plan History of Present Illness The patient is a 44-year-old female presenting with genital lesions and iron deficiency anemia. Genital Herpes: - Patient had lab tests confirming positive herpes simplex virus type 1 (HSV-1) antibody. - Initial treatment included Valtrex, which improved symptoms significantly. - Was instructed to take Valtrex 1 gram twice daily for 2 days in case of future outbreaks. Iron Deficiency Anemia: - Ongoing issue with anemia, current hemoglobin level at 10.4. - Previous hemoglobin measurement was 10.1 in November. - Patient has increased iron intake to two times daily. - Plan to reevaluate with labs in 3 months. LFT has gotten worse Problem List - Herpes Simplex Virus Type 1 (HSV-1) - Iron Deficiency Anemia - elevated Liver enzymes Patient Instructions - Continue taking Velacyclovir 1 gram twice daily for 2 days if a breakout occurs. - Continue iron supplements as directed, twice daily. - Follow up with lab work and liver ultrasound as recommended. in 3 M with f.u apt Orders: Orders US abdomen limited Today R7 - Other specified abnormal findings of blood chemistry Comprehensive Met. Panel 3 Months R7.89 - Other specified abnormal findings of blood chemistry IRON PROFILE Today D50.8 - Other iron deficiency anemias Ferritin Today D50.8 - Other iron deficiency anemias Hepatitis A,B,C Profile 3 Months R7.89 - Other specified abnormal findings of blood chemistry Liver Fibrosis Pnl 3 Months R79.89 - Other specified abnormal findings of blood chemistry Folate Today D50.8 - Other iron deficiency anemias Complete Blood Count Auto Diff Today D50.8 - Other iron deficiency anemias Vitamin B12 Today D50.8 - Other iron deficiency anemias Medications: Refilled omeprazole 40 mg PO DAILY 90 caps 1RF cetirizine (Zyrtec) 10 mg PO DAILY 90 tabs 1RF 90 days valacyclovir 1,000 mg PO BID 14 tabs 0RF
== END 2025-07-24 11:10 | disposition home or self-care (01) ==
LOC: HO.HMCC 08:16
PROVIDERS: PCP Internal Medicine; Visit Provider Internal Medicine
DX: A60.00 Herpesviral infection of urogenital system, unspecified (principal); R79.89 Other specified abnormal findings of blood chemistry; D50.8 Other iron deficiency anemias

== ENCOUNTER 2025-10-06 09:24 | Outpatient (REF) | payer OTHER, SELFPAY ==
--- NOTE | ~2025-10-06 | US_ITS ---
CLINICAL HISTORY: R79.89 - Other specified abnormal findings of blood chemistry US abdomen limited Comparison: None provided Findings: The visualized pancreas is normal. The aorta and inferior vena cava are normal caliber. The liver is normal in size and has heterogeneously coarsened echotexture. There is no intrahepatic bile duct dilatation. The common duct is 3 mm in diameter. The gallbladder is normal. There is no sonographic Narayanan sign. The main portal vein is antegrade. The right kidney is 12.3 cm in length. No ascites. IMPRESSION: Hepatic steatosis, otherwise normal right upper quadrant ultrasound. This document has been electronically signed by: Sher Rao MD on 10/06/2025 12:39:36
--- NOTE | ~2025-10-06 | MM_ITS ---
EXAMINATION: MM SCREENING DIGITAL BREAST TOMOSYNTHESIS, BILATERAL CLINICAL INFORMATION: Screening. Asymptomatic. COMPARISON: Mammography: Comparison is made with available priors TECHNIQUE: Digital breast mammography with tomosynthesis is performed in both the craniocaudal and mediolateral oblique views along with computer-aided detection (CAD). FINDINGS: The breasts are heterogeneously dense, which may obscure small masses. There are no significant masses, abnormal calcifications, or other abnormalities. MM/MM tomosynthesis screening BI IMPRESSION: No mammographic evidence of malignancy. ASSESSMENT: BI-RADS Category 1: Negative RECOMMENDATION: Routine annual mammography screening. 1 year F/U This examination should not preclude the clinical evaluation of a suspicious palpable abnormality. This patient's information was entered into a reminder system with a target due date for their next mammogram. Electronically signed by: Gege Jc DO 10/07/2025 05:16 PM [facility]
== END 2025-10-06 09:25 | disposition home or self-care (01) ==
LOC: HO.US 09:24
PROVIDERS: PCP Internal Medicine; Visit Provider Internal Medicine
DX: R79.89 Other specified abnormal findings of blood chemistry (principal); Z12.31 Encounter for screening mammogram for malignant neoplasm of breast
CPT/HCPCS: 76705; 77063; 77067

== ENCOUNTER → 2025-10-06 09:27 | Outpatient (BNV) | payer OTHER, SELFPAY | PROVIDERS: PCP Internal Medicine; Visit Provider Radiology Vascular & Interventional Radiology | DX: Z12.31 Encounter for screening mammogram for malignant neoplasm of breast (principal) | CPT/HCPCS: 77063; 77067 ==